=== PATIENT | female | born 1950 | race Caucasian/White ===

== ENCOUNTER 2017-04-19 15:28 | Emergency (ER) | payer MEDICARE ==
[2017-04-19] MEDS ORDERED: DEXAMETHASONE 10 MG/ML VIAL IVP STA (16:26)
[2017-04-19] MEDS ORDERED: HYDROmorphone 1 MG/ML SYRINGE IVP STA (16:26)
--- NOTE | 2017-04-19 16:28 | ED Physician Documentation ---
History of Present Illness - Stated complaint Stated Complaint: LEFT LEG PX - Chief complaint Chief Complaint: Ext Problem - History obtained from History obtained from: Patient, Family - History of Present Illness Timing: Other (67-year-old woman with fibromyalgia and chronic arthritis maintained on MS Contin 3 times daily presents with about 2 weeks of slowly worsening atraumatic lateral left leg pain that feels like she is being hit with a sledgehammer. She does not find any particular position more or less comfortable. There is no associated incontinence and she denies weakness, numbness, or tingling. She has chronic back pain which is not increased from its baseline. She also has significant worsening chronic pedal edema which was not helped with her last dose of Lasix. There is no associated chest pain, trouble breathing, or history of heart or renal issues.) Review of Systems Constitutional: denies: Fever, Chills Cardiac: denies: Chest pain / pressure, Palpitations Respiratory: denies: Dyspnea, Cough GI: denies: Abdominal Pain, Nausea, Vomiting PD PAST MEDICAL HISTORY - Past Medical History Cardiovascular: Hypertension, High cholesterol Respiratory: None Neuro: CVA, TIA Endocrine/Autoimmune: HyPOthyroidism GI: None MANAGER OF PROJECT MANAGEMENT: None : None HEENT: None Psych: Depression, Anxiety, Panic attacks Musculoskeletal: Osteoarthritis Derm: None - Past Surgical History Past Surgical History: Yes General: Appendectomy Ortho: Arthroscopic surgery /MANAGER OF PROJECT MANAGEMENT: Dilation and currettage, Tubal ligation - Present Medications Home Medications: Ambulatory Orders Medication Instructions Recorded Confirmed HYDROcod/ACETAM 5/325 [Vicodin 1 - 2 ea PO Q6H PRN 02/05/13 07/05/15 5/325] Levothyroxine [Synthroid] 125 mcg PO QDAC 02/05/13 07/05/15 Lisinopril 10 mg PO DAILY 10/24/13 07/05/15 Simvastatin [Zocor] 40 mg PO HS 10/24/13 07/05/15 traZODone [Desyrel] 150 mg PO ONCE 10/24/13 07/05/15 Aspirin 325 mg PO DAILY 11/15/13 07/05/15 Morphine ER [Ms Contin] 60 mg PO Q8H 11/16/13 07/05/15 Diphenoxylate/Atropine [Lomotil] 1 each PO QID PRN #8 tablet 01/02/14 07/05/15 Ondansetron [Zofran] 4 mg PO Q6H PRN #10 tablet 01/02/14 07/05/15 Oxycodone HCl/Acetaminophen 1 - 2 tab PO Q4H PRN #10 tablet 07/20/15 [Percocet 5-325 mg Tablet] oxyCODONE [Roxicodone] 10 mg PO Q6H PRN #20 tablet 04/19/17 predniSONE [Deltasone] 20 mg PO [id number] #21 tab 04/19/17 - Allergies Allergies/Adverse Reactions: Allergies Allergy/AdvReac Type Severity Reaction Status Date / Time naproxen [From Naprosyn] Allergy Mild Unknown Verified 07/05/15 14:25 - Social History Does the pt smoke?: No Smoking Status: Never smoker Does the pt drink ETOH?: No Does the pt have substance abuse?: No - Immunizations Immunizations are current?: Yes - POLST Patient has POLST: Yes POLST Status: DNR PD ED PE NORMAL - Vitals Vital signs reviewed: Yes - General General: Alert and oriented X 3, No acute distress - Cardiac Cardiac: RRR, No murmur - Respiratory Respiratory: No respiratory distress, Clear bilaterally - Abdomen Abdomen: Non tender - Extremities Extremities: Other (She has massive pedal edema that is pitting of both legs and both legs are tender, left greater than right, all the tenderness is below the knee. She does have mildly diminished sensation in the left L4 distribution , I am unable to check reflexes because of body habitus and discomfort.) - Neuro Neuro: Alert and oriented X 3, Normal speech - Psych Psych: Normal mood, Normal affect Results - Vitals Vitals: Vital Signs - 24 hr 04/19/17 04/19/17 15:45 17:56 Temperature 36.6 C Heart Rate 66 68 Respiratory 22 16 Rate Blood Pressure 134/82 H 135/78 H O2 Saturation 95 97 Oxygen O2 Source Room air - Labs Labs: Laboratory Tests 04/19/17 04/19/17 04/19/17 17:05 17:05 17:05 WBC 12.6 H RBC 4.27 Hgb 13.7 Hct 41.7 MCV 97.5 MCH 32.1 H MCHC 32.9 RDW 14.5 Plt Count 178 MPV 8.9 Neut # 7.4 H Lymph # 4.0 H [place] # 0.8 Eos # 0.4 Baso # 0.0 Absolute Nucleated RBC 0.01 Nucleated RBCs 0.1 Sodium 139 Potassium 3.8 Chloride 100 L Carbon Dioxide 30 Anion Gap 9.0 BUN 23 H Creatinine 0.9 Estimated GFR (MDRD) 63 L Glucose 136 H Calcium 9.2 B-Natriuretic Peptide 48 - Rads (name of study) BLE dopplers Radiology: EMP read contemporaneously (neg) PD MEDICAL DECISION MAKING - ED course ED course: 67-year-old woman with what seems like sciatica, there was no injury. DVT is considered but ultrasound negative for same. She does have significant edema and takes intermittent Lasix at home and an extra dose tonight was recommended. Departure - Departure Disposition: Home, Self Care Clinical Impression: Pedal edema Pain of lower extremity Qualifiers: Laterality: left Qualified Code(s): M79.605 - Pain in left leg Condition: Good Record reviewed to determine appropriate education?: Yes Prescriptions: predniSONE [Deltasone] 20 mg PO [id number] #21 tab oxyCODONE [Roxicodone] 10 mg PO Q6H PRN #20 tablet PRN Reason: Pain Comments: Take an extra dose of Lasix tonight. Hopefully the steroids will help with what seems like sciatica. Call Dr. Cramer's office in the morning for further guidance. Return for new symptoms.
[2017-04-19] MEDS ORDERED: DEXAMETHASONE 10 MG/ML VIAL ONE (16:59)
[2017-04-19] MEDS ORDERED: HYDROmorphone 1 MG/ML SYRINGE ONE (16:59)
[2017-04-19 17:21] LABS: BASOPHILS % (AUTO) 0.4 %; EOSINOPHILS # (AUTO) 0.4 10^3/uL (0.0-0.7); EOSINOPHILS % (AUTO) 2.9 %; HCT - HEMATOCRIT 41.7 % (37.0-47.0); HGB - HEMOGLOBIN 13.7 g/dL (12.0-16.0); LYMPHOCYTES % (AUTO) 31.5 %; MEAN CORPUSCULAR HEMOGLOBIN 32.1 pg (27.0-31.0); MEAN CORPUSCULAR HGB CONC 32.9 g/dL (32.0-36.0); MEAN CORPUSCULAR VOLUME 97.5 fL (81.0-99.0); MEAN PLATELET VOLUME 8.9 fL (7.9-10.8); MONOCYTES # (AUTO) 0.8 10^3/uL (0.0-1.0); MONOCYTES % (AUTO) 6.6 %; NEUTROPHILS # (AUTO) 7.4 10^3/uL (1.5-6.6); NEUTROPHILS % (AUTO) 58.6 %; NUCLEATED RED BLOOD CELLS AUTO 0.1 /100WBC; RED BLOOD COUNT 4.27 10^6/uL (4.20-5.40); RED CELL DISTRIBUTION WIDTH 14.5 % (12.0-15.0); UNCORRECTED WHITE BLOOD COUNT 12.6 x10^3/uL; WHITE BLOOD COUNT 12.6 x10^3/uL (4.8-10.8)
[2017-04-19 17:30] LABS: CALCIUM 9.2 mg/dL (8.5-10.3); CREATININE 0.9 mg/dL (0.4-1.0); POTASSIUM 3.8 mmol/L (3.5-5.0)
[2017-04-19] MEDS ORDERED: ACETAMINOPHEN 1,000 MG/100 ML 100 ML IV STA (18:10)
[2017-04-19] MEDS ORDERED: ACETAMINOPHEN 1,000 MG/100 ML 100 ML IV ONE (18:17)
--- NOTE | 2017-04-19 18:53 | Ultrasound Preliminary Report ---
Exam: US Duplex Ext Veins Bilateral IMPRESSION: No evidence for deep venous thrombosis bilaterally. [facility] SITE ID: [id number]
--- NOTE | 2017-04-19 18:55 | Ultrasound Report ---
EXAM: BILATERAL LOWER EXTREMITY VENOUS ULTRASOUND EXAM DATE: 04/19/2017 06:40 PM. CLINICAL HISTORY: Leg pain and swelling. COMPARISON: None. TECHNIQUE: Real-time sonographic vascular imaging was performed by the leave specialist through the lower extremities utilizing both color-flow and Doppler spectral analysis. Multiple ict sales representative static i mages were saved for review. FINDINGS: Right: Common Femoral Vein (CFV): Normal. CFV-GSV Junction: Normal. Profunda Femoral Vein (PFV): Normal. Femoral Vein (FV) Prox: Normal. Femoral Vein (FV) Mid: Normal. Femoral Vein (FV) Dist: Normal. Popliteal Vein: Normal. Posterior Tibial Veins: Normal. Peroneal Veins: Normal. Left: Common Femoral Vein (CFV): Normal. CFV-GSV Junction: Normal. Profunda Femoral Vein (PFV): Normal. Femoral Vein (FV) Prox: Normal. Femoral Vein (FV) Mid: Normal. Femoral Vein (FV) Dist: Normal. Popliteal Vein: Normal. Posterior Tibial Veins: Normal. Peroneal Veins: Normal. Other: None. IMPRESSION: No evidence for deep venous thrombosis bilaterally. [facility] Referring Provider Line: [phone] SITE ID: [id number]
[2017-04-19 19:27] VITALS: BP 153/87
== END 2017-04-19 19:25 | disposition home or self-care (01) ==
LOC: ED 15:28
DX: R60.0 Localized edema (principal); M79.605 Pain in left leg; I10 Essential (primary) hypertension; E78.00 Pure hypercholesterolemia, unspecified; Z86.73 Personal history of transient ischemic attack (TIA), and cerebral infarction without residual deficits; E03.9 Hypothyroidism, unspecified; M19.90 Unspecified osteoarthritis, unspecified site; M79.7 Fibromyalgia; Z79.82 Long term (current) use of aspirin
CPT/HCPCS: 36415; 80048; 83880; 85025; 93970; 96374; 96375; 99283; 99284; J0131; J1170

== ENCOUNTER 2017-05-18 05:56 | Outpatient (CLI) | payer MEDICARE | END 2017-05-18 05:57 | disposition critical access hospital (66) | LOC: EMS 05:56 | PROVIDERS: ATTEND Surgery | DX: R46.4 Slowness and poor responsiveness (principal); R53.83 Other fatigue; R53.1 Weakness | CPT/HCPCS: A0425; A0429 ==

== ENCOUNTER 2017-05-18 06:17 | Emergency (ER) | payer MEDICARE ==
[2017-05-18] MEDS ORDERED: DEXAMETHASONE 10 MG/ML VIAL IVP STA (07:32)
[2017-05-18] MEDS ORDERED: SODIUM CHLORIDE 0.9% 1,000 ML IV ONE (07:32)
--- NOTE | 2017-05-18 07:40 | ED Physician Documentation ---
PD HPI ALTERED MENTAL STATUS - Stated complaint Stated Complaint: POSS CVA - Chief complaint Chief Complaint: Neuro - History obtained from History obtained from: Patient, Family - History of Present Illness Timing - onset: Enter time (399), Today Timing - duration: Hours Timing - details: Abrupt onset, Still present Quality / character: Less responsive, Confused, Memory Loss Associated symptoms: Fever, Urinary sx, General weakness Contributing factors: No: Anticoagulated Basline status: Alert and oriented X 3, Ambulatory, Independent Similar symptoms before: Diagnosis (CVA) Recently seen: Emergency Dept (Seen here last month with leg swelling and this improved with prednisone.) - Additional information Additional information: 67-year-old female with a prior history of CVA, leaving her with some speech difficulties, has developed some weakness and speech latency this morning. She was last seen normal 2:30 PM yesterday when she went to bed. She woke at 04:00 and is having some difficulty with generalized weakness and speech latency. She is having trouble with short-term memory and with returning answers. She has generalized and not lateralized weakness and she has had fever and chills. She has had some urinary incontinence as it is been difficult for her to get out of bed in time to get to the bathroom. She has normal swelling of her lower extremities and she relates that the amount of redness is about the same as usual and the amount of swelling is slightly more than normal. She complains of difficulty with her equilibrium and balance and shakiness. Review of Systems Constitutional: reports: Fever, Chills, Fatigue, Sweats Eyes: denies: Decreased vision Ears: denies: Ear pain Nose: denies: Rhinorrhea / runny nose, Congestion Throat: denies: Dental pain / toothache, Sore throat Cardiac: denies: Chest pain / pressure, Palpitations Respiratory: denies: Dyspnea, Cough GI: denies: Abdominal Pain, Nausea, Vomiting, Constipation, Diarrhea : reports: Incontinent. denies: Dysuria Skin: denies: Rash Musculoskeletal: reports: Extremity pain, Extremity swelling. denies: Neck pain , Back pain Neurologic: reports: Generalized weakness, Altered mental status. denies: Focal weakness, Numbness, Headache, Head injury, LOC PD PAST MEDICAL HISTORY - Past Medical History Cardiovascular: Hypertension, High cholesterol Respiratory: None Neuro: CVA, TIA Endocrine/Autoimmune: HyPOthyroidism GI: None BUSINESS RELATIONS MANAGER: None : None HEENT: None Psych: Depression, Anxiety, Panic attacks Musculoskeletal: Osteoarthritis Derm: None - Past Surgical History Past Surgical History: Yes General: Appendectomy Ortho: Arthroscopic surgery /BUSINESS RELATIONS MANAGER: Dilation and currettage, Tubal ligation - Present Medications Home Medications: Ambulatory Orders Medication Instructions Recorded Confirmed HYDROcod/ACETAM 5/325 [Vicodin 1 - 2 ea PO Q6H PRN 02/05/13 05/18/17 5/325] Levothyroxine [Synthroid] 125 mcg PO QDAC 02/05/13 05/18/17 traZODone [Desyrel] 200 mg PO DAILY PM 10/24/13 05/18/17 Aspirin 325 mg PO DAILY 11/15/13 05/18/17 Morphine ER [Ms Contin] 60 mg PO Q8H 11/16/13 05/18/17 Ondansetron [Zofran] 4 mg PO Q6H PRN #10 tablet 01/02/14 05/18/17 Azithromycin [Zithromax] 250 mg PO DAILY #6 tablet 05/18/17 - Allergies Allergies/Adverse Reactions: Allergies Allergy/AdvReac Type Severity Reaction Status Date / Time naproxen [From Naprosyn] Allergy Mild Unknown Verified 05/18/17 06:26 - Social History Does the pt smoke?: No Smoking Status: Never smoker Does the pt drink ETOH?: No Does the pt have substance abuse?: No - Immunizations Immunizations are current?: Yes - POLST Patient has POLST: Yes POLST Status: DNR PD ED PE NORMAL - Vitals Vital signs reviewed: Yes (Febrile and hypertensive) - General General: No acute distress, Well developed/nourished - HEENT HEENT: Atraumatic, PERRL, EOMI, Other (There are 3 beats of nystagmus laterally bilaterally and both TMs are erythematous along the umbo and into the attic.) - Neck Neck: Supple, no meningeal sign, No bony TTP - Cardiac Cardiac: RRR, No murmur - Respiratory Respiratory: No respiratory distress, Clear bilaterally - Abdomen Abdomen: Soft, Non tender, Other (Obese) - Back Back: No CVA TTP, No spinal TTP - Derm Derm: Normal color, Warm and dry, No rash - Extremities Extremities: No deformity, Other (Marked pitting edema bilaterally with some erythema to the anterior calves bilaterally worse on the right than the left.) - Neuro Neuro: No motor deficit, No sensory deficit - Psych Psych: Normal mood, Normal affect Results - Vitals Vitals: Vital Signs - 24 hr 05/18/17 05/18/17 05/18/17 06:19 07:05 08:21 Temperature 37.8 C H 36.8 C Heart Rate 83 74 73 Respiratory 18 13 16 Rate Blood Pressure 158/78 H 149/67 H 119/73 O2 Saturation 96 94 97 05/18/17 05/18/17 05/18/17 09:23 10:44 11:27 Temperature 36.7 C 36.4 C L Heart Rate 76 67 65 Respiratory 16 16 18 Rate Blood Pressure 130/76 126/101 H 155/82 H O2 Saturation 95 95 88 L 05/18/17 05/18/17 13:30 16:29 Temperature Heart Rate 63 64 Respiratory 15 20 Rate Blood Pressure 125/60 135/68 H O2 Saturation 96 95 Oxygen O2 Source Nasal cannula Oxygen Flow Rate 2 - EKG (time done) 0744 Rate: Rate (enter#) (70) QRS: Low voltage Compare to prior EKG: Changed from prior EKG (SPT 11-15-13 rate has slowed) Computer interpretation: Agree with computer - Labs Labs: Laboratory Tests 05/18/17 05/18/17 05/18/17 06:55 06:55 06:55 WBC 15.9 H RBC 4.23 Hgb 13.5 Hct 40.9 MCV 96.9 MCH 31.9 H MCHC 33.0 RDW 14.5 Plt Count 218 MPV 8.2 Neut # 13.5 H Lymph # 1.6 [place] # 0.6 Eos # 0.0 Baso # 0.2 H Absolute Nucleated RBC 0.00 Nucleated RBCs 0.0 Sodium 141 Potassium 4.3 Chloride 100 L Carbon Dioxide 32 Anion Gap 9.0 BUN 14 Creatinine 1.0 Estimated GFR (MDRD) 56 L Glucose 144 H Calcium 9.0 Total Bilirubin 0.2 AST 26 ALT 14 Alkaline Phosphatase 50 Troponin I 0.05 Total Protein 7.1 Albumin 3.5 Globulin 3.6 Albumin/Globulin Ratio 1.0 Lipase 36 Urine Color Urine Clarity Urine pH Ur Specific [place] Urine Protein Urine Glucose (UA) Urine Ketones Urine Occult Blood Urine Nitrite Urine Bilirubin Urine Urobilinogen Ur Leukocyte Esterase Ur Microscopic Review Urine Culture Comments 05/18/17 05/18/17 08:36 16:16 WBC RBC Hgb Hct MCV MCH MCHC RDW Plt Count MPV Neut # Lymph # [place] # Eos # Baso # Absolute Nucleated RBC Nucleated RBCs Sodium Potassium Chloride Carbon Dioxide Anion Gap BUN Creatinine Estimated GFR (MDRD) Glucose Calcium Total Bilirubin AST ALT Alkaline Phosphatase Troponin I < 0.04 Total Protein Albumin Globulin Albumin/Globulin Ratio Lipase Urine Color DARK YELLOW Urine Clarity CLEAR Urine pH 5.5 Ur Specific [place] >=1.030 H Urine Protein NEGATIVE Urine Glucose (UA) NEGATIVE Urine Ketones NEGATIVE Urine Occult Blood NEGATIVE Urine Nitrite NEGATIVE Urine Bilirubin NEGATIVE Urine Urobilinogen 0.2 (NORMAL) Ur Leukocyte Esterase NEGATIVE Ur Microscopic Review NOT INDICATED Urine Culture Comments NOT INDICATED - Rads (name of study) CT head without Radiology: Prelim report reviewed (Impression: 1. No acute intracranial abnormality.2. Encephalomalacia in the left frontal lobe and bilateral cerebellum are demonstrated similar to the prior examination.), EMP read indepedently, See rad report 2 view chest Radiology: Prelim report reviewed (Impression: No focal consolidation.), EMP read indepedently, See rad report CT angio chest Radiology: Prelim report reviewed (Impression: 1. No evidence for pulmonary emboli bilaterally. 2. No focal airspace consolidation. 3. No mediastinal or hilar lymphadenopathy. 4. 4.2 cm right thyroid nodule. Dedicated thyroid ultrasound could be obtained for further evaluation. 5. Possible 1.3 cm left adrenal nodule. Adrenal protocol CT could be obtained for further evaluation if clinically indicated.), EMP read indepedently, See rad report Procedures - IVC sono (time) 0740 Bedside IVC sono: IVC measures (cm) (0.89), Dehydration PD MEDICAL DECISION MAKING - ED course Complexity details: reviewed old records, reviewed results, re-evaluated patient , considered differential, d/w patient, d/w family ED course: 67-year-old female with a history of prior CVA has woken this morning with speech latency word finding and urinary incontinence with a fever. She is found to be dehydrated on interrogation of the inferior vena cava she does also appear to have some nystagmus and complaints of disequilibrium and on examination has inflammation bilaterally in the middle ear. Here in the emergency department she is given intravenous saline and dexamethasone and a catheterized urine specimen is obtained. The patient did have elevation of her white blood cell count and low-grade fever and hypoxia with room air sat in the upper 80s. For this reason I was concerned about the possibility of alternative diagnosis specifically pulmonary embolism and a CT angiogram of the chest was obtained demonstrating no evidence of pulmonary embolism and no obvious infection or pathology in the chest itself. Her hypoxia resolved. The patient does have dramatic improvement in her general overall affect and ability to perform. She is able to get up and ambulate in the department with use of her walker she passes her road test, a repeat troponin is without abnormality, and she appears more hydrated. She does require medication for her pains here in the emergency department and she requests more pain medication and she is instructed to follow-up with her prescriber for adjustments to her medications. The patient has been treated for otitis media and she indicates that she has been having some issues with vertigo and with extraneous sounds especially through the right ear. She has an incidental right thyroid nodule and she will follow up with Dr. Cramer for further work up. Departure - Departure Disposition: 01 Home, Self Care Clinical Impression: Dehydration, Pedal edema Otitis media Qualifiers: Otitis media type: suppurative Chronicity: acute Laterality: bilateral Recurrence: not specified as recurrent Spontaneous tympanic membrane rupture: without spontaneous rupture Qualified Code(s): H66.003 - Acute suppurative otitis media without spontaneous rupture of ear drum, bilateral Instructions: ED Dehydration, ED Otitis Media Acute Adult Follow-Up: Madeline Cramer MD [Primary Care Provider] - Prescriptions: Azithromycin [Zithromax] 250 mg PO DAILY #6 tablet
[2017-05-18 07:52] LABS: BASOPHILS # (AUTO) 0.2 10^3/uL (0.0-0.1); BASOPHILS % (AUTO) 1.3 %; EOSINOPHILS % (AUTO) 0.3 %; HCT - HEMATOCRIT 40.9 % (37.0-47.0); HGB - HEMOGLOBIN 13.5 g/dL (12.0-16.0); LYMPHOCYTES # (AUTO) 1.6 10^3/uL (1.5-3.5); LYMPHOCYTES % (AUTO) 9.8 %; MEAN CORPUSCULAR HEMOGLOBIN 31.9 pg (27.0-31.0); MEAN CORPUSCULAR VOLUME 96.9 fL (81.0-99.0); MEAN PLATELET VOLUME 8.2 fL (7.9-10.8); MONOCYTES # (AUTO) 0.6 10^3/uL (0.0-1.0); MONOCYTES % (AUTO) 3.7 %; NEUTROPHILS # (AUTO) 13.5 10^3/uL (1.5-6.6); NEUTROPHILS % (AUTO) 84.9 %; RED BLOOD COUNT 4.23 10^6/uL (4.20-5.40); RED CELL DISTRIBUTION WIDTH 14.5 % (12.0-15.0); UNCORRECTED WHITE BLOOD COUNT 15.9 x10^3/uL; WHITE BLOOD COUNT 15.9 x10^3/uL (4.8-10.8)
[2017-05-18 08:03] LABS: BILIRUBIN,TOTAL 0.2 mg/dL (0.2-1.0); POTASSIUM 4.3 mmol/L (3.5-5.0); TOTAL PROTEIN 7.1 g/dL (6.7-8.2)
[2017-05-18] MEDS ORDERED: DEXAMETHASONE 10 MG/ML VIAL ONE (08:14)
--- NOTE | 2017-05-18 08:22 | XRAY Preliminary Report ---
Exam: XR Chest 2 View PA/LAT IMPRESSION: No focal consolidation. [facility] SITE ID: [id number]
--- NOTE | 2017-05-18 08:24 | XRAY Report ---
EXAM: CHEST RADIOGRAPHY EXAM DATE: 05/18/2017 08:06 AM. CLINICAL HISTORY: Fever confusion. COMPARISON: None. TECHNIQUE: 2 views. FINDINGS: Lungs/Pleura: No focal opacities evident. No pleural effusion. No pneumothorax. Normal volumes. Mediastinum: The heart is enlarged. The pulmonary vasculature is within normal limits. Other: Multilevel mild degenerative disk disease throughout the thoracic spine. IMPRESSION: No focal consolidation. [facility] Referring Provider Line: [phone] SITE ID: [id number]
--- NOTE | 2017-05-18 08:26 | CT Preliminary Report ---
Exam: CT Head W/O IMPRESSION: 1. No acute intracranial abnormality. 2. Encephalomalacia in the left frontal lobe and bilateral cerebellum are redemonstrated similar to t he prior examination. [facility] SITE ID: [id number]
--- NOTE | 2017-05-18 08:29 | CT Report ---
EXAM: CT HEAD EXAM DATE: 05/18/2017 08:10 AM. CLINICAL HISTORY: Confusion . COMPARISON: Head CT dated 07/20/2015. TECHNIQUE: Multiaxial CT images were obtained from the foramen magnum to the vertex. IV contrast: Non e. Reformats: Coronal. In accordance with CT protocol optimization, one or more of the following dose reduction techniques w ere utilized for this exam: automated exposure control, adjustment of mA and/or KV based on patient s ize, or use of iterative reconstructive technique. FINDINGS: Parenchyma: Encephalomalacia in the left frontal lobe and bilateral cerebellum are similar to the fani or examination. No intraparenchymal hemorrhage. No evidence of mass, midline shift, or CT findings of infarction. Otherwise. Extraaxial Spaces: Normal for age. No subdural or epidural collections identified. Ventricles: Normal in size and position. Sinuses: Imaged paranasal sinuses, orbits, and mastoids show no significant abnormality. Bones: No evidence of fracture or calvarial defect. Other: None. IMPRESSION: 1. No acute intracranial abnormality. 2. Encephalomalacia in the left frontal lobe and bilateral cerebellum are redemonstrated similar to t he prior examination. [facility] Referring Provider Line: [phone] SITE ID: [id number]
[2017-05-18 08:56] LABS: BILIRUBIN,URINE NEGATIVE (NEGATIVE); PH,URINE 5.5 PH (5.0-7.5)
[2017-05-18 08:59] LABS: UA CHARGE (STRIP ONLY) YES; UR CULTURE IF IND NOT INDICATED
[2017-05-18] MEDS ORDERED: MORPHINE ER 15 MG TABLET PO STA (10:35)
[2017-05-18] MEDS ORDERED: HYDROcod/ACETAM 10 MG/325 MG TABLET PO ONE (10:38)
[2017-05-18] MEDS ORDERED: HYDROcod/ACETAM 10 MG/325 MG TABLET ONE ×2 (10:48→16:33)
[2017-05-18] MEDS ORDERED: IOPAMIDOL-300 100 ML VIAL IVP ONE ×2 (12:54)
--- NOTE | 2017-05-18 13:41 | CT Preliminary Report ---
Exam: CT Chest Angio (PE) IMPRESSION: 1. No evidence for pulmonary emboli bilaterally. 2. No focal airspace consolidation. 3. No mediastinal or hilar lymphadenopathy. 4. 4.2 cm right thyroid nodule. Dedicated thyroid ultrasound could be obtained for further evaluation . 5. Possible 1.3 cm left adrenal nodule. Adrenal protocol CT could be obtained for further evaluation if clinically indicated. [facility] SITE ID: [id number]
--- NOTE | 2017-05-18 13:43 | CT Report ---
EXAM: CT ANGIOGRAM CHEST EXAM DATE: 05/18/2017 01:04 PM. CLINICAL HISTORY: Hypoxia, clear x-ray. COMPARISON: Radiograph from earlier today. TECHNIQUE: Routine helical imaging was performed through the chest in the pulmonary arterial phase. I V Contrast: 80 cc Isovue 300. Reconstructions: Coronal 3-D MIP reconstructions.Sagittal and coronal. In accordance with CT protocol optimization, one or more of the following dose reduction techniques w ere utilized for this exam: automated exposure control, adjustment of mA and/or KV based on patient s ize, or use of iterative reconstructive technique. FINDINGS: Pulmonary Arteries: Diagnostic quality: Adequate through the segmental arteries. No evidence for acute or chronic pulmona ry emboli. RV/LV is within normal limits. There is no interventricular septal bowing. There is no reflux of cont rast material in the IVC. Lungs/Pleura: No consolidation, nodules, or edema. Mild scarring in the inferior right middle lobe an d lung bases. No effusions or pneumothorax. Mediastinum: Enlargement of the right thyroid with a focal 4.2 cm nodule, and resultant mild leftward deviation of the trachea. No evidence for tracheal compression. Thoracic Aorta: Unremarkable. Upper Abdomen: Possible 1.3 cm left adrenal nodule, incompletely visualized. Otherwise unremarkable. Other: None. IMPRESSION: 1. No evidence for pulmonary emboli bilaterally. 2. No focal airspace consolidation. 3. No mediastinal or hilar lymphadenopathy. 4. 4.2 cm right thyroid nodule. Dedicated thyroid ultrasound could be obtained for further evaluation . 5. Possible 1.3 cm left adrenal nodule. Adrenal protocol CT could be obtained for further evaluation if clinically indicated. [facility] Referring Provider Line: [phone] SITE ID: [id number]
[2017-05-18] MEDS ORDERED: HYDROcod/ACETAM 10 MG/325 MG TABLET PO STA (16:24)
[2017-05-18 17:47] VITALS: BP 130/70
== END 2017-05-18 17:40 | disposition home or self-care (01) ==
LOC: EDUNIT# → ED 06:17
DX: E86.0 Dehydration (principal); H66.003 Acute suppurative otitis media without spontaneous rupture of ear drum, bilateral; R09.02 Hypoxemia; I10 Essential (primary) hypertension; E78.00 Pure hypercholesterolemia, unspecified; E03.9 Hypothyroidism, unspecified; Z79.82 Long term (current) use of aspirin; Z86.73 Personal history of transient ischemic attack (TIA), and cerebral infarction without residual deficits
CPT/HCPCS: 36415; 51701; 70450; 71020; 71275; 80053; 81003; 83690; 84484; 85025; 93005; 96361; 96374; 99284; 99285; A9270; Q9967; 81001; 87086

== ENCOUNTER 2017-06-16 10:15 | Outpatient (CLI) | payer MEDICARE | END 2017-06-16 10:16 | disposition EMS.NT | LOC: EMS 10:15 | PROVIDERS: ATTEND Surgery | DX: Z03.89 Encounter for observation for other suspected diseases and conditions ruled out (principal); W18.39XA Other fall on same level, initial encounter; Y92.032 Bedroom in apartment as the place of occurrence of the external cause ==

== ENCOUNTER 2017-12-28 16:45 | Outpatient (CLI) | payer MEDICARE ==
[2017-12-28 17:29] LABS: ALBUMIN 3.8 g/dL (3.2-5.5); ALBUMIN/GLOBULIN RATIO 1.1 (1.0-2.2); ALKALINE PHOSPHATASE 50 IU/L (42-121); ALT ALANINE AMINOTRANSFERASE 10 IU/L (10-60); AST ASPARTATE AMINOTRANSFERASE 18 IU/L (10-42); BILIRUBIN,TOTAL 0.7 mg/dL (0.2-1.0); BUN - BLOOD UREA NITROGEN 15 mg/dL (6-20); CALCIUM 8.9 mg/dL (8.5-10.3); CARBON DIOXIDE - CO2 30 mmol/L (21-32); CHLORIDE 101 mmol/L (101-111); CHOL/HDL RATIO 4.3 (<4.4); CHOLESTEROL 200 mg/dL; CREATININE 0.8 mg/dL (0.4-1.0); GFR - MDRD 72 (>89); GLUCOSE 95 mg/dL (70-100); HDL CHOLESTEROL 47 mg/dL; LDL CHOLESTEROL,CALCULATED 122 mg/dL; LDL/HDL RATIO 2.6 (<4.4); SODIUM 140 mmol/L (135-145); TOTAL PROTEIN 7.2 g/dL (6.7-8.2); VLDL CHOLESTEROL 31 mg/dL
[2017-12-28 17:50] LABS: BASOPHILS # (AUTO) 0.1 10^3/uL (0.0-0.1); BASOPHILS % (AUTO) 0.5 %; EOSINOPHILS # (AUTO) 0.2 10^3/uL (0.0-0.7); HGB - HEMOGLOBIN 13.7 g/dL (12.0-16.0); LYMPHOCYTES # (AUTO) 3.2 10^3/uL (1.5-3.5); LYMPHOCYTES % (AUTO) 30.1 %; MEAN CORPUSCULAR HEMOGLOBIN 31.8 pg (27.0-31.0); MEAN CORPUSCULAR HGB CONC 32.7 g/dL (32.0-36.0); MEAN CORPUSCULAR VOLUME 97.1 fL (81.0-99.0); MEAN PLATELET VOLUME 8.7 fL (7.9-10.8); MONOCYTES # (AUTO) 0.6 10^3/uL (0.0-1.0); MONOCYTES % (AUTO) 6.1 %; NEUTROPHILS # (AUTO) 6.4 10^3/uL (1.5-6.6); NEUTROPHILS % (AUTO) 61.3 %; PLT - PLATELET COUNT 166 10^3/uL (130-450); RED BLOOD COUNT 4.31 10^6/uL (4.20-5.40); RED CELL DISTRIBUTION WIDTH 14.1 % (12.0-15.0); WHITE BLOOD COUNT 10.5 x10^3/uL (4.8-10.8)
[2017-12-28 18:30] LABS: HB2 TOTAL 15.3 g/dL; HEMOGLOBIN A1C 0.6 g/dL; HEMOGLOBIN A1C % 5.7 % (4.6-6.2)
== END 2017-12-28 16:46 | disposition home or self-care (01) ==
LOC: LAB 16:45
PROVIDERS: ATTEND Internal Medicine
DX: I10 Essential (primary) hypertension (principal); R73.01 Impaired fasting glucose; M19.90 Unspecified osteoarthritis, unspecified site; F32.9 Major depressive disorder, single episode, unspecified; Z13.6 Encounter for screening for cardiovascular disorders; I63.9 Cerebral infarction, unspecified; I87.2 Venous insufficiency (chronic) (peripheral); E03.9 Hypothyroidism, unspecified; R60.9 Edema, unspecified; Z79.899 Other long term (current) drug therapy
CPT/HCPCS: 36415; 80053; 80061; 83036; 83721; 84443; 85025

== ENCOUNTER 2018-07-06 15:46 | Emergency (ER) | payer MEDICARE ==
[2018-07-06 16:21] LABS: BASOPHILS % (AUTO) 0.3 %; EOSINOPHILS % (AUTO) 0.3 %; LYMPHOCYTES # (AUTO) 3.8 10^3/uL (1.5-3.5); LYMPHOCYTES % (AUTO) 27.2 %; MEAN CORPUSCULAR HEMOGLOBIN 32.1 pg (27.0-31.0); MEAN CORPUSCULAR HGB CONC 33.7 g/dL (32.0-36.0); MEAN PLATELET VOLUME 8.3 fL (7.9-10.8); NEUTROPHILS % (AUTO) 65.2 %; PLT - PLATELET COUNT 200 10^3/uL (130-450); RED BLOOD COUNT 4.37 10^6/uL (4.20-5.40); RED CELL DISTRIBUTION WIDTH 13.9 % (12.0-15.0); WHITE BLOOD COUNT 13.8 x10^3/uL (4.8-10.8)
[2018-07-06 16:34] LABS: ALBUMIN 4.1 g/dL (3.2-5.5); ALBUMIN/GLOBULIN RATIO 1.2 (1.0-2.2); CALCIUM 9.3 mg/dL (8.5-10.3); CREATININE 0.8 mg/dL (0.4-1.0); TOTAL PROTEIN 7.4 g/dL (6.7-8.2)
--- NOTE | 2018-07-06 17:51 | XRAY Report ---
Reason: chest tightness Procedure Date: 07/06/2018 Accession Number: [id number] / [id number] Procedure: XR - Chest 2 View X-Ray CPT Code: 35468 FULL RESULT: EXAM: CHEST RADIOGRAPHY EXAM DATE: 07/06/2018 05:23 PM. CLINICAL HISTORY: Chest tightness. COMPARISON: CHEST 2 VIEW PA/LAT 05/18/2017 7:34 AM. TECHNIQUE: 2 views. FINDINGS: Lungs/Pleura: No focal opacities evident. No pleural effusion. No pneumothorax. Normal volumes. Mediastinum: Heart and mediastinal contours are unremarkable. Other: There is bilateral shoulder degenerative disease. IMPRESSION: No acute intrathoracic plain film abnormality. [facility]
--- NOTE | 2018-07-06 18:47 | ED Physician Documentation ---
PD HPI CHEST PAIN - Stated complaint Stated Complaint: HEART FLUTTER/HIGH BP SENT BY DOC - Chief complaint Chief Complaint: Cardiac - History obtained from History obtained from: Patient - History of Present Illness Timing - onset: How many weeks ago (has had headaches and nausea for several weeks. Has had some dyspnea and chest fluttering for few days. Is feeling anxious and is sad thinking about family members that had a year ago.) Timing - onset during: Light activity Timing - details: Intermittant, Waxing and waning Quality: Tightness (and feeling of fluttering in chest) Location: Substernal Radiation: Back. No: Jaw, Neck Associated symptoms: Feeling faint / dizzy, General Weakness, Palpitations. No: Shortness of air, Nausea, Vomiting, Cough Similar symptoms before: No diagnosis Recently seen: Clinic (seen PMD without particular Rx.) Review of Systems Constitutional: reports: Myalgias. denies: Fever, Chills Nose: denies: Rhinorrhea / runny nose, Congestion Throat: denies: Sore throat Cardiac: reports: Chest pain / pressure, Palpitations, Pedal edema (chronic ly mphedema). denies: Calf pain Respiratory: denies: Dyspnea, Cough GI: reports: Nausea, Constipation. 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 : None HEENT: None Psych: Depression, Anxiety, Panic attacks Musculoskeletal: Osteoarthritis Derm: None - Past Surgical History Past Surgical History: Yes General: Appendectomy Ortho: Arthroscopic surgery /HOGSHEAD PRESS OPERATOR: Dilation and currettage, Tubal ligation - Present Medications Home Medications: Ambulatory Orders Medication Instructions Recorded Confirmed HYDROcod/ACETAM 5/325 [Vicodin 1 - 2 ea PO Q6H PRN 02/05/13 07/06/18 5/325] Levothyroxine [Synthroid] 125 mcg PO QDAC 02/05/13 07/06/18 traZODone [Desyrel] 200 mg PO DAILY PM 10/24/13 07/06/18 Aspirin 325 mg PO DAILY 11/15/13 07/06/18 Morphine ER [Ms Contin] 60 mg PO Q8H 11/16/13 07/06/18 Ondansetron [Zofran] 4 mg PO Q6H PRN #10 tablet 01/02/14 07/06/18 Famotidine [Pepcid] 20 mg PO ONCE #30 tablet 07/06/18 Lisinopril 10 mg PO DAILY #20 tablet 07/06/18 Lorazepam [Ativan] 1 mg PO Q8H PRN #12 tablet 07/06/18 - Allergies Allergies/Adverse Reactions: Allergies Allergy/AdvReac Type Severity Reaction Status Date / Time naproxen [From Naprosyn] Allergy Mild Unknown Verified 07/06/18 15:59 - Social History Does the pt smoke?: No Smoking Status: Never smoker Does the pt drink ETOH?: No Does the pt have substance abuse?: No - Immunizations Immunizations are current?: Yes - POLST Patient has POLST: Yes POLST Status: DNR PD ED PE NORMAL - Vitals Vital signs reviewed: Yes - General General: Alert and oriented X 3, Well developed/nourished, Other (tearful and appears sad) - HEENT HEENT: Pharynx benign - Neck Neck: Supple, no meningeal sign, No adenopathy - Cardiac Cardiac: RRR, No murmur - Respiratory Respiratory: Clear bilaterally - Abdomen Abdomen: Normal bowel sounds, Soft, Non tender, Non distended - Female Female : Deferred - Rectal Rectal: Deferred - Back Back: No CVA TTP - Derm Derm: Normal color, Warm and dry - Extremities Extremities: No deformity, No tenderness to palpate, No calf tenderness / cord, Other (large legs bilaterally c/w lymphedema. ) - Neuro Neuro: Alert and oriented X 3, No motor deficit, Normal speech Results - Vitals Vitals: Vital Signs - 24 hr 07/06/18 07/06/18 07/06/18 15:55 18:03 19:42 Temperature 37.3 C 36.7 C Heart Rate 59 L 53 L 51 L Respiratory 17 18 12 Rate Blood Pressure 168/77 H 151/88 H 179/75 H O2 Saturation 96 99 98 07/06/18 07/06/18 20:27 21:19 Temperature Heart Rate 44 L 45 L Respiratory 11 L 15 Rate Blood Pressure 193/71 H 145/76 H O2 Saturation 94 94 Oxygen O2 Source Room air - EKG (time done) 15:57 Rate: Rate (enter#) (60) Rhythm: NSR [place]: Normal Intervals: Normal [place] Ischemia: Normal ST segments. No: ST elevation c/w ischemia, ST depression - Labs Labs: Laboratory Tests 07/06/18 07/06/18 07/06/18 16:12 16:12 16:12 WBC 13.8 H RBC 4.37 Hgb 14.0 Hct 41.5 MCV 95.0 MCH 32.1 H MCHC 33.7 RDW 13.9 Plt Count 200 MPV 8.3 Neut # (Auto) 9.0 H Lymph # (Auto) 3.8 H [place] # (Auto) 1.0 Eos # (Auto) 0.0 Baso # (Auto) 0.0 Absolute Nucleated RBC 0.00 Nucleated RBC % 0.0 Sodium 140 Potassium 3.5 Chloride 102 Carbon Dioxide 28 Anion Gap 10.0 BUN 14 Creatinine 0.8 Estimated GFR (MDRD) 72 L Glucose 108 H Calcium 9.3 Total Bilirubin 1.0 AST 22 ALT 11 Alkaline Phosphatase 56 Troponin I < 0.04 Total Protein 7.4 Albumin 4.1 Globulin 3.3 Albumin/Globulin Ratio 1.2 Lipase 25 Urine Color Urine Clarity Urine pH Ur Specific [place] Urine Protein Urine Glucose (UA) Urine Ketones Urine Occult Blood Urine Nitrite Urine Bilirubin Urine Urobilinogen Ur Leukocyte Esterase Ur Microscopic Review Urine Culture Comments 07/06/18 19:10 WBC RBC Hgb Hct MCV MCH MCHC RDW Plt Count MPV Neut # (Auto) Lymph # (Auto) [place] # (Auto) Eos # (Auto) Baso # (Auto) Absolute Nucleated RBC Nucleated RBC % Sodium Potassium Chloride Carbon Dioxide Anion Gap BUN Creatinine Estimated GFR (MDRD) Glucose Calcium Total Bilirubin AST ALT Alkaline Phosphatase Troponin I Total Protein Albumin Globulin Albumin/Globulin Ratio Lipase Urine Color DARK YELLOW Urine Clarity CLEAR Urine pH 7.0 Ur Specific [place] 1.010 Urine Protein NEGATIVE Urine Glucose (UA) NEGATIVE Urine Ketones NEGATIVE Urine Occult Blood TRACE-LYSE Urine Nitrite NEGATIVE Urine Bilirubin NEGATIVE Urine Urobilinogen 0.2 (NORMAL) Ur Leukocyte Esterase NEGATIVE Ur Microscopic Review NOT INDICATED Urine Culture Comments NOT INDICATED - Rads (name of study) chest xray Radiology: Prelim report reviewed (no intrathoracic abnormalities; shoulder arthritis bilaterally) PD MEDICAL DECISION MAKING - ED course Complexity details: considered differential (her granddaughter thinks it is stress as she had similar symptoms last year when family members , and the patient has been thinking about them recently. No obvious signs of CAD/ACS. ), d/w patient Departure - Departure Disposition: 01 Home, Self Care Clinical Impression: Chest discomfort, Grief reaction, Elevated blood pressure reading, Nausea Condition: Stable Record reviewed to determine appropriate education?: Yes Instructions: ED Chest Pain NonCardiac Follow-Up: Madeline Cramer MD [Primary Care Provider] - Prescriptions: Famotidine [Pepcid] 20 mg PO ONCE #30 tablet Lisinopril 10 mg PO DAILY #20 tablet Lorazepam [Ativan] 1 mg PO Q8H PRN #12 tablet PRN Reason: Anxiety Comments: We can start you on lisinopril daily for the next couple of weeks. This may not necessarily be a long-term medication if your blood pressure is elevated in response to situational grief and anxiety. Your EKG the chest x-ray and blood tests are normal without any signs of heart disease. Your nausea you have had might be related to a stomach irritation and I would suggest trying famotidine daily for a month to see if it helps. Continue usual medications. Use Ativan 2-3 times a day if needed for anxiety. Follow-up with your primary care this coming week. Discharge Date/Time: 07/06/18 21:33
[2018-07-06] MEDS ORDERED: MORPHINE ER 15 MG TABLET PO STA (19:22)
[2018-07-06] MEDS ORDERED: oxyCODONE 5 MG TABLET PO STA (19:23)
[2018-07-06] MEDS ORDERED: LORazepam 0.5 MG TABLET PO STA (19:23)
[2018-07-06] MEDS ORDERED: LISINOPRIL 5 MG TABLET PO STA (19:23)
[2018-07-06] MEDS: FAMOTIDINE 20 MG TABLET PO STA ×2 (20:06→20:53)
[2018-07-06 20:30] LABS: BILIRUBIN,URINE NEGATIVE (NEGATIVE); GLUCOSE, URINE (UA) NEGATIVE (NEGATIVE); KETONES,URINE (UA) NEGATIVE (NEGATIVE); LEUKOCYTE ESTERASE, URINE NEGATIVE (NEGATIVE); NITRITE,URINE NEGATIVE (NEGATIVE); OCCULT BLOOD,URINE TRACE-LYSE (NEGATIVE); PROTEIN,URINE NEGATIVE (NEGATIVE); UROBILINOGEN,URINE 0.2 (NORMAL) E.U./dL (NORMAL)
[2018-07-06 20:34] LABS: CLARITY,URINE CLEAR (CLEAR)
[2018-07-06] MEDS ORDERED: ACETAMINOPHEN 325 MG TABLET PO STA (21:19)
[2018-07-06 21:20] VITALS: BP 145/76
== END 2018-07-06 21:33 | disposition home or self-care (01) ==
LOC: ED 15:46
DX: R07.89 Other chest pain (principal); F43.20 Adjustment disorder, unspecified; I10 Essential (primary) hypertension; R11.0 Nausea
CPT/HCPCS: 36415; 71046; 80053; 81003; 83690; 84484; 85025; 93005; 99284; A9270; 81001; 87086

== ENCOUNTER 2018-12-21 18:18 | Emergency (ER) | payer MEDICARE ==
[2018-12-21 19:47] LABS: LEUKOCYTE ESTERASE, URINE LARGE (NEGATIVE); NITRITE,URINE POSITIVE (NEGATIVE); OCCULT BLOOD,URINE SMALL (NEGATIVE); PROTEIN,URINE >=300 mg/dL (NEGATIVE)
[2018-12-21 20:03] LABS: CLARITY,URINE HAZY (CLEAR)
[2018-12-21 20:04] LABS: BILIRUBIN,URINE NEGATIVE (NEGATIVE); ICTOTEST,URINE NEGATIVE
[2018-12-21 20:06] LABS: BACTERIA,URINE Many /HPF (None Seen); RBC,URINE 0-5 /HPF (0-5); SQUAMOUS EPITHELIAL CELL,UR FEW Squamous (<= Few); WBC CLUMPS,URINE PRESENT
[2018-12-21] MEDS ORDERED: LIDOCAINE 1% 2 ML VIAL MC ONE (20:32)
[2018-12-21] MEDS ORDERED: cefTRIAXone 1 GM VIAL IM STA (20:32)
--- NOTE | 2018-12-21 20:34 | ED Physician Documentation ---
PD HPI FEMALE - Stated complaint Stated Complaint: FEM /NAUSEA - Chief complaint Chief Complaint: General - History obtained from History obtained from: Patient, Family - History of Present Illness Timing - onset: How many days ago (4) Timing - duration: Days (4) Timing - details: Gradual onset, Still present Associated symptoms: Back pain, Dysuria, Urinary frequency Similar symptoms before: Diagnosis (UTI) Recently seen: Not recently seen - Additional information Additional information: 68-year-old female with a prior history of CVA has developed urinary urgency frequency and dysuria over the past 4 days. She has had some vomiting which she will periodically get over the past year and a half. She thinks she may have had a fever periodically over the last 4 days. She has some low back pain associated with this as well. Review of Systems Constitutional: reports: Fever, Chills, Myalgias, Fatigue Eyes: denies: Decreased vision Ears: denies: Ear pain Nose: denies: Rhinorrhea / runny nose, Congestion Throat: denies: Sore throat Cardiac: denies: Chest pain / pressure, Palpitations Respiratory: denies: Dyspnea, Cough GI: reports: Nausea, Vomiting. denies: Abdominal Pain : reports: Dysuria, Frequency Skin: denies: Rash Musculoskeletal: reports: Back pain. 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 : None HEENT: None Psych: Depression, Anxiety, Panic attacks Musculoskeletal: Osteoarthritis Derm: None - Past Surgical History Past Surgical History: Yes General: Appendectomy Ortho: Arthroscopic surgery /SIGNALS COLLECTOR/ANALYST: Dilation and currettage, Tubal ligation - Present Medications Home Medications: Ambulatory Orders Medication Instructions Recorded Confirmed HYDROcod/ACETAM 5/325 [Vicodin 1 - 2 ea PO Q6H PRN 02/05/13 07/06/18 5/325] Levothyroxine [Synthroid] 125 mcg PO QDAC 02/05/13 07/06/18 traZODone [Desyrel] 200 mg PO DAILY PM 10/24/13 07/06/18 Aspirin 325 mg PO DAILY 11/15/13 07/06/18 Morphine ER [Ms Contin] 60 mg PO Q8H 11/16/13 07/06/18 Ondansetron [Zofran] 4 mg PO Q6H PRN #10 tablet 01/02/14 07/06/18 Famotidine [Pepcid] 20 mg PO ONCE #30 tablet 07/06/18 Lisinopril 10 mg PO DAILY #20 tablet 07/06/18 Lorazepam [Ativan] 1 mg PO Q8H PRN #12 tablet 07/06/18 Sulfamethoxazole/Trimethoprim 1 each PO BID #14 tablet 12/21/18 [Sulfamethoxazole-Tmp Ds Tablet] - Allergies Allergies/Adverse Reactions: Allergies Allergy/AdvReac Type Severity Reaction Status Date / Time naproxen [From Naprosyn] Allergy Mild Unknown Verified 12/21/18 18:38 - Social History Does the pt smoke?: No Smoking Status: Never smoker Does the pt drink ETOH?: No Does the pt have substance abuse?: No - Immunizations Immunizations are current?: Yes - POLST Patient has POLST: Yes POLST Status: DNR PD ED PE NORMAL - Vitals Vital signs reviewed: Yes (normal ) - General General: Alert and oriented X 3, No acute distress, Well developed/nourished, Other (slight speech latency is evident and rescued by daughter. ) - HEENT HEENT: Atraumatic, PERRL, EOMI - Neck Neck: Supple, no meningeal sign - Cardiac Cardiac: RRR, No murmur - Respiratory Respiratory: No respiratory distress, Clear bilaterally - Abdomen Abdomen: Soft, Non tender - Back Back: No CVA TTP, No spinal TTP, Other (lower lumbar muscle tenderness) - Derm Derm: Normal color, Warm and dry, No rash - Extremities Extremities: No deformity, No edema - Neuro Neuro: Alert and oriented X 3, sourcing intern 2-12 intact, No motor deficit, No sensory deficit, Normal speech Eye Opening: Spontaneous Motor: Obeys Commands Verbal: Oriented GCS Score: 15 - Psych Psych: Normal mood, Normal affect Results - Vitals Vitals: Vital Signs - 24 hr 12/21/18 12/21/18 12/21/18 18:32 18:37 19:49 Temperature 36.6 C 36.6 C Heart Rate 65 65 48 L Respiratory 18 19 16 Rate Blood Pressure 118/65 118/65 133/59 H O2 Saturation 95 95 95 Oxygen O2 Source Room air - Labs Labs: Laboratory Tests 12/21/18 19:43 Urine Color ORANGE Urine Clarity HAZY Urine pH 5.0 Ur Specific [place] 1.010 Urine Protein >=300 H Urine Glucose (UA) Urine Ketones Urine Occult Blood SMALL H Urine Nitrite POSITIVE H Urine Bilirubin NEGATIVE Urine Urobilinogen Ur Leukocyte Esterase LARGE H Urine RBC 0-5 Urine WBC >25 H Urine WBC Clumps PRESENT Ur Squamous Epith Cells FEW Squamous Urine Bacteria Many H Ur Microscopic Review INDICATED Urine Culture Comments INDICATED PD MEDICAL DECISION MAKING - ED course Complexity details: considered differential, d/w patient, d/w family ED course: 68-year-old female with comorbidities and a urinary tract infection is administered Rocephin IM and will place her on some . Her urine did make the great for culture. Departure - Departure Disposition: 01 Home, Self Care Clinical Impression: Urinary tract infection Qualifiers: Urinary tract infection type: acute cystitis Hematuria presence: without hematuria Qualified Code(s): N30.00 - Acute cystitis without hematuria Condition: Stable Instructions: ED UTI Cystitis Female Follow-Up: Madeline Cramer MD [Primary Care Provider] - Prescriptions: Sulfamethoxazole/Trimethoprim [Sulfamethoxazole-Tmp Ds Tablet] 1 each PO BID #14 tablet
[2018-12-21 20:43] VITALS: BP 108/71
== END 2018-12-21 20:44 | disposition home or self-care (01) ==
LOC: ED 18:18
DX: N30.00 Acute cystitis without hematuria (principal); I10 Essential (primary) hypertension; Z86.73 Personal history of transient ischemic attack (TIA), and cerebral infarction without residual deficits; Z79.82 Long term (current) use of aspirin; Z66 Do not resuscitate
CPT/HCPCS: 81001; 81003; 87086; 87181; 96372; 99283

== ENCOUNTER 2019-03-12 12:30 | Outpatient (CLI) | payer MEDICARE | END 2019-03-12 12:31 | disposition critical access hospital (66) | LOC: EMS 12:30 | PROVIDERS: ATTEND Surgery | DX: R11.2 Nausea with vomiting, unspecified (principal); R10.30 Lower abdominal pain, unspecified | CPT/HCPCS: A0425; A0427 ==

== ENCOUNTER 2019-03-12 12:52 | Emergency (ER) | payer MEDICARE ==
[2019-03-12 13:33] LABS: BASOPHILS # (AUTO) 0.1 10^3/uL (0.0-0.1); BASOPHILS % (AUTO) 0.4 %; EOSINOPHILS % (AUTO) 0.1 %; HGB - HEMOGLOBIN 16.3 g/dL (12.0-16.0); LYMPHOCYTES # (AUTO) 1.3 10^3/uL (1.5-3.5); LYMPHOCYTES % (AUTO) 7.2 %; MEAN CORPUSCULAR HEMOGLOBIN 32.1 pg (27.0-31.0); MEAN CORPUSCULAR HGB CONC 33.3 g/dL (32.0-36.0); MEAN CORPUSCULAR VOLUME 96.4 fL (81.0-99.0); MEAN PLATELET VOLUME 9.8 fL (7.9-10.8); MONOCYTES # (AUTO) 0.7 10^3/uL (0.0-1.0); MONOCYTES % (AUTO) 3.8 %; NEUTROPHILS # (AUTO) 16.2 10^3/uL (1.5-6.6); NEUTROPHILS % (AUTO) 88.2 %; PLT - PLATELET COUNT 198 10^3/uL (130-450); RED BLOOD COUNT 5.07 10^6/uL (4.20-5.40); RED CELL DISTRIBUTION WIDTH 13.2 % (12.0-15.0); WHITE BLOOD COUNT 18.4 x10^3/uL (4.8-10.8)
[2019-03-12] MEDS ORDERED: FAMOTIDINE 20 MG/2 ML VIAL IVP STA (13:46)
[2019-03-12] MEDS ORDERED: HALOPERIDOL 5 MG/ML VIAL IVP ONE (13:46)
[2019-03-12] MEDS ORDERED: CAPSAICIN 0.025% CREAM 60 GM TUBE TOP STA (13:47)
[2019-03-12 13:49] LABS: ALBUMIN 4.4 g/dL (3.2-5.5); ALBUMIN/GLOBULIN RATIO 1.3 (1.0-2.2); BILIRUBIN,TOTAL 1.1 mg/dL (0.2-1.0); CALCIUM 9.8 mg/dL (8.5-10.3); TOTAL PROTEIN 7.9 g/dL (6.7-8.2)
--- NOTE | 2019-03-12 13:49 | ED Physician Documentation ---
PD HPI NVD - Stated complaint Stated Complaint: N/V - Chief complaint Chief Complaint: Abd Pain - History obtained from History obtained from: Patient, Family - History of Present Illness Timing - onset: How many months ago (several months) Timing - duration: Months Timing - details: Intermittant, Waxing and waning Severity Comments: moderate Associated symptoms: Abdominal pain. No: Fever, Chest pain, Hematemesis, Melena, Hematochezia, Dizzy, Near syncope / syncope, Dysuria, Hematuria, Vaginal bleeding Contributing factors: No: Sick contact, Bad food, Travel, Recent antibiotics, Anticoagulated Improved by: Other (nothing) Worsened by: Eating Similar symptoms before: Other (Patient takes chronic narcotics for fibromyalgia and uses marijuana regularly) Recently seen: Not recently seen Review of Systems Ten Systems: 10 systems reviewed and negative Constitutional: denies: Fever, Chills Cardiac: reports: Reviewed and negative Respiratory: reports: Reviewed and negative GI: reports: Abdominal Pain, Nausea, Vomiting. 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 : None HEENT: None Psych: Depression, Anxiety, Panic attacks Musculoskeletal: Osteoarthritis Derm: None - Past Surgical History Past Surgical History: Yes General: Appendectomy Ortho: Arthroscopic surgery /APPLIANCE REPAIRER: Dilation and currettage, Tubal ligation - Present Medications Home Medications: Ambulatory Orders Medication Instructions Recorded Confirmed HYDROcod/ACETAM 5/325 [Vicodin 1 - 2 ea PO Q6H PRN 02/05/13 07/06/18 5/325] Levothyroxine [Synthroid] 125 mcg PO QDAC 02/05/13 07/06/18 traZODone [Desyrel] 200 mg PO DAILY PM 10/24/13 07/06/18 RX: Aspirin 325 mg PO DAILY 11/15/13 07/06/18 Morphine ER [Ms Contin] 60 mg PO Q8H 11/16/13 07/06/18 Ondansetron [Zofran] 4 mg PO Q6H PRN #10 tablet 01/02/14 07/06/18 Lorazepam [Ativan] 1 mg PO Q8H PRN #12 tablet 07/06/18 RX: Famotidine [Pepcid] 20 mg PO ONCE #30 tablet 07/06/18 RX: Lisinopril 10 mg PO DAILY #20 tablet 07/06/18 Promethazine [Phenergan] 25 - 50 mg PO Q6H PRN #10 tab 03/12/19 - Allergies Allergies/Adverse Reactions: Allergies Allergy/AdvReac Type Severity Reaction Status Date / Time naproxen [From Naprosyn] Allergy Mild Unknown Verified 03/12/19 12:59 - Social History Does the pt smoke?: No Smoking Status: Never smoker Does the pt drink ETOH?: No Does the pt have substance abuse?: No - Immunizations Immunizations are current?: Yes - POLST Patient has POLST: Yes POLST Status: DNR PD ED PE NORMAL - Vitals Vital signs reviewed: Yes - General General: Alert and oriented X 3, Well developed/nourished, Other (mild distress, nausea) - HEENT HEENT: Atraumatic, Moist mucous membranes, Pharynx benign - Neck Neck: Supple, no meningeal sign, No JVD - Cardiac Cardiac: RRR, No murmur, No gallop, No rub - Respiratory Respiratory: No respiratory distress, Clear bilaterally - Abdomen Abdomen: Soft, Non distended, Other (diffuse mild tenderness, no guarding or rebound ) - Female Female : Deferred - Rectal Rectal: Deferred - Back Back: No CVA TTP - Derm Derm: Normal color, Warm and dry, No rash - Extremities Extremities: No deformity, No edema - Neuro Neuro: Alert and oriented X 3 Eye Opening: Spontaneous Motor: Obeys Commands Verbal: Oriented GCS Score: 15 - Psych Psych: Normal mood, Normal affect (animated) Results - Vitals Vitals: Vital Signs - 24 hr 03/12/19 16:51 Temperature 36.8 C Heart Rate 58 L Respiratory 20 Rate Blood Pressure 163/99 H O2 Saturation 97 Oxygen O2 Source Room air - Labs Labs: Laboratory Tests 03/12/19 03/12/19 03/12/19 13:28 13:28 14:47 WBC 18.4 H RBC 5.07 Hgb 16.3 H Hct 48.9 H MCV 96.4 MCH 32.1 H MCHC 33.3 RDW 13.2 Plt Count 198 MPV 9.8 Neut # (Auto) 16.2 H Lymph # (Auto) 1.3 L [place] # (Auto) 0.7 Eos # (Auto) 0.0 Baso # (Auto) 0.1 Absolute Nucleated RBC 0.00 Nucleated RBC % 0.0 Sodium 142 Potassium 3.6 Chloride 101 Carbon Dioxide 23 Anion Gap 18.0 H BUN 13 Creatinine 1.0 Estimated GFR (MDRD) 55 L Glucose 159 H Calcium 9.8 Total Bilirubin 1.1 H AST 26 ALT 13 Alkaline Phosphatase 63 Total Protein 7.9 Albumin 4.4 Globulin 3.5 Albumin/Globulin Ratio 1.3 Lipase 41 Urine Color YELLOW Urine Clarity HAZY Urine pH 5.0 Ur Specific [place] >=1.030 H Urine Protein 100 H Urine Glucose (UA) NEGATIVE Urine Ketones 15 H Urine Occult Blood NEGATIVE Urine Nitrite NEGATIVE Urine Bilirubin NEGATIVE Urine Urobilinogen 0.2 (NORMAL) Ur Leukocyte Esterase NEGATIVE Urine RBC 0-5 Urine WBC 0-3 Ur Squamous Epith Cells MANY Squamous H Urine Crystals 3-5 Calcium Oxalate Urine Bacteria Many H Urine Mucus Few Strands Ur Microscopic Review INDICATED Urine Culture Comments NOT INDICATED UA shows RBCs and some ketones. neg nitrites or LE thus suspect contaminated sample. Moderate leukocytosis with elevated H&H likely due to bladder vs kidney cancer - Rads (name of study) CT abd/pelvis with contrast Radiology: Final report received (CT shows likely bladder mass, suspicious for malignancy. no other acute abnormality) PD MEDICAL DECISION MAKING - ED course Complexity details: reviewed results, re-evaluated patient, considered differential, d/w patient, d/w family ED course: ddx- gastritis, pancreatitis, cannabinoid hyperemesis, cyclic vomiting, gastr oparesis, hepatitis, cholecystitis, nonspecific abdominal pain 68 y/o F with abdominal pain, nausea and vomiting ongoing for several montsh presents today for worsening symptoms. Taking antiemetics without relief. No fever. Pt does use marijuana regularly. She is nauseous on exam. Her abdomen is benign but given leukocytosis and persistent nausea obtained Ct which shows a bladder mass suggestive of malignancy but no other acute disease. Pt given further antiemetics with improvement and is tolerating PO Discussed these results with pt and advised urgent f/u with PCP for further diagnostic evaluation of this bladder mass and for management of her symptoms. Given return precautions. Pt is stable for outpt f/u Departure - Departure Disposition: 01 Home, Self Care Clinical Impression: Mass of bladder Condition: Fair Record reviewed to determine appropriate education?: Yes Follow-Up: Madeline Cramer MD [Primary Care Provider] - Within 3 Days Prescriptions: Promethazine [Phenergan] 25 - 50 mg PO Q6H PRN #10 tab PRN Reason: Nausea / Vomiting Comments: Your CT scan today was suggestive of bladder cancer. This may be causing your pain but is less likely to be causing your nausea symptoms. Regardless you need to contact your primary care doctor tomorrow to discuss these results and make a plan for follow up and a biopsy of this mass. You can take phenergan or zofran as needed for nausea. Take your pain medicine as needed. Return to the ED if fever or severe pain or inability to tolerate oral fluids. Discharge Date/Time: 03/12/19 17:01
[2019-03-12 14:56] LABS: BILIRUBIN,URINE NEGATIVE (NEGATIVE); GLUCOSE, URINE (UA) NEGATIVE (NEGATIVE); KETONES,URINE (UA) 15 mg/dL (NEGATIVE); LEUKOCYTE ESTERASE, URINE NEGATIVE (NEGATIVE); NITRITE,URINE NEGATIVE (NEGATIVE); OCCULT BLOOD,URINE NEGATIVE (NEGATIVE); PROTEIN,URINE 100 mg/dL (NEGATIVE); UROBILINOGEN,URINE 0.2 (NORMAL) E.U./dL (NORMAL)
[2019-03-12 15:07] LABS: CLARITY,URINE HAZY (CLEAR)
[2019-03-12] MEDS ORDERED: PROMETHAZINE INJ 25 MG in SODIUM CHLORIDE 0.9% 50 ML IV STA (15:12)
[2019-03-12] MEDS ORDERED: IOVERSOL 320 100 ML VIAL IVP ONE ×2 (15:26→15:48)
[2019-03-12 15:30] LABS: BACTERIA,URINE Many /HPF (None Seen); CRYSTALS,URINE 3-5 Calcium Oxalate /LPF; MUCUS,URINE Few Strands; RBC,URINE 0-5 /HPF (0-5); SQUAMOUS EPITHELIAL CELL,UR MANY Squamous (<= Few)
--- NOTE | 2019-03-12 15:58 | CT Report ---
Reason: nausea, vomiting abdominal pain diffusely Procedure Date: 03/12/2019 Accession Number: [id number] / [id number] Procedure: CT - Abdomen/Pelvis W CPT Code: FULL RESULT: EXAM: CT ABDOMEN AND PELVIS EXAM DATE: 03/12/2019 03:35 PM. CLINICAL HISTORY: Nausea, vomiting abdominal pain diffusely. COMPARISONS: CHEST ANGIO 05/18/2017 12:56 PM. TECHNIQUE: Routine helical CT imaging was performed through the abdomen and pelvis. IV contrast: Optiray 320 100 mL. Enteric contrast: No. Reconstructions: Coronal and sagittal. In accordance with CT protocol optimization, one or more of the following dose reduction techniques were utilized for this exam: automated exposure control, adjustment of mA and/or KV based on patient size, or use of iterative reconstructive technique. FINDINGS: Lung Bases: Unremarkable. Liver: Normal. No masses. Gallbladder/Bile Ducts: Unremarkable. Spleen: Normal. Pancreas: Normal. Adrenal Glands: There is a non-characterized 1.6 x 1.3 cm left adrenal nodule, partially imaged on 2017 CT. Right adrenal gland is unremarkable. Kidneys: In the region of the right renal collecting system, the expected right renal pelvis is a 3.0 x 3.9 cm soft tissue density mass, see image 36 series 5 and image 40 series 3. There is no surrounding hydronephrosis. Nonobstructing calculi are seen in the lower pole of the right kidney. With the exception of bilateral renal hypodensities which are too small to characterize, left kidney is unremarkable. Peritoneal Cavity/Bowel: There is no bowel obstruction. There is no free fluid or free air. The appendix is not definitely visualized. No inflammation specifically centered on the cecum. Pelvic Organs: Normal. The bladder and visualized pelvic organs are within normal limits. Vasculature: No aneurysms or other significant abnormality. Bones: No aggressive osseous lesions. Other: None. IMPRESSION: Right renal pelvis mass, suspicious for malignancy. [facility] The call report notification system was initiated by Dr. Terry Aguilar at 03:57 PM on 03/12/2019. ADDENDUM: 03/12/19 16:05 The above call report findings were discussed with [place] by Dr. Terry Aguilar at 04:05 PM on 03/12/2019.
[2019-03-12] MEDS ORDERED: LORazepam 1 MG TABLET PO STA (16:29)
[2019-03-12 16:51] VITALS: BP 163/99
== END 2019-03-12 17:01 | disposition home or self-care (01) ==
LOC: ED 12:52
DX: N32.89 Other specified disorders of bladder (principal); R11.2 Nausea with vomiting, unspecified; I10 Essential (primary) hypertension; Z79.82 Long term (current) use of aspirin
CPT/HCPCS: 36415; 74177; 80053; 81001; 83690; 85025; 96365; 96375; 99284; 99285; A9270; J7040; J8499; Q9967; 81003; 87086

== ENCOUNTER 2019-03-15 12:46 | Outpatient (CLI) | payer MEDICARE ==
--- NOTE | 2019-03-16 22:10 | XRAY Report ---
Reason: CLAVICLE PAIN Procedure Date: 03/15/2019 Accession Number: [id number] / [id number] Procedure: XR - Clavicle RT CPT Code: FULL RESULT: EXAM: RIGHT CLAVICLE RADIOGRAPHY EXAM DATE: 03/15/2019 01:20 PM. CLINICAL HISTORY: CLAVICLE PAIN. COMPARISON: CHEST 2 VIEW 07/06/2018 5:13 PM. TECHNIQUE: 2 views. FINDINGS: Bones: No acute fractures. No suspicious osseous lesions. Joints: Acromioclavicular joint demonstrates moderate osteoarthritis. Sternoclavicular joint is not as well delineated. No subluxations. Soft Tissues: Partially imaged right apex is unremarkable. IMPRESSION: No acute radiographic abnormalities seen. If there is continued concern for mass, contrast-enhanced MRI could be performed for further evaluation. [facility]
== END 2019-03-15 12:47 | disposition home or self-care (01) ==
LOC: DI 12:46
PROVIDERS: ATTEND Internal Medicine
DX: M25.511 Pain in right shoulder (principal)

== ENCOUNTER 2019-06-29 20:07 | Outpatient (CLI) | payer MEDICARE | END 2019-06-29 20:08 | disposition critical access hospital (66) | LOC: EMS 20:07 | PROVIDERS: ATTEND Surgery | DX: R11.0 Nausea (principal); R19.7 Diarrhea, unspecified | CPT/HCPCS: A0425; A0429 ==

== ENCOUNTER 2019-06-29 20:28 | Emergency (ER) | payer MEDICARE ==
--- NOTE | 2019-06-29 20:52 | ED Physician Documentation ---
History of Present Illness - Stated complaint Stated Complaint: WITHDRAWL FROM PAIN MEDS - Chief complaint Chief Complaint: General - History obtained from History obtained from: Patient - History of Present Illness Timing: Yesterday Improved by: nothing Worsened by: no exacerbating factors - Additonal information Additional information: patient has been taking morphine sulfate ER 30mg BID chronically, along with 10mg/325mg hydrocodone BID PRN. She says that she went to her PMD yesterday and was told she could not obtain refills unless she provides urine sample. Patient says she had urinated immediately prior to going to the office and thus was not able to provide the sample. She says that she was denied refills on these prescriptions because she could not provide the sample. Last dose of morphine was yesterday and she took last dose of the hydrocodone earlier today. She c/o withdrawal symptoms, manifest as generalized headache, cold sweats, generalized muscle aching and stiffness, diarrhea, restlessness Review of Systems Constitutional: reports: Chills, Myalgias, Sweats. denies: Fever Cardiac: reports: Reviewed and negative Respiratory: reports: Reviewed and negative GI: reports: Nausea, Diarrhea. 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 : None HEENT: None Psych: Depression, Anxiety, Panic attacks Musculoskeletal: Osteoarthritis Derm: None - Past Surgical History Past Surgical History: Yes General: Appendectomy Ortho: Arthroscopic surgery /LIFT BUILDER WHOLE: Dilation and currettage, Tubal ligation - Present Medications Home Medications: Ambulatory Orders Medication Instructions Recorded Confirmed HYDROcod/ACETAM 5/325 [Vicodin 1 - 2 ea PO Q6H PRN 02/05/13 07/06/18 5/325] Levothyroxine [Synthroid] 125 mcg PO QDAC 02/05/13 07/06/18 traZODone [Desyrel] 200 mg PO DAILY PM 10/24/13 07/06/18 Aspirin 325 mg PO DAILY 11/15/13 07/06/18 Morphine ER [Ms Contin] 60 mg PO Q8H 11/16/13 07/06/18 Ondansetron [Zofran] 4 mg PO Q6H PRN #10 tablet 01/02/14 07/06/18 Famotidine [Pepcid] 20 mg PO ONCE #30 tablet 07/06/18 Lisinopril 10 mg PO DAILY #20 tablet 07/06/18 Lorazepam [Ativan] 1 mg PO Q8H PRN #12 tablet 07/06/18 Promethazine [Phenergan] 25 - 50 mg PO Q6H PRN #10 tab 03/12/19 Hydrocodone/Acetaminophen 1 - 2 each PO BID #8 tablet 06/29/19 [Hydrocodon-Acetaminophen 5-325] Morphine ER 30 mg PO Q12H #4 tablet 06/29/19 - Allergies Allergies/Adverse Reactions: Allergies Allergy/AdvReac Type Severity Reaction Status Date / Time naproxen [From Naprosyn] Allergy Mild Unknown Verified 06/29/19 20:37 - Social History Does the pt smoke?: No Smoking Status: Never smoker Does the pt drink ETOH?: No Does the pt have substance abuse?: No - Immunizations Immunizations are current?: Yes - POLST Patient has POLST: Yes POLST Status: DNR PD ED PE NORMAL - Vitals Vital signs reviewed: Yes - General General: Alert and oriented X 3, Well developed/nourished, Other (appears mildly anxious) - HEENT HEENT: PERRL, EOMI, Moist mucous membranes - Neck Neck: Supple, no meningeal sign - Cardiac Cardiac: RRR, No murmur - Respiratory Respiratory: No respiratory distress, Clear bilaterally - Abdomen Abdomen: Soft, Non tender - Derm Derm: Normal color, Warm and dry Results - Vitals Vitals: Vital Signs - 24 hr 06/29/19 06/29/19 20:33 21:32 Temperature 37.3 C 36.8 C Heart Rate 67 80 Respiratory 16 16 Rate Blood Pressure 185/103 H 164/82 H O2 Saturation 98 99 Oxygen O2 Source Room air PD MEDICAL DECISION MAKING - ED course Complexity details: reviewed old records, reviewed results, re-evaluated patient, considered differential, d/w patient ED course: ALEX reflects regular prescriptions for the medications and doses she reports, and these appear to be prescribed by same physician group. Looking at rebeca latisha/timing of previous prescriptions, she would be due for refill at about this time. Given a dose of morphine sulfate ER 30mg in ED as well as take-home 5/325mg hydrocodone/acetaminophen, and provided prescriptions for these medications (2 day supply). She understands that she needs to contact PMD on Monday. I do not see an ED visit pattern s/o drug-seeking behavior. Departure - Departure Disposition: Home, Self Care Clinical Impression: Narcotic withdrawal Condition: Good Instructions: ED Withdrawal Narcotic Follow-Up: Madeline Cramer MD [Primary Care Provider] - (Call Monday to arrange for immediate appointment) Prescriptions: Hydrocodone/Acetaminophen [Hydrocodon-Acetaminophen 5-325] 1 - 2 each PO BID #8 tablet Morphine ER 30 mg PO Q12H #4 tablet Discharge Date/Time: 06/29/19 21:32
[2019-06-29] MEDS ORDERED: MORPHINE ER 15 MG TABLET PO STA (21:09)
[2019-06-29] MEDS ORDERED: HYDROcod/ACET 5/325 Prepack 4 PO STA (21:10)
[2019-06-29 21:33] VITALS: BP 164/82
== END 2019-06-29 21:32 | disposition home or self-care (01) ==
LOC: EDUNIT# → ED 20:28
DX: F11.23 Opioid dependence with withdrawal (principal); I10 Essential (primary) hypertension; Z79.82 Long term (current) use of aspirin; Z66 Do not resuscitate
CPT/HCPCS: 99283; 99284; A9270

== ENCOUNTER 2019-07-15 13:04 | Outpatient (CLI) | payer MEDICARE | END 2019-07-15 13:05 | disposition critical access hospital (66) | LOC: EMS 13:04 | PROVIDERS: ATTEND Surgery | DX: R41.0 Disorientation, unspecified (principal); R53.83 Other fatigue; R51 Headache; R11.2 Nausea with vomiting, unspecified | CPT/HCPCS: A0425; A0427 ==

== ENCOUNTER 2019-07-15 13:24 | Emergency (ER) | payer MEDICARE ==
--- NOTE | 2019-07-15 13:43 | ED Physician Documentation ---
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 Her daughter called the ambulance today because over the past 2 days she is been very fatigued and sleeping more than usual. She seems to have increasing confusion that was worse today and so the daughter called the ambulance. For the past 2 days the patient has been in bed. The daughter has had to assist her to a bedside commode. She has not really wanted to eat anything. She is been dropping things and seemed more confused. She is complaining of her chronic headache but no other complaints of pain. Last night she had some nausea was vomiting some bile. She was given Zofran in route. Blood pressure was 160s in route and Accu-Chek was in the 160s. Patient denies any other acute symptoms of coughing, dysuria. She has chronic pain and takes 30 mg extended release morphine 3 times a day in addition to hydrocodone 10 mg as needed. She also takes clonazepam, Prozac, trazodone. Daughter also admits that they smoke marijuana together. The daughter says that about a month and a half ago her mom had an episode that she thought might of been a stroke but she did not bring her in at that time in fact she had symptoms of confusion and being very sleepy that seemed to get better after she thought she had the stroke and so the daughter thought it might of "reset things". She is acting now very similar to what she acted like prior to a month and a half ago. The daughter is adamant that she could not have any access or taken additional medications at home because she monitors the amount that is left in the pill bottles. Review of Systems Constitutional: denies: Fever Ears: denies: Ear pain Nose: denies: Congestion Throat: denies: Sore throat PD PAST MEDICAL HISTORY - Present Medications Home Medications: Ambulatory Orders Medication Instructions Recorded Confirmed HYDROcod/ACETAM 5/325 [Vicodin 1 - 2 ea PO Q6H PRN 02/05/13 07/06/18 5/325] Levothyroxine [Synthroid] 125 mcg PO QDAC 02/05/13 07/06/18 traZODone [Desyrel] 200 mg PO DAILY PM 10/24/13 07/06/18 Aspirin 325 mg PO DAILY 11/15/13 07/06/18 Morphine ER [Ms Contin] 60 mg PO Q8H 11/16/13 07/06/18 Ondansetron [Zofran] 4 mg PO Q6H PRN #10 tablet 01/02/14 07/06/18 Famotidine [Pepcid] 20 mg PO ONCE #30 tablet 07/06/18 Lisinopril 10 mg PO DAILY #20 tablet 07/06/18 Lorazepam [Ativan] 1 mg PO Q8H PRN #12 tablet 07/06/18 Promethazine [Phenergan] 25 - 50 mg PO Q6H PRN #10 tab 03/12/19 Hydrocodone/Acetaminophen 1 - 2 each PO BID #8 tablet 06/29/19 [Hydrocodon-Acetaminophen 5-325] Morphine ER 30 mg PO Q12H #4 tablet 06/29/19 - Allergies Allergies/Adverse Reactions: Allergies Allergy/AdvReac Type Severity Reaction Status Date / Time naproxen [From Naprosyn] Allergy Mild Unknown Verified 07/15/19 13:27 Results - Vitals Vitals: Vital Signs - 24 hr 07/15/19 07/15/19 07/15/19 13:28 15:50 17:00 Temperature 36.7 C Heart Rate 65 60 60 Respiratory 18 12 16 Rate Blood Pressure 191/99 H 191/106 H 188/95 H O2 Saturation 98 98 99 Oxygen O2 Source Room air - EKG (time done) 1343 Rate: Rate (enter#) (65) Rhythm: NSR Intervals: No: Wide QRS Ischemia: Non specific changes 1756 Rate: Rate (enter#) (63) Rhythm: NSR Intervals: No: Wide QRS Ischemia: Normal ST segments Compare to prior EKG: Unchanged from prior EKG - Labs Labs: Laboratory Tests 07/15/19 07/15/19 07/15/19 14:21 14:21 14:21 WBC 18.3 H RBC 4.80 Hgb 15.5 Hct 47.2 H MCV 98.3 MCH 32.3 H MCHC 32.8 RDW 13.0 Plt Count 178 MPV 10.1 Neut # (Auto) 14.3 H Lymph # (Auto) 2.3 [place] # (Auto) 1.4 H Eos # (Auto) 0.0 Baso # (Auto) 0.1 Absolute Nucleated RBC 0.00 Nucleated RBC % 0.0 PT 12.9 H INR 1.1 Sodium 141 Potassium 3.4 L Chloride 99 L Carbon Dioxide 28 Anion Gap 14.0 H BUN 14 Creatinine 0.9 Estimated GFR (MDRD) 62 L Glucose 138 H Lactic Acid Calcium 9.6 Total Bilirubin 0.9 AST 31 ALT 12 Alkaline Phosphatase 55 Troponin I High Sens Total Protein 7.9 Albumin 4.2 Globulin 3.7 Albumin/Globulin Ratio 1.1 Lipase 28 Urine Color Urine Clarity Urine pH Ur Specific Jackson Urine Protein Urine Glucose (UA) Urine Ketones Urine Occult Blood Urine Nitrite Urine Bilirubin Urine Urobilinogen Ur Leukocyte Esterase Ur Microscopic Review Urine Culture Comments Urine Opiates Screen Ur Oxycodone Screen Urine Methadone Screen Ur Propoxyphene Screen Ur Barbiturates Screen Ur Tricyclics Screen Ur Phencyclidine Scrn Ur Amphetamine Screen U Methamphetamines Scrn U Benzodiazepines Scrn Urine Cocaine Screen U Cannabinoids Screen Ethyl Alcohol < 5.0 07/15/19 07/15/19 07/15/19 14:21 14:21 16:00 WBC RBC Hgb Hct MCV MCH MCHC RDW Plt Count MPV Neut # (Auto) Lymph # (Auto) Neosho # (Auto) Eos # (Auto) Baso # (Auto) Absolute Nucleated RBC Nucleated RBC % PT INR Sodium Potassium Chloride Carbon Dioxide Anion Gap BUN Creatinine Estimated GFR (MDRD) Glucose Lactic Acid 2.3 H Calcium Total Bilirubin AST ALT Alkaline Phosphatase Troponin I High Sens 22.3 H* Total Protein Albumin Globulin Albumin/Globulin Ratio Lipase Urine Color YELLOW Urine Clarity CLEAR Urine pH 5.5 Ur Specific Jackson 1.025 Urine Protein NEGATIVE Urine Glucose (UA) NEGATIVE Urine Ketones TRACE Urine Occult Blood TRACE-INTA Urine Nitrite NEGATIVE Urine Bilirubin NEGATIVE Urine Urobilinogen 0.2 (NORMAL) Ur Leukocyte Esterase NEGATIVE Ur Microscopic Review NOT INDICATED Urine Culture Comments NOT INDICATED Urine Opiates Screen POSITIVE H Ur Oxycodone Screen NEGATIVE Urine Methadone Screen NEGATIVE Ur Propoxyphene Screen NEGATIVE Ur Barbiturates Screen NEGATIVE Ur Tricyclics Screen NEGATIVE Ur Phencyclidine Scrn NEGATIVE Ur Amphetamine Screen NEGATIVE U Methamphetamines Scrn NEGATIVE U Benzodiazepines Scrn NEGATIVE Urine Cocaine Screen NEGATIVE U Cannabinoids Screen POSITIVE H Ethyl Alcohol 07/15/19 07/15/19 17:55 18:20 WBC RBC Hgb Hct MCV MCH MCHC RDW Plt Count MPV Neut # (Auto) Lymph # (Auto) [place] # (Auto) Eos # (Auto) Baso # (Auto) Absolute Nucleated RBC Nucleated RBC % PT INR Sodium Potassium Chloride Carbon Dioxide Anion Gap BUN Creatinine Estimated GFR (MDRD) Glucose Lactic Acid 1.6 Calcium Total Bilirubin AST ALT Alkaline Phosphatase Troponin I High Sens 21.8 H* Total Protein Albumin Globulin Albumin/Globulin Ratio Lipase Urine Color Urine Clarity Urine pH Ur Specific Jackson Urine Protein Urine Glucose (UA) Urine Ketones Urine Occult Blood Urine Nitrite Urine Bilirubin Urine Urobilinogen Ur Leukocyte Esterase Ur Microscopic Review Urine Culture Comments Urine Opiates Screen Ur Oxycodone Screen Urine Methadone Screen Ur Propoxyphene Screen Ur Barbiturates Screen Ur Tricyclics Screen Ur Phencyclidine Scrn Ur Amphetamine Screen U Methamphetamines Scrn U Benzodiazepines Scrn Urine Cocaine Screen U Cannabinoids Screen Ethyl Alcohol - Rads (name of study) CXR Radiology: EMP read contemporaneously (Neg acute), See rad report CT head Radiology: See rad report (old infarct) CT abd/pelvis Radiology: See rad report PD MEDICAL DECISION MAKING - ED course Complexity details: reviewed results, d/w patient ED course: Patient's white blood cell count was elevated at 18,000. Liver enzymes were normal. Her lactic was up to 2.3 and her troponin was up a little bit at 22. Head CT did not show any acute stroke. Her chest x-ray was clear. The family stopped me and said that she was feeling nauseous so she was given Zofran but they stopped me again and said she was still feeling nauseous so she was given Phenergan 12.5 mg IV. When I went back into reevaluate her and discuss the labs and the need to stay for repeat troponin she was more awake however she was complaining of some abdominal pain. She was tender in the upper abdomen and with the elevated white count and lactic I elected to go ahead and do a CT abdomen pelvis. She has been given a liter of fluids. 184: The repeat troponin wasUnchanged. Patient still complains of feeling nauseous and having abdominal pain but the daughter pipes and that this is been an ongoing issue as well. She has typically Phenergan at home and Zofran. They have been recommended to have endoscopy and colonoscopy but she has not gone yet because they have not been able to arrange rides. The patient does not drive and the patient's daughter is just getting her furniture delivery driver's license. In the meantime I do not see any indication that she needs to be acutely admitted to the hospital. I do have a repeat lactate pending but with completely negative work-up at this point I do not expect any significant change in that or change in my management. The daughter feels comfortable taking her home. We have talked about following through with the endoscopy and colonoscopy. Also obtaining a neurology consult. I also mentioned that I cannot help but wonder if she is overmedicated with the extended release morphine, hydrocodone and Klonopin that could be causing her diminished mental status. Departure - Departure Disposition: 01 Home, Self Care Clinical Impression: Nausea Altered mental status Qualifiers: Altered mental status type: unspecified Qualified Code(s): R41.82 - Altered mental status, unspecified Abdominal pain Qualifiers: Abdominal location: generalized Qualified Code(s): R10.84 - Generalized abdominal pain Condition: Good Instructions: ED Abdominal Pain Unkn Cause Follow-Up: Madeline Cramer MD [Primary Care Provider] - Comments: Take your Zofran and/or Phenergan at home for continued nausea. Follow through with the colonoscopy and endoscopy scheduling as it has been recommended to you. Consider consultation with a neurologist regarding the tremors and mental status changes that have been observed at home. Return to the emergency department if symptoms worsen or other problems arise.
[2019-07-15] MEDS ORDERED: SODIUM CHLORIDE 0.9% 1,000 ML IV ONE ×3 (13:44→17:15)
[2019-07-15 14:28] LABS: BASOPHILS # (AUTO) 0.1 10^3/uL (0.0-0.1); BASOPHILS % (AUTO) 0.4 %; EOSINOPHILS % (AUTO) 0.1 %; HGB - HEMOGLOBIN 15.5 g/dL (12.0-16.0); LYMPHOCYTES # (AUTO) 2.3 10^3/uL (1.5-3.5); LYMPHOCYTES % (AUTO) 12.7 %; MEAN CORPUSCULAR HEMOGLOBIN 32.3 pg (27.0-31.0); MEAN CORPUSCULAR HGB CONC 32.8 g/dL (32.0-36.0); MEAN CORPUSCULAR VOLUME 98.3 fL (81.0-99.0); MEAN PLATELET VOLUME 10.1 fL (7.9-10.8); MONOCYTES # (AUTO) 1.4 10^3/uL (0.0-1.0); MONOCYTES % (AUTO) 7.8 %; NEUTROPHILS # (AUTO) 14.3 10^3/uL (1.5-6.6); NEUTROPHILS % (AUTO) 78.2 %; PLT - PLATELET COUNT 178 10^3/uL (130-450); WHITE BLOOD COUNT 18.3 x10^3/uL (4.8-10.8)
[2019-07-15 14:43] LABS: ALBUMIN 4.2 g/dL (3.2-5.5); ALBUMIN/GLOBULIN RATIO 1.1 (1.0-2.2); ALKALINE PHOSPHATASE 55 IU/L (42-121); ALT ALANINE AMINOTRANSFERASE 12 IU/L (10-60); AST ASPARTATE AMINOTRANSFERASE 31 IU/L (10-42); BILIRUBIN,TOTAL 0.9 mg/dL (0.2-1.0); BUN - BLOOD UREA NITROGEN 14 mg/dL (6-20); CALCIUM 9.6 mg/dL (8.5-10.3); CARBON DIOXIDE - CO2 28 mmol/L (21-32); CHLORIDE 99 mmol/L (101-111); CREATININE 0.9 mg/dL (0.4-1.0); GFR - MDRD 62 (>89); GLUCOSE 138 mg/dL (70-100); LIPASE 28 U/L (22-51); SODIUM 141 mmol/L (135-145); TOTAL PROTEIN 7.9 g/dL (6.7-8.2)
--- NOTE | 2019-07-15 14:44 | CT Report ---
Reason: confusion Procedure Date: 07/15/2019 Accession Number: [id number] / [id number] Procedure: CT - HEAD WO CPT Code: Final Report FULL RESULT: EXAM: CT HEAD EXAM DATE: 07/15/2019 02:04 PM. CLINICAL HISTORY: Confusion. COMPARISON: HEAD W/O 05/18/2017 8:05 AM. TECHNIQUE: Multiaxial CT images were obtained from the foramen magnum to the vertex. Reformats: Sagittal and coronal. IV contrast: None. In accordance with CT protocol optimization, one or more of the following dose reduction techniques were utilized for this exam: automated exposure control, adjustment of mA and/or KV based on patient size, or use of iterative reconstructive technique. FINDINGS: Parenchyma: No intraparenchymal hemorrhage. No evidence of mass, midline shift, or CT findings of acute infarction. Lubin-white differentiation is distinct. Focal areas of chronic encephalomalacia involving the left frontal and left greater than right occipital lobes are similar to previous. Chronic microangiopathic vascular change in the periventricular white matter also noted. Extraaxial Spaces: Normal for age. No acute subdural or epidural collections identified. Ventricles: Normal in size and position. Sinuses and Orbits: Imaged paranasal sinuses, orbits, and mastoids show no significant abnormality. Bones: No evidence of fracture or calvarial defect. Other: No acute findings compared with 05/18/2017 IMPRESSION: Stable chronic changes compared with 05/18/2017. No findings of an acute intracranial process. RADIA
[2019-07-15 14:45] LABS: INR 1.1 (0.8-1.2); PT - PROTHROMBIN TIME 12.9 secs (9.9-12.6)
--- NOTE | 2019-07-15 14:46 | XRAY Report ---
Reason: chest pain Procedure Date: 07/15/2019 Accession Number: [id number] / [id number] Procedure: XR - Chest 1 View X-Ray CPT Code: 77613 Final Report FULL RESULT: EXAM: CHEST RADIOGRAPHY EXAM DATE: 07/15/2019 02:08 PM. CLINICAL HISTORY: Chest pain. COMPARISON: Chest radiograph from 07/06/2018, 05/18/2017. TECHNIQUE: 1 view. FINDINGS: Lungs/Pleura: No focal airspace opacities. No pleural effusion or pneumothorax. Mediastinum: Cardiomediastinal silhouette is within normal limits. Pulmonary vasculature is unremarkable. Other: Severe DJD demonstrated in bilateral glenohumeral joints. IMPRESSION: No acute cardiopulmonary abnormality. RADIA
[2019-07-15 16:04] LABS: MUDS CUTOFF CONCENTRATIONS CUTOFF CONC BELOW:
[2019-07-15 16:07] LABS: BILIRUBIN,URINE NEGATIVE (NEGATIVE); GLUCOSE, URINE (UA) NEGATIVE (NEGATIVE); KETONES,URINE (UA) TRACE mg/dL (NEGATIVE); LEUKOCYTE ESTERASE, URINE NEGATIVE (NEGATIVE); NITRITE,URINE NEGATIVE (NEGATIVE); OCCULT BLOOD,URINE TRACE-INTA (NEGATIVE); PH,URINE 5.5 PH (5.0-7.5); PROTEIN,URINE NEGATIVE (NEGATIVE); UROBILINOGEN,URINE 0.2 (NORMAL) E.U./dL (NORMAL)
[2019-07-15 16:09] LABS: CLARITY,URINE CLEAR (CLEAR)
[2019-07-15 16:17] LABS: AMPHETAMINE SCREEN,URINE NEGATIVE (NEGATIVE); BENZODIAZEPINES SCREEN, URINE NEGATIVE (NEGATIVE); COCAINE SCREEN URINE NEGATIVE (NEGATIVE); METHADONE SCREEN, URINE NEGATIVE (NEGATIVE); METHAMPHETAMINES SCREEN, URINE NEGATIVE (NEGATIVE); OPIATE SCREEN, URINE POSITIVE (NEGATIVE); OXYCODONE SCREEN, URINE NEGATIVE (NEGATIVE); PROPOXYPHENE SCREEN, URINE NEGATIVE (NEGATIVE); TRICYCLIC ANTIDEPRESSANT,URINE NEGATIVE (NEGATIVE)
[2019-07-15] MEDS ORDERED: ONDANSETRON 4 MG/2 ML VIAL IVP STA (16:26)
[2019-07-15] MEDS ORDERED: PROMETHAZINE INJ 12.5 MG in SODIUM CHLORIDE 0.9% 50 ML IV STA (17:05)
[2019-07-15] MEDS ORDERED: IOVERSOL 320 100 ML VIAL IVP ONE ×2 (17:27→17:43)
--- NOTE | 2019-07-15 18:18 | CT Report ---
Reason: abdominal pain; vomiting Procedure Date: 07/15/2019 Accession Number: [id number] / [id number] Procedure: CT - Abdomen/Pelvis W CPT Code: Final Report FULL RESULT: EXAM: CT ABDOMEN AND PELVIS EXAM DATE: 07/15/2019 05:42 PM. CLINICAL HISTORY: Abdominal pain; vomiting. COMPARISONS: ABDOMEN/PELVIS W/ 03/12/2019 3:31 PM CHEST ANGIO 05/18/2017 12:56 PM. TECHNIQUE: Routine helical CT imaging was performed through the abdomen and pelvis. IV contrast: OPTI 320 100ML. Enteric contrast: No. Reconstructions: Coronal and sagittal. In accordance with CT protocol optimization, one or more of the following dose reduction techniques were utilized for this exam: automated exposure control, adjustment of mA and/or KV based on patient size, or use of iterative reconstructive technique. FINDINGS: Lung Bases: Unremarkable. Liver: There may be fatty infiltration. Gallbladder/Bile Ducts: Unremarkable. Spleen: Normal. Pancreas: Mild atrophy and fatty replacement. Adrenal Glands: 1.7 cm left adrenal nodule is unchanged, likely an adenoma. Kidneys: Density lesion in the right renal hilum measuring about 3.7 cm is unchanged. There is a cluster of nonobstructing right renal stones inferiorly measuring up to 5 mm, as before. No obstructing stone or hydronephrosis. 14 mm hypoattenuating right renal cortical lesion is unchanged and likely a cyst. 14 mm superior pole left renal lesion is unchanged and likely a cyst. Peritoneal Cavity/Bowel: No bowel dilation or evidence of obstruction. No free fluid, free air or adenopathy. No acute inflammatory process. The appendix is not identified. No evidence of acute appendicitis. Pelvic Organs: The bladder, uterus and adnexa are unremarkable. Vasculature: Mild atherosclerosis. No aortic aneurysm. Bones: Advanced disk degeneration and facet arthrosis in the lumbar spine. Other: None. IMPRESSION: 1. No acute abnormality identified. 2. Unchanged nonobstructing right renal stones. Unchanged high density lesion in the right renal hilum, which may represent a proteinaceous or hemorrhagic parapelvic cyst. Follow-up ultrasound could further assess. 3. Unchanged small left adrenal nodule, favor adenoma. RADIA
[2019-07-15 19:07] VITALS: BP 203/104
== END 2019-07-15 19:33 | disposition home or self-care (01) ==
LOC: EDUNIT# → ED 13:24
DX: R41.82 Altered mental status, unspecified (principal); R11.0 Nausea; R10.84 Generalized abdominal pain; D72.829 Elevated white blood cell count, unspecified; R25.1 Tremor, unspecified; Z86.73 Personal history of transient ischemic attack (TIA), and cerebral infarction without residual deficits; Z79.82 Long term (current) use of aspirin
CPT/HCPCS: 36415; 70450; 71045; 74177; 80053; 81003; 83605; 83690; 84484; 85025; 85610; 87040; 93005; 96361; 96365; 96375; 99284; J7040; Q9967; 80306; 80320; 81001; 87086

== ENCOUNTER 2019-12-20 00:44 | Outpatient (CLI) | payer MEDICARE | END 2019-12-20 00:45 | disposition critical access hospital (66) | LOC: EMS 00:44 | PROVIDERS: ATTEND Surgery | DX: R51 Headache (principal); R11.2 Nausea with vomiting, unspecified; R47.9 Unspecified speech disturbances; R53.1 Weakness | CPT/HCPCS: A0425; A0427 ==

== ENCOUNTER 2019-12-20 01:03 | Emergency (ER) | payer MEDICARE ==
[2019-12-20] MEDS ORDERED: SODIUM CHLORIDE 0.9% 1,000 ML IV ONE (01:22)
[2019-12-20 01:41] LABS: BASOPHILS # (AUTO) 0.1 10^3/uL (0.0-0.1); BASOPHILS % (AUTO) 0.8 %; EOSINOPHILS # (AUTO) 0.3 10^3/uL (0.0-0.7); EOSINOPHILS % (AUTO) 3.2 %; HGB - HEMOGLOBIN 13.7 g/dL (12.0-16.0); LYMPHOCYTES # (AUTO) 2.8 10^3/uL (1.5-3.5); LYMPHOCYTES % (AUTO) 35.4 %; MEAN CORPUSCULAR HEMOGLOBIN 31.8 pg (27.0-31.0); MEAN CORPUSCULAR HGB CONC 32.2 g/dL (32.0-36.0); MEAN CORPUSCULAR VOLUME 98.8 fL (81.0-99.0); MEAN PLATELET VOLUME 9.8 fL (7.9-10.8); MONOCYTES # (AUTO) 0.6 10^3/uL (0.0-1.0); MONOCYTES % (AUTO) 7.9 %; NEUTROPHILS # (AUTO) 4.1 10^3/uL (1.5-6.6); NEUTROPHILS % (AUTO) 52.4 %; PLT - PLATELET COUNT 137 10^3/uL (130-450); RED BLOOD COUNT 4.31 10^6/uL (4.20-5.40); RED CELL DISTRIBUTION WIDTH 13.1 % (12.0-15.0); WHITE BLOOD COUNT 7.8 x10^3/uL (4.8-10.8)
[2019-12-20 01:49] LABS: ALBUMIN 3.5 g/dL (3.2-5.5); ALBUMIN/GLOBULIN RATIO 1.2 (1.0-2.2); ALKALINE PHOSPHATASE 49 IU/L (42-121); ALT ALANINE AMINOTRANSFERASE < 10 IU/L (10-60); AST ASPARTATE AMINOTRANSFERASE 20 IU/L (10-42); BILIRUBIN,TOTAL 0.8 mg/dL (0.2-1.0); BUN - BLOOD UREA NITROGEN 11 mg/dL (6-20); CALCIUM 8.7 mg/dL (8.5-10.3); CARBON DIOXIDE - CO2 23 mmol/L (21-32); CHLORIDE 98 mmol/L (101-111); CREATININE 0.9 mg/dL (0.4-1.0); GLUCOSE 124 mg/dL (70-100); LIPASE 25 U/L (22-51); SODIUM 133 mmol/L (135-145); TOTAL PROTEIN 6.5 g/dL (6.7-8.2)
--- NOTE | 2019-12-20 02:07 | CT Report ---
Reason: LUE weakness, altered mental status Procedure Date: 12/20/2019 Accession Number: [id number] / [id number] Procedure: CT - HEAD WO CPT Code: Final Report FULL RESULT: EXAM: CT HEAD EXAM DATE: 12/20/2019 01:52 AM. CLINICAL HISTORY: LUE weakness, altered mental status. COMPARISON: HEAD W/O 07/15/2019 1:56 PM. TECHNIQUE: Multiaxial CT images were obtained from the foramen magnum to the vertex. Reformats: Sagittal and coronal. IV contrast: None. In accordance with CT protocol optimization, one or more of the following dose reduction techniques were utilized for this exam: automated exposure control, adjustment of mA and/or KV based on patient size, or use of iterative reconstructive technique. FINDINGS: Parenchyma: No intraparenchymal hemorrhage. No evidence of mass, midline shift, or CT findings of acute infarction. Lubin-white differentiation is distinct. Diffuse chronic microangiopathic white matter changes are evident. Stable left frontal and left greater than right occipital cortical infarction. Extraaxial Spaces: Normal for age. No subdural or epidural collections identified. Ventricles: The ventricles and cortical sulci are enlarged, consistent with age-related tissue loss. Sinuses and orbits: Imaged paranasal sinuses, orbits, and mastoids show no significant abnormality. Bones: No evidence of fracture or calvarial defect. Other: None. IMPRESSION: Generalized age-related cortical atrophic changes and chronic ischemic changes without evidence of acute intracranial abnormality. RADIA
[2019-12-20 02:30] LABS: BILIRUBIN,URINE NEGATIVE (NEGATIVE); GLUCOSE, URINE (UA) NEGATIVE (NEGATIVE); KETONES,URINE (UA) NEGATIVE (NEGATIVE); LEUKOCYTE ESTERASE, URINE NEGATIVE (NEGATIVE); NITRITE,URINE NEGATIVE (NEGATIVE); OCCULT BLOOD,URINE NEGATIVE (NEGATIVE); PH,URINE 7.5 PH (5.0-7.5); PROTEIN,URINE NEGATIVE (NEGATIVE); UROBILINOGEN,URINE 0.2 (NORMAL) E.U./dL (NORMAL)
[2019-12-20 02:32] LABS: CLARITY,URINE CLEAR (CLEAR)
[2019-12-20] MEDS ORDERED: KETOROLAC 30 MG/ML VIAL IVP STA (03:06)
--- NOTE | 2019-12-20 03:06 | ED Physician Documentation ---
History of Present Illness - Stated complaint Stated Complaint: STROKE - Chief complaint Chief Complaint: Neuro - History obtained from History obtained from: Patient, EMS - Additonal information Additional information: PT was sent to the ED via EMS by family for apparently "acting differently" and seeming more confused than usual. Pt has a history of dementia, possibly from prior infarcts, per medics. History is given by EMS mainly, as pt is a poor historian and family does not answer calls. The pt has a h/o prior CVA, per medics, with possibly some persistent focal deficit, and lives with one of her children. According to medics, another family member who does not normally live with pt came to visit, and was concerned that the pt may have new or worse symptoms. Medics state they felt the pt may be weaker on the L than the right, but they are not sure if this is new or not. Pt is not sure if she has new weakness or not. She complains of headache on the R. She denies current chest pain, SOB, or abdominal pain. Pt denies nausea currently, but according to medics, family reported some vomiting earlier this week. She is not aware of having had any fevers, and does not currently feel ill. No cough. No visual changes or difficulty speaking or swallowing. Review of Systems Ten Systems: 10 systems reviewed and negative Constitutional: reports: Reviewed and negative Eyes: reports: Reviewed and negative Ears: reports: Reviewed and negative Nose: reports: Reviewed and negative Throat: reports: Reviewed and negative Cardiac: reports: Reviewed and negative Respiratory: reports: Reviewed and negative GI: reports: Reviewed and negative : reports: Reviewed and negative Skin: reports: Reviewed and negative Musculoskeletal: reports: Reviewed and negative Neurologic: reports: Reviewed and negative Psychiatric: reports: Reviewed and negative Endocrine: reports: Reviewed and negative Immunocompromised: reports: Reviewed and negative PD PAST MEDICAL HISTORY - Past Medical History Past Medical History: Yes Cardiovascular: Hypertension, High cholesterol Respiratory: None Neuro: CVA, Headaches Endocrine/Autoimmune: HyPOthyroidism GI: None 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 : None HEENT: None Psych: Depression, Anxiety, Panic attacks Musculoskeletal: Osteoarthritis Derm: None - Past Surgical History Past Surgical History: Yes General: Appendectomy Ortho: Arthroscopic surgery /WIRE WINDING MACHINE OPERATOR: Dilation and currettage, Tubal ligation - Present Medications Home Medications: Ambulatory Orders Medication Instructions Recorded Confirmed HYDROcod/ACETAM 5/325 [Vicodin 1 - 2 ea PO Q6H PRN 02/05/13 12/20/19 5/325] Levothyroxine [Synthroid] 125 mcg PO QDAC 02/05/13 12/20/19 traZODone [Desyrel] 200 mg PO DAILY PM 10/24/13 12/20/19 Aspirin 325 mg PO DAILY 11/15/13 12/20/19 Morphine ER [Ms Contin] 60 mg PO Q8H 11/16/13 12/20/19 Ondansetron [Zofran] 4 mg PO Q6H PRN #10 tablet 01/02/14 12/20/19 Famotidine [Pepcid] 20 mg PO ONCE #30 tablet 07/06/18 12/20/19 Lorazepam [Ativan] 1 mg PO Q8H PRN #12 tablet 07/06/18 12/20/19 lisinopriL [Lisinopril] 10 mg PO DAILY #20 tablet 07/06/18 12/20/19 Promethazine [Phenergan] 25 - 50 mg PO Q6H PRN #10 tab 03/12/19 12/20/19 Hydrocodone/Acetaminophen 1 - 2 each PO BID #8 tablet 06/29/19 12/20/19 [Hydrocodon-Acetaminophen 5-325] Morphine ER 30 mg PO Q12H #4 tablet 06/29/19 12/20/19 - Allergies Allergies/Adverse Reactions: Allergies Allergy/AdvReac Type Severity Reaction Status Date / Time naproxen [From Naprosyn] Allergy Mild Unknown Verified 12/20/19 01:54 - Social History Does the pt smoke?: No Smoking Status: Never smoker Does the pt drink ETOH?: No Does the pt have substance abuse?: No - Immunizations Immunizations are current?: Yes - POLST Patient has POLST: Yes POLST Status: DNR PD ED PE NORMAL - Vitals Vital signs reviewed: Yes - General General: No acute distress, Well developed/nourished - HEENT HEENT: Atraumatic, PERRL, EOMI, Moist mucous membranes - Neck Neck: Supple, no meningeal sign - Cardiac Cardiac: RRR, No murmur, Strong equal pulses - Respiratory Respiratory: No respiratory distress, Clear bilaterally - Abdomen Abdomen: Soft, Non tender, Non distended - Derm Derm: Normal color, Warm and dry, No rash - Extremities Extremities: No deformity - Neuro Neuro: stack matcher 2-12 intact, No sensory deficit, Normal speech, Other (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 Otherwise, strength is 5+ and equal throughout all 4 extremities. The pt is alert, and has clear speech. Word-finding does not seem to be impaired, but she forgets the questions that she has been asked easily. ) - Psych Psych: Normal mood, Normal affect Results - Vitals Vitals: Oxygen O2 Source Room air - EKG (time done) 0242 Rate: Rate (enter#) (47) Rhythm: Sinus bradycardia [place]: Normal Intervals: Normal CO QRS: Low voltage Ischemia: Normal ST segments Compare to prior EKG: Old EKG unavailable - Labs Labs: Laboratory Tests 12/20/19 12/20/19 12/20/19 01:25 01:25 02:20 WBC 7.8 RBC 4.31 Hgb 13.7 Hct 42.6 MCV 98.8 MCH 31.8 H MCHC 32.2 RDW 13.1 Plt Count 137 MPV 9.8 Neut # (Auto) 4.1 Lymph # (Auto) 2.8 [place] # (Auto) 0.6 Eos # (Auto) 0.3 Baso # (Auto) 0.1 Absolute Nucleated RBC 0.00 Nucleated RBC % 0.0 Sodium 133 L Potassium 3.0 L Chloride 98 L Carbon Dioxide 23 Anion Gap 12.0 BUN 11 Creatinine 0.9 Estimated GFR (MDRD) 62 L Glucose 124 H Calcium 8.7 Total Bilirubin 0.8 AST 20 ALT < 10 L Alkaline Phosphatase 49 Total Protein 6.5 L Albumin 3.5 Globulin 3.0 Albumin/Globulin Ratio 1.2 Lipase 25 Urine Color YELLOW Urine Clarity CLEAR Urine pH 7.5 Ur Specific [place] 1.015 Urine Protein NEGATIVE Urine Glucose (UA) NEGATIVE Urine Ketones NEGATIVE Urine Occult Blood NEGATIVE Urine Nitrite NEGATIVE Urine Bilirubin NEGATIVE Urine Urobilinogen 0.2 (NORMAL) Ur Leukocyte Esterase NEGATIVE Ur Microscopic Review NOT INDICATED Urine Culture Comments NOT INDICATED - Rads (name of study) CT head Radiology: Final report received, EMP read indepedently (Age related atrophy and chronic ischemic changes; no acute pathology.), See rad report PD MEDICAL DECISION MAKING - ED course Complexity details: reviewed old records, reviewed results, re-evaluated patient, considered differential, d/w patient ED course: The pt was worked up extensively in the ED with labs, UA, EKG, and head CT. Her labs showed mild decreases in sodium and potassium. Her urinalysis was negative. Her head CT showed changes consistent with prior ischemia and age- related atrophy, but no acute findings. The pt did not demonstrate any nausea or vomiting in the ED. We were finally able to get a hold of the family, and explained to them that the work-up has not revealed anything acute. The pt is already on ASA at home. Family felt comfortable taking the pt home. We have discussed home management of sx, as well as the usual indications for return. Departure - Departure Disposition: 01 Home, Self Care Clinical Impression: Confusion Condition: Stable Instructions: ED Confusion Comments: You have been worked up extensively with labs, EKG, and CT scan of the head. Well there is evidence of multiple old strokes, there is no evidence of a new stroke in the last several days. Your laboratory studies are also unremarkable. Your urinalysis does not show infection. You have a mildly slow heart rate on your EKG, but no sign of heart attack. Most likely, some of the symptoms you have noticed, including the ongoing confusion and the intermittent weakness, are due to damage to the neurons in your brain from your previous strokes. This can sometimes cause a fluctuating pattern of weakness and confusion, depending what part of the brain has been damaged. Please follow-up with your primary care physician to discuss further management of the symptoms. At this time, there is no acute emergent condition. Discharge Date/Time: 12/20/19 04:12
[2019-12-20 04:12] VITALS: BP 162/82
== END 2019-12-20 04:12 | disposition home or self-care (01) ==
LOC: EDUNIT# → ED 01:03
DX: R41.0 Disorientation, unspecified (principal); F03.90 Unspecified dementia, unspecified severity, without behavioral disturbance, psychotic disturbance, mood disturbance, and anxiety; I10 Essential (primary) hypertension
CPT/HCPCS: 36415; 70450; 80053; 81001; 81003; 83690; 85025; 87086; 93005; 96361; 96374; 99283

== ENCOUNTER 2020-09-16 01:51 | Outpatient (CLI) | payer MEDICARE ==
--- OUTSIDE RECORDS SUMMARY | 2020-09-16 09:39 | EXTERNAL MEDICAL SUMMARY RPT | Continuity of Care Document ---
:1950 Demographics Phone Unavailable Preferred Language Unknown Marital Status Unknown Jainism Affiliation Unknown Race Unknown Ethnic Group Unknown Author Organization [place] Address [address] [id number] Phone Care Team Providers Name Role Phone Dannhauer Unavailable Unavailable Grant Unavailable Unavailable Grullon Unavailable Unavailable Provider Unavailable Unavailable Fly Unavailable Unavailable Problems date description facility 2013-06-11 10:23 LOC OSTEOARTH NOS-SHLDER [facility] 2013-10-17 10:06 CEREBROVASC DISEASE NOS [facility] 2013-10-17 10:23 HYPOTHYROIDISM NOS [facility] [place] 2013-10-17 10:23 VITAMIN D DEFICIENCY NOS [facility] 2013-10-17 10:23 HYPERTENSION NOS [facility] [place] 2013-10-17 10:23 OTH MED,LT,[facility] 2013-10-24 08:18 OTHER CHRONIC PAIN [facility] [place] 2013-10-24 08:18 LUMBAGO [facility] [place] 2013-10-24 08:18 SCIATICA [facility] [place] 2013-11-07 09:07 BACKACHE NOS [facility] [place] 2013-11-07 09:49 NO PROC FOR REASONS NEC [facility] 2013-11-07 11:30 LUMBOSACRAL SPONDYLOSIS [facility] 2013-11-07 11:30 LUMB/LUMBOSAC DISC DEGEN [facility] 2013-11-07 11:30 IDIOPATHIC SCOLIOSIS [facility] 2013-11-12 09:38 HYPOTHYROIDISM NOS [facility] [place] 2013-11-12 09:38 HYPERLIPIDEMIA NEC/NOS [facility] [place] 2013-11-12 09:38 OTHER ACUTE PAIN [facility] [place] 2013-11-12 09:38 OTHER CHRONIC PAIN [facility] [place] 2013-11-12 09:38 HYPERTENSION NOS [facility] [place] 2013-11-12 09:38 OSTEOARTHROS NOS-UNSPEC [facility] 2013-11-12 09:38 LUMB/LUMBOSAC DISC DEGEN [facility] 2013-11-12 09:38 MYALGIA AND MYOSITIS NOS [facility] 2013-11-12 09:38 INSOMNIA, UNSPECIFIED [facility] 2013-11-12 09:38 URGE INCONTINENCE [facility] 2013-11-12 09:38 OTH MED,LT,CURRENT USE [facility] 2013-11-16 01:00 POSTSURGICAL HYPOTHYROID [facility] 2013-11-16 01:00 VITAMIN D DEFICIENCY NOS [facility] 2013-11-16 01:00 HYPERLIPIDEMIA NEC/NOS [facility] 2013-11-16 01:00 MORBID OBESITY [facility] 2013-11-16 01:00 DRUG DEPEND NOS-CONTIN [facility] 2013-11-16 01:00 OTHER CHRONIC PAIN [facility] 2013-11-16 01:00 HYPERTENSION NOS [facility] 2013-11-16 01:00 TRANS CEREB ISCHEMIA NOS [facility] 2013-11-16 01:00 OTH LATE EFFECT-CEREBROVASCULAR [facility] DISEASE 2013-11-16 01:00 LUMBOSACRAL NEURITIS NOS [facility] 2013-11-16 01:00 MUSCLE WEAKNESS (GENERALIZED) [facility] 2013-11-16 01:00 MYALGIA AND MYOSITIS NOS [facility] 2013-11-16 01:00 LONG-TERM (CURRENT) USE OF ASPIRIN [facility] 2013-11-16 01:00 OTH MED,LT,CURRENT USE [facility] 2013-12-05 14:25 BACKACHE NOS [facility] 2013-12-31 04:30 URIN TRACT INFECTION NOS [facility] 2013-12-31 04:30 ARTHROPATHY NOS-L/LEG [facility] 2013-12-31 04:30 JOINT PAIN-L/LEG [facility] 2014-01-02 02:12 HYPOTHYROIDISM NOS [facility] 2014-01-02 02:12 PURE HYPERCHOLESTEROLEM [facility] 2014-01-02 02:12 OTHER CHRONIC PAIN [facility] 2014-01-02 02:12 HYPERTENSION NOS [facility] 2014-01-02 02:12 BACKACHE NOS [facility] 2014-01-02 02:12 MUSCLE WEAKNESS (GENERALIZED) [facility] 2014-01-02 02:12 ABDOMINAL PAIN, UNSPECIFIED SITE [facility] 2014-01-02 02:12 HX-DRUG ALLERGY NEC [facility] 2014-02-18 15:56 URIN TRACT INFECTION NOS [facility] 2014-02-18 15:56 DYSURIA [facility] 2014-04-10 15:56 HYPOTHYROIDISM NOS [facility] 2014-04-10 15:56 HYPOTENSION NOS [facility] 2014-04-10 15:56 JOINT PAIN-L/LEG [facility] 2014-04-10 15:56 SPINAL STENOSIS NOS [facility] 2014-04-29 15:51 HYPOTHYROIDISM NOS [facility] 2014-04-29 15:51 DIAB MERCEDEZ WO COMPL, TYPE II OR [facility] UNSPEC TYPE, NOT UNCNTRLD 2014-04-29 15:51 OTH MED,LT,CURRENT USE [facility] 2014-04-30 14:36 GENERAL MEDICAL EXAM NOS [facility] 2014-05-12 14:47 GENERAL MEDICAL EXAM NOS [facility] 2014-05-27 07:45 OTHER CHRONIC PAIN [facility] 2014-05-27 07:45 OTH MED,LT,CURRENT USE [facility] 2014-05-27 14:43 OTHER CHRONIC PAIN [facility] 2014-06-20 09:43 UN[facility] BEHAV RACHEL SKIN [facility] 2014-06-20 09:43 SPINAL STENOSIS, LUMBAR REG, W/OUT [facility] NEUROGENIC CLAUDICATION 2014-06-20 10:26 ALTERED MENTAL STATUS [facility] d[facility] [place] 2014-06-20 10:26 [facility]LT[facility] 2014-07-24 16:26 GENERAL MEDICAL EXAM NOS [facility] 2014-08-26 12:42 OTHER CHRONIC PAIN [facility] [place] 2014-08-26 12:42 OTH MED,LT,[facility] 2014-10-24 08:00 OTH MED,LT,[facility] 2014-11-28 13:43 ANXIETY STATE NOS [facility] [place] 2014-11-28 13:43 LUMBAGO [facility] [place] 2014-11-28 13:43 NAUSEA WITH V[facility]ITING [facility] 2015-07-05 14:10 HYPOTHYROIDISM, UNSPECIFIED [facility] 2015-07-05 14:10 PURE HYPERCHOLESTEROLEMIA [facility] 2015-07-05 14:10 [facility]DRATION [facility] 2015-07-05 14:10 ESSENTIAL (PRIMARY) HYPERTENSION [facility] 2015-07-05 14:10 HEADACHE [facility] 2015-07-20 14:36 DISORIENTATION, UNSPECIFIED [facility] 2015-07-20 14:36 FEVER, UNSPECIFIED [facility] 2015-07-20 14:36 HEADACHE [facility] 2015-07-20 14:36 OTHER CUSTODIAL (CURRENT) DRUG [facility] THERAPY 2017-04-19 15:28 HYPOTHYROIDISM, UNSPECIFIED [facility] 2017-04-19 15:28 PURE [facility]MIA[facility] 2017-04-19 15:28 ESSENTIAL (PRIMARY) HYPERTENSION [facility] 2017-04-19 15:28 UNSPECIFIED OSTEOARTHRITIS, [facility] UNSPECIFIED SITE 2017-04-19 15:28 PAIN IN LEFT LEG [facility] 2017-04-19 15:28 FIBROMYALGIA [facility] 2017-04-19 15:28 LOCALIZED EDEMA [facility] 2017-04-19 15:28 PARACHUTE MARKER (CURRENT) USE OF ASPIRIN [facility] 2017-04-19 15:28 PRSNL HX OF TIA (TIA), 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 2017-04-24 14:45 PAIN IN RIGHT LEG [facility] 2017-04-24 14:45 PAIN IN LEFT LEG [facility] 2017-05-18 06:17 HYPOTHYROIDISM, [facility]NSPECIFIED [facility] 2017-05-18 06:17 PURE HYPERCHOLESTEROLEMIA, [facility] UNSPECIFIED 2017-05-18 06:17 DEHYDRATION [facility] 2017-05-18 06:17 ACUTE SUPPR OTITIS MEDIA W/O SPON [facility] RUPT EAR DRUM, BILATERAL 2017-05-18 06:17 ESSENTIAL (PRIMARY) HYPERTENSION [facility] 2017-05-18 06:17 CEREBRAL INFARCTION, UNSPECIFIED [facility] 2017-05-18 06:17 HYPOXEMIA [facility] 2017-05-18 06:17 CUSTODIAL (CURRENT) USE OF ASPIRIN [facility] 2017-05-18 06:17 PRSNL HX OF TIA (TIA), 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 2017-12-28 16:45 HYPOTHYROIDISM, UNSPECIFIED [facility] 2017-12-28 16:45 MAJOR DEPRESSIVE DISORDER, SINGLE [facility] EPISODE, UNSPECIFIED 2017-12-28 16:45 ESSENTIAL (PRIMARY) HYPERTENSION [facility] 2017-12-28 16:45 CEREBRAL INFARCTION, UNSPECIFIED [facility] 2017-12-28 16:45 VENOUS INSUFFICIENCY (CHRONIC) [facility] (PERIPHERAL) 2017-12-28 16:45 UNSPECIFIED OSTEOARTHRITIS, [facility] UNSPECIFIED SITE 2017-12-28 16:45 EDEMA, UNSPECIFIED [facility] 2017-12-28 16:45 IMPAIRED FASTING GLUCOSE [facility] 2017-12-28 16:45 ENCOUNTER FOR SCREENING FOR [facility] CARDIOVASCULAR DISORDERS 2017-12-28 16:45 OTHER PARACHUTE MARKER (CURRENT) DRUG [facility] THERAPY 2018-01-22 15:15 NONTOXIC SINGLE THYROID NODULE [facility] 2018-07-06 15:46 ADJUSTMENT DISORDER, UNSPECIFIED [facility] 2018-07-06 15:46 ESSENTIAL (PRIMARY) HYPERTENSION [facility] 2018-07-06 15:46 OTHER SPECIFIED CARDIAC ARRHYTHMIAS [facility] 2018-07-06 15:46 OTHER CHEST PAIN [facility] 2018-07-06 15:46 NAUSEA [facility] 2018-12-21 18:18 ESSENTIAL (PRIMARY) HYPERTENSION [facility] 2018-12-21 18:18 ACUTE CYSTITIS WITHOUT HEMATURIA [facility] 2018-12-21 18:18 DYSURIA [facility] 2018-12-21 18:18 DO NOT RESUSCITATE [facility] 2018-12-21 18:18 PARACHUTE MARKER (CURRENT) USE OF ASPIRIN [facility] 2018-12-21 18:18 PRSNL HX OF TIA (TIA), 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 2019-03-12 12:52 ESSENTIAL (PRIMARY) HYPERTENSION [facility] 2019-03-12 12:52 OTHER SPECIFIED DISORDERS OF BLADDER W [facility] 2019-03-12 12:52 UNSPECIFIED ABDOMINAL PAIN [facility] 2019-03-12 12:52 NAUSEA WITH VOMITING, UNSPECIFIED [facility] 2019-03-12 12:52 CUSTODIAL (CURRENT) USE OF ASPIRIN [facility] 2019-03-15 12:46 PAIN IN RIGHT SHOULDER [facility] 2019-06-29 20:28 OPIOID DEPENDENCE WITH WITHDRAWAL [facility] 2019-06-29 20:28 ESSENTIAL (PRIMARY) HYPERTENSION [facility] 2019-06-29 20:28 HEADACHE [facility] 2019-06-29 20:28 DO NOT RESUSCITATE [facility] 2019-06-29 20:28 PARACHUTE MARKER (CURRENT) USE OF ASPIRIN [facility] 2019-07-15 13:24 ELEVATED WHITE BLOOD CELL COUNT, [facility] UNSPECIFIED 2019-07-15 13:24 GENERALIZED ABDOMINAL PAIN [facility] 2019-07-15 13:24 NAUSEA [facility] 2019-07-15 13:24 TREMOR, UNSPECIFIED [facility] 2019-07-15 13:24 DISORIENTATION, UNSPECIFIED [facility] 2019-07-15 13:24 ALTERED MENTAL STATUS, UNSPECIFIED i [facility] 2019-07-15 13:24 CUSTODIAL (CURRENT) USE OF ASPIRIN [facility] 2019-07-15 13:24 PRSNL HX OF TIA (TIA), 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 2019-12-20 01:03 UNSPECIFIED DEMENTIA WITHOUT [facility] BEHAVIORAL DISTURBANCE 2019-12-20 01:03 ESSENTIAL (PRIMARY) HYPERTENSION [facility] 2019-12-20 01:03 DISORIENTATION, [facility] 2019-12-20 01:03 ALTERED MENTAL STATUS, UNSPECIFIED [facility] Allergies date description facility [facility]ODONE [facility] AMOXICILLIN-POT CLAVULANATE [facility] NO KNOWN ENVIRONMENTAL ALLERGIES [facility] PENICILLINS [facility] Center NO KNOWN ALLERGIES [facility] peanut [facility] ibuprofen [facility] naproxen [facility] Center DUST MITE EXTRACT [facility] Center HYDROCODONE [facility] [place] HYDROXYCHLOROQUINE SULFATE [facility] POLLEN EXTRACT [facility] SULFASALAZINE [facility] NO KNOWN ENVIRONMENTAL ALLERGIES [facility] PENICILLINS [facility] SULFA ANTIBIOTICS [facility] Center NO KNOWN ALLERGIES [facility] Medic al Center ALMOND OIL [facility] FOOD [facility] PEANUTS [facility] naproxen [facility] NO KNOWN ENVIRONMENTAL ALLERGIES [facility] naproxen [facility] Medic [facility] DUST MITE EXTRACT [facility] Medic [facility] HYDROCODONE [facility] Medic [facility] POLLEN EXTRACT [facility] Medic [facility] NO KNOWN ENVIRONMENTAL ALLERGIES [facility] NO KNOWN ALLERGIES [facility] Medic [facility] FOOD [facility] Medic [facility] naproxen [facility] Medic [facility] HYDROXYCHLOROQUINE SULFATE [facility] SULFASALAZINE [facility] Medic [facility] NO KNOWN ENVIRONMENTAL ALLERGIES [facility] SULFA ANTIBIOTICS [facility] Medic [facility] Results Social History date description facility [id number]
== END 2020-09-16 01:52 | disposition critical access hospital (66) ==
LOC: EMS 01:51
PROVIDERS: ATTEND Surgery
DX: M54.5 Low back pain (principal); R30.0 Dysuria; R32 Unspecified urinary incontinence
CPT/HCPCS: A0425; A0429

== ENCOUNTER 2020-09-16 02:19 | Emergency (ER) | payer MEDICARE ==
[2020-09-16 02:44] LABS: BILIRUBIN,URINE NEGATIVE (NEGATIVE); GLUCOSE, URINE (UA) NEGATIVE (NEGATIVE); KETONES,URINE (UA) NEGATIVE (NEGATIVE); LEUKOCYTE ESTERASE, URINE NEGATIVE (NEGATIVE); NITRITE,URINE NEGATIVE (NEGATIVE); OCCULT BLOOD,URINE SMALL (NEGATIVE); PH,URINE 7.5 PH (5.0-7.5); PROTEIN,URINE NEGATIVE (NEGATIVE); UROBILINOGEN,URINE 0.2 (NORMAL) E.U./dL (NORMAL)
[2020-09-16 02:57] LABS: CLARITY,URINE CLEAR (CLEAR)
--- NOTE | 2020-09-16 02:58 | ED Physician Documentation ---
PD HPI ABD PAIN - Stated complaint Stated Complaint: LOWER AB PX - Chief complaint Chief Complaint: Abd Pain - History obtained from History obtained from: Patient, EMS - History of Present Illness Timing - onset: How many days ago (2-3) Timing - duration: Days Timing - details: Gradual onset (onset of left flank to low back pain, which worsened today, associated with discomfort upon urinating.), Still present (worse the past day) Quality: Aching, Pain Location: LLQ, Other (mostly left flank/back) Radiation: No: Chest, Left flank Improved by: Laying still Worsened by: Moving, Palpation. No: Breathing Associated symptoms: Constipation, Dysuria, Loss of appetite. No: Fever, Nausea, Vomiting, Diarrhea, Hematuria, Near syncope / syncope Similar symptoms before: Diagnosis (UTIs) Recently seen: Not recently seen. No: Clinic (denies running out of pain meds nor sleep meds.) Review of Systems Constitutional: denies: Fever, Chills, Myalgias Nose: denies: Rhinorrhea / runny nose, Congestion Throat: denies: Sore throat Cardiac: denies: Chest pain / pressure Respiratory: denies: Cough GI: reports: Abdominal Pain (some left lower abd), Abdominal Swelling, Constipation (lessened and firm). denies: Nausea, Vomiting, Diarrhea, Bloody / black stool : reports: Dysuria Skin: denies: Rash, Lesions Musculoskeletal: denies: Extremity swelling Neurologic: reports: Generalized weakness. 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 : None HEENT: None Psych: Depression, Anxiety, Panic attacks Musculoskeletal: Osteoarthritis Derm: None - Past Surgical History Past Surgical History: Yes General: Appendectomy Ortho: Arthroscopic surgery /PHARMACY DATA ANALYST: Dilation and currettage, Tubal ligation - Present Medications Home Medications: Ambulatory Orders Medication Instructions Recorded Confirmed HYDROcod/ACETAM 5/325 [Vicodin 1 - 2 ea PO Q6H PRN 02/05/13 12/20/19 5/325] Levothyroxine [Synthroid] 125 mcg PO QDAC 02/05/13 12/20/19 traZODone [Desyrel] 200 mg PO DAILY PM 10/24/13 12/20/19 Aspirin 325 mg PO DAILY 11/15/13 12/20/19 Morphine ER [Ms Contin] 60 mg PO Q8H 11/16/13 12/20/19 Ondansetron [Zofran] 4 mg PO Q6H PRN #10 tablet 01/02/14 12/20/19 Famotidine [Pepcid] 20 mg PO ONCE #30 tablet 07/06/18 12/20/19 Lorazepam [Ativan] 1 mg PO Q8H PRN #12 tablet 07/06/18 12/20/19 lisinopriL [Lisinopril] 10 mg PO DAILY #20 tablet 07/06/18 12/20/19 Promethazine [Phenergan] 25 - 50 mg PO Q6H PRN #10 tab 03/12/19 12/20/19 Hydrocodone/Acetaminophen 1 - 2 each PO BID #8 tablet 06/29/19 12/20/19 [Hydrocodon-Acetaminophen 5-325] Morphine ER 30 mg PO Q12H #4 tablet 06/29/19 12/20/19 Nitrofurantoin Monohyd/M-Cryst 100 mg PO BID #10 capsule 09/16/20 [Macrobid 100 mg Capsule] Phenazopyridine HCl [Pyridium] 100 mg PO TID PRN #15 tablet 09/16/20 dexAMETHasone [Decadron] 4 mg PO DAILY #5 tablet 09/16/20 diazePAM [Valium] 5 mg PO BID PRN #15 tablet 09/16/20 - Allergies Allergies/Adverse Reactions: Allergies Allergy/AdvReac Type Severity Reaction Status Date / Time naproxen [From Naprosyn] Allergy Mild Unknown Verified 09/16/20 02:38 - Social History Does the pt smoke?: No Smoking Status: Never smoker Does the pt drink ETOH?: No Does the pt have substance abuse?: No - Immunizations Immunizations are current?: Yes - POLST Patient has POLST: Yes POLST Status: DNR PD ED PE NORMAL - Vitals Vital signs reviewed: Yes - General General: Alert and oriented X 3, Well developed/nourished, Other (appears in pain from back. anxious as well. ) - HEENT HEENT: Atraumatic, Pharynx benign - Neck Neck: Supple, no meningeal sign, No adenopathy - Cardiac Cardiac: RRR, No murmur - Respiratory Respiratory: Clear bilaterally - Abdomen Abdomen: Normal bowel sounds, Soft, Non distended, Other (some tenderness with local guarding LLQ, with percussion nor rebound tenderness. ) - Female Female : Deferred - Rectal Rectal: Deferred - Back Back: No CVA TTP, No spinal TTP, Other (tender in muscles adjacent to spine. No redness, rash nor sores. ) - Derm Derm: Normal color, Warm and dry, No rash (normal skin appearance on back. ) - Extremities Extremities: No tenderness to palpate, Normal ROM s pain, No edema, No calf tenderness / cord - Neuro Neuro: Alert and oriented X 3 Eye Opening: Spontaneous Motor: Obeys Commands Verbal: Oriented GCS Score: 15 - Psych Psych: No: Normal affect (anxious and in pain) Results - Vitals Vitals: Vital Signs - 24 hr 09/16/20 09/16/20 02:35 04:38 Temperature 36.9 C 36.5 C Heart Rate 58 L 51 L Respiratory 18 16 Rate Blood Pressure 170/105 H 157/73 H O2 Saturation 100 100 Oxygen O2 Source Room air - Labs Labs: Laboratory Tests 09/16/20 09/16/20 09/16/20 02:32 03:45 03:45 WBC 9.3 RBC 4.40 Hgb 14.3 Hct 43.2 MCV 98.2 MCH 32.5 H MCHC 33.1 RDW 13.8 Plt Count 203 MPV 10.0 Neut # (Auto) 6.3 Lymph # (Auto) 2.3 [place] # (Auto) 0.6 Eos # (Auto) 0.0 Baso # (Auto) 0.0 Absolute Nucleated RBC 0.00 Nucleated RBC % 0.0 Sodium 142 Potassium 3.3 L Chloride 109 Carbon Dioxide 21 Anion Gap 12.0 BUN 15 Creatinine 0.8 Estimated GFR (MDRD) 71 L Glucose 106 H Calcium 9.7 Total Bilirubin 1.8 H AST 25 ALT 13 Alkaline Phosphatase 61 Total Protein 7.5 Albumin 4.2 Globulin 3.3 Albumin/Globulin Ratio 1.3 Lipase 24 Urine Color YELLOW Urine Clarity CLEAR Urine pH 7.5 Ur Specific [place] 1.010 Urine Protein NEGATIVE Urine Glucose (UA) NEGATIVE Urine Ketones NEGATIVE Urine Occult Blood SMALL H Urine Nitrite NEGATIVE Urine Bilirubin NEGATIVE Urine Urobilinogen 0.2 (NORMAL) Ur Leukocyte Esterase NEGATIVE Urine RBC 0-5 Urine WBC 0-3 Ur Squamous Epith Cells FEW Squamous Urine Bacteria Rare Ur Microscopic Review INDICATED Urine Culture Comments NOT INDICATED - Rads (name of study) abd CT Radiology: Prelim report reviewed (no acute process), See rad report PD MEDICAL DECISION MAKING - ED course Complexity details: reviewed results (no UTI by UA. Her symptoms are suggestive of UTI versua interstitial cystitis. Flank and abd pain presume muscular. ), re- evaluated patient (improved with pain meds and fluids. ), considered differential (consider muscular back pain, versus diverticulitis, kidney stone, UTI, vascular such as aneurysm. etc. ), d/w patient Departure - Departure Clinical Impression: Dysuria, Acute left flank pain, Left sided abdominal pain Condition: Stable Record reviewed to determine appropriate education?: Yes Instructions: ED Flank Pain Uncertain Cause, ED Dysuria Uncertain Cause Prescriptions: dexAMETHasone [Decadron] 4 mg PO DAILY #5 tablet Nitrofurantoin Monohyd/M-Cryst [Macrobid 100 mg Capsule] 100 mg PO BID #10 capsule Phenazopyridine HCl [Pyridium] 100 mg PO TID PRN #15 tablet PRN Reason: Abdominal Pain diazePAM [Valium] 5 mg PO BID PRN #15 tablet PRN Reason: Spasms Comments: Stay well-hydrated. Your urine sample does not show signs of an obvious infection but your symptoms are suggestive of it. We could try Macrobid antibiotic for 5 days in case of early infection. Otherwise there could be an inflammatory cause for the difficulty urinating and discomfort. This is called interstitial cystitis and would get treated with an anti-inflammatory as well as phenoazopyridine for the discomfort. For your back, the CT scan did not show any obvious cause for the pain such as kidney stones or infection, intestinal problems, diverticulitis, etc. Continue usual pain medicines. Add diazepam as needed for spasms and stiffness. Recheck if not improved well over the next few days. Return if other symptoms d evelop such as fever, rash, increased pain or other concerns.
[2020-09-16 03:02] LABS: BACTERIA,URINE Rare /HPF (None Seen); RBC,URINE 0-5 /HPF (0-5); SQUAMOUS EPITHELIAL CELL,UR FEW Squamous (<= Few)
[2020-09-16] MEDS ORDERED: SODIUM CHLORIDE 0.9% 1,000 ML IV STA (03:14)
[2020-09-16] MEDS ORDERED: ONDANSETRON 4 MG/2 ML VIAL IVP STA (03:14)
[2020-09-16] MEDS ORDERED: KETOROLAC 15 MG/ML VIAL IVP STA (03:14)
[2020-09-16] MEDS ORDERED: HYDROmorphone 1 MG/ML CARPUJECT IVP STA ×3 (03:14→05:17)
[2020-09-16] MEDS ORDERED: LORazepam 2 MG/ML VIAL IVP STA ×2 (03:36→05:24)
[2020-09-16 03:50] LABS: BASOPHILS % (AUTO) 0.4 %; EOSINOPHILS % (AUTO) 0.1 %; HGB - HEMOGLOBIN 14.3 g/dL (12.0-16.0); LYMPHOCYTES # (AUTO) 2.3 10^3/uL (1.5-3.5); LYMPHOCYTES % (AUTO) 25.2 %; MEAN CORPUSCULAR HEMOGLOBIN 32.5 pg (27.0-31.0); MEAN CORPUSCULAR HGB CONC 33.1 g/dL (32.0-36.0); MEAN CORPUSCULAR VOLUME 98.2 fL (81.0-99.0); MONOCYTES # (AUTO) 0.6 10^3/uL (0.0-1.0); MONOCYTES % (AUTO) 6.1 %; NEUTROPHILS # (AUTO) 6.3 10^3/uL (1.5-6.6); NEUTROPHILS % (AUTO) 67.8 %; PLT - PLATELET COUNT 203 10^3/uL (130-450); RED CELL DISTRIBUTION WIDTH 13.8 % (12.0-15.0); WHITE BLOOD COUNT 9.3 x10^3/uL (4.8-10.8)
[2020-09-16 04:03] LABS: ALBUMIN 4.2 g/dL (3.2-5.5); ALBUMIN/GLOBULIN RATIO 1.3 (1.0-2.2); BILIRUBIN,TOTAL 1.8 mg/dL (0.2-1.0); CALCIUM 9.7 mg/dL (8.5-10.3); CREATININE 0.8 mg/dL (0.4-1.0); TOTAL PROTEIN 7.5 g/dL (6.7-8.2)
[2020-09-16] MEDS ORDERED: HYDROmorphone 1 MG/ML CARPUJECT ONE (04:34)
--- OUTSIDE RECORDS SUMMARY | 2020-09-16 04:56 | EXTERNAL MEDICAL SUMMARY RPT | Continuity of Care Document ---
:1950 Demographics Phone Unavailable Preferred Language Unknown Marital Status Unknown Lutheran Affiliation Unknown Race Unknown Ethnic Group Unknown Author Organization [place] Address [address] [id number] Phone Care Team Providers Name Role Phone Grullon Unavailable Unavailable Dannhauer Unavailable Unavailable Grant Unavailable Unavailable Fly Unavailable Unavailable Provider Unavailable Unavailable Problems date description facility 2013-06-11 10:23 LOC OSTEOARTH NOS-SHLDER [facility] 2013-10-17 10:06 CEREBROVASC DISEASE NOS [facility] 2013-10-17 10:23 HYPOTHYROIDISM NOS [facility] Medic [facility] 2013-10-17 10:23 VITAMIN D DEFICIENCY NOS [facility] 2013-10-17 10:23 HYPERTENSION NOS [facility] 2013-10-17 10:23 OTH MED,LT,CURRENT [facility] 2013-10-24 08:18 OTHER CHRONIC PAIN [facility] 2013-10-24 08:18 LUMBAGO [facility] 2013-10-24 08:18 SCIATICA [facility] 2013-11-07 09:07 BACKACHE NOS [facility] 2013-11-07 09:49 NO PROC FOR REASONS NEC [facility] 2013-11-07 11:30 LUMBOSACRAL SPONDYLOSIS [facility] 2013-11-07 11:30 LUMB/LUMBOSAC DISC DEGEN [facility] 2013-11-07 11:30 IDIOPATHIC SCOLIOSIS [facility] ical Center 2013-11-12 09:38 HYPOTHYROIDISM NOS [facility] 2013-11-12 09:38 HYPERLIPIDEMIA NEC/NOS [facility] edical [facility] 2013-11-12 09:38 OTHER ACUTE PAIN [facility] 2013-11-12 09:38 OTHER CHRONIC PAIN [facility] 2013-11-12 09:38 HYPERTENSION NOS [facility] 2013-11-12 09:38 OSTEOARTHROS NOS-UNSPEC [facility] 2013-11-12 09:38 LUMB/LUMBOSAC DISC DEGEN [facility] 2013-11-12 09:38 MYALGIA AND MYOSITIS NOS [facility] 2013-11-12 09:38 INSOMNIA, UNSPECIFIED [facility] 2013-11-12 09:38 URGE INCONTINENCE [facility] Medic [facility] 2013-11-12 09:38 OTH MED,LT,CURRENT USE [facility] 2013-11-16 01:00 POSTSURGICAL HYPOTHYROID [facility] 2013-11-16 01:00 VITAMIN D DEFICIENCY NOS [facility] 2013-11-16 01:00 HYPERLIPIDEMIA NEC/NOS [facility] 2013-11-16 01:00 MORBID OBESITY [facility] Medic [facility] 2013-11-16 01:00 DRUG DEPEND NOS-CONTIN [facility] 2013-11-16 01:00 OTHER CHRONIC PAIN [facility] 2013-11-16 01:00 HYPERTENSION NOS [facility] 2013-11-16 01:00 TRANS CEREB ISCHEMIA NOS [facility] 2013-11-16 01:00 OTH LATE EFFECT-CEREBROVASCULAR [facility] DISEASE 2013-11-16 01:00 LUMBOSACRAL NEURITIS NOS [facility] 2013-11-16 01:00 MUSCLE WEAKNESS (GENERALIZED) [facility] 2013-11-16 01:00 MYALGIA AND MYOSITIS NOS [facility] 2013-11-16 01:00 LONG-TERM (CURRENT) USE OF [facility] 2013-11-16 01:00 OTH MED,LT,CURRENT USE [facility] 2013-12-05 14:25 BACKACHE NOS [facility] Medic [facility] 2013-12-31 04:30 URIN TRACT INFECTION NOS [facility] 2013-12-31 04:30 ARTHROPATHY NOS-L/LEG [facility] 2013-12-31 04:30 JOINT PAIN-L/LEG [facility] Medic [facility] 2014-01-02 02:12 HYPOTHYROIDISM NOS [facility] 2014-01-02 02:12 PURE HYPERCHOLESTEROLEM [facility] 2014-01-02 02:12 OTHER CHRONIC PAIN [facility] 2014-01-02 02:12 HYPERTENSION NOS [facility] 2014-01-02 02:12 BACKACHE NOS [facility] 2014-01-02 02:12 MUSCLE WEAKNESS (GENERALIZED) [facility] 2014-01-02 02:12 ABDOMINAL PAIN, UNSPECIFIED SITE [facility] 2014-01-02 02:12 HX-DRUG ALLERGY NEC [facility] 2014-02-18 15:56 URIN TRACT INFECTION NOS [facility] 2014-02-18 15:56 DYSURIA [facility] 2014-04-10 15:56 HYPOTHYROIDISM NOS [facility] 2014-04-10 15:56 HYPOTENSION NOS [facility] 2014-04-10 15:56 JOINT PAIN-L/LEG [facility] 2014-04-10 15:56 SPINAL STENOSIS NOS [facility] 2014-04-29 15:51 HYPOTHYROIDISM NOS [facility] 2014-04-29 15:51 DIAB MERCEDEZ WO COMPL, TYPE II OR [facility] UNSPEC TYPE, NOT UNCNTRLD 2014-04-29 15:51 OTH MED,LT,CURRENT USE [facility] 2014-04-30 14:36 GENERAL MEDICAL EXAM NOS [facility] 2014-05-12 14:47 GENERAL MEDICAL EXAM NOS [facility] 2014-05-27 07:45 OTHER CHRONIC PAIN [facility] 2014-05-27 07:45 OTH MED,LT,CURRENT USE [facility] 2014-05-27 14:43 OTHER CHRONIC PAIN [facility] 2014-06-20 09:43 [facility] BEHAV RACHEL SKIN [facility] 2014-06-20 09:43 SPINAL STENOSIS, LUMBAR REG, W/OUT [facility] NEUROGENIC CLAUDICATION 2014-06-20 10:26 ALTERED MENTAL STATUS [facility] dical [facility] 2014-06-20 10:26 OTH MED,LT,[facility] 2014-07-24 16:26 GENERAL MEDICAL EXAM NOS [facility] 2014-08-26 12:42 OTHER CHRONIC PAIN [facility] 2014-08-26 12:42 OTH MED,LT,[facility] 2014-10-24 08:00 OTH MED,LT,[facility] 2014-11-28 13:43 ANXIETY STATE NOS [facility] 2014-11-28 13:43 LUMBAGO [facility] 2014-11-28 13:43 NAUSEA WITH VOMITING [facility] [place] 2015-07-05 14:10 HYPOTHYROIDISM, UNSPECIFIED [facility] 2015-07-05 14:10 PURE HYPERCHOLESTEROLEMIA [facility] 2015-07-05 14:10 [facility]DRATION [facility] [place] [facility] 2015-07-05 14:10 ESSENTIAL (PRIMARY) HYPERTENSION [facility] 2015-07-05 14:10 HEADACHE [facility] 2015-07-20 14:36 DISORIENTATION, UNSPECIFIED [facility] 2015-07-20 14:36 FEVER, UNSPECIFIED [facility] 2015-07-20 14:36 HEADACHE [facility] 2015-07-20 14:36 OTHER ALF (CURRENT) DRUG [facility] THERAPY 2017-04-19 15:28 HYPOTHYROIDISM, UNSPECIFIED [facility] 2017-04-19 15:28 P[address] [facility]LEMIA, [facility]NS[facility] 2017-04-19 15:28 ESSENTIAL (PRIMARY) HYPERTENSION [facility] 2017-04-19 15:28 UNSPECIFIED OSTEOARTHRITIS, [facility] UNSPECIFIED SITE 2017-04-19 15:28 PAIN IN LEFT LEG [facility] Medic [facility] 2017-04-19 15:28 FIBROMYALGIA [facility] 2017-04-19 15:28 LOCALIZED EDEMA [facility] 2017-04-19 15:28 RAIL SIGNAL MECHANIC (CURRENT) USE OF [facility] 2017-04-19 15:28 PRSNL HX OF TIA (TIA), AND CEREB [facility] INFRC W/O RESID DEFICITS 2017-04-24 14:45 PAIN IN RIGHT LEG [facility] 2017-04-24 14:45 PAIN IN LEFT LEG [facility] 2017-05-18 06:17 HYPOTHYROIDISM, [facility]PECIFIED [facility] 2017-05-18 06:17 PURE HYPERCHOLESTEROLEMIA, [facility] UNSPECIFIED 2017-05-18 06:17 DEHYDRATION [facility] 2017-05-18 06:17 ACUTE SUPPR OTITIS MEDIA W/O SPON [facility] RUPT EAR DRUM, BILATERAL 2017-05-18 06:17 ESSENTIAL (PRIMARY) HYPERTENSION [facility] 2017-05-18 06:17 CEREBRAL INFARCTION, UNSPECIFIED [facility] 2017-05-18 06:17 HYPOXEMIA [facility] 2017-05-18 06:17 ALF (CURRENT) USE OF [facility] 2017-05-18 06:17 PRSNL HX OF TIA (TIA), AND CEREB [facility] INFRC W/O RESID DEFICITS 2017-12-28 16:45 HYPOTHYROIDISM, UNSPECIFIED [facility] 2017-12-28 16:45 MAJOR DEPRESSIVE DISORDER, SINGLE [facility] EPISODE, UNSPECIFIED 2017-12-28 16:45 ESSENTIAL (PRIMARY) HYPERTENSION [facility] 2017-12-28 16:45 CEREBRAL INFARCTION, UNSPECIFIED [facility] 2017-12-28 16:45 VENOUS INSUFFICIENCY (CHRONIC) [facility] (PERIPHERAL) 2017-12-28 16:45 UNSPECIFIED OSTEOARTHRITIS, [facility] UNSPECIFIED SITE 2017-12-28 16:45 EDEMA, UNSPECIFIED [facility] 2017-12-28 16:45 IMPAIRED FASTING GLUCOSE [facility] 2017-12-28 16:45 ENCOUNTER FOR SCREENING FOR [facility] CARDIOVASCULAR DISORDERS 2017-12-28 16:45 OTHER RAIL SIGNAL MECHANIC (CURRENT) DRUG [facility] THERAPY 2018-01-22 15:15 NONTOXIC SINGLE THYROID NODULE [facility] 2018-07-06 15:46 ADJUSTMENT DISORDER, UNSPECIFIED [facility] 2018-07-06 15:46 ESSENTIAL (PRIMARY) HYPERTENSION [facility] 2018-07-06 15:46 OTHER SPECIFIED CARDIAC ARRHYTHMIAS [facility] 2018-07-06 15:46 OTHER CHEST PAIN [facility] 2018-07-06 15:46 NAUSEA [facility] 2018-12-21 18:18 ESSENTIAL (PRIMARY) HYPERTENSION [facility] 2018-12-21 18:18 ACUTE CYSTITIS WITHOUT HEMATURIA [facility] 2018-12-21 18:18 DYSURIA [facility] 2018-12-21 18:18 DO NOT RESUSCITATE [facility] 2018-12-21 18:18 RAIL SIGNAL MECHANIC (CURRENT) USE OF [facility] 2018-12-21 18:18 PRSNL HX OF TIA (TIA), AND CEREB [facility] INFRC W/O RESID DEFICITS 2019-03-12 12:52 ESSENTIAL (PRIMARY) HYPERTENSION [facility] 2019-03-12 12:52 OTHER SPECIFIED DISORDERS OF BLADDER W [facility] 2019-03-12 12:52 UNSPECIFIED ABDOMINAL PAIN [facility] 2019-03-12 12:52 NAUSEA WITH VOMITING, UNSPECIFIED [facility] 2019-03-12 12:52 ALF (CURRENT) USE OF [facility] 2019-03-15 12:46 PAIN IN RIGHT SHOULDER [facility] 2019-06-29 20:28 OPIOID DEPENDENCE WITH WITHDRAWAL [facility] 2019-06-29 20:28 ESSENTIAL (PRIMARY) HYPERTENSION [facility] 2019-06-29 20:28 HEADACHE [facility] 2019-06-29 20:28 DO NOT RESUSCITATE [facility] 2019-06-29 20:28 RAIL SIGNAL MECHANIC (CURRENT) USE OF [facility] 2019-07-15 13:24 ELEVATED WHITE BLOOD CELL COUNT, [facility] UNSPECIFIED 2019-07-15 13:24 GENERALIZED ABDOMINAL PAIN [facility] 2019-07-15 13:24 NAUSEA [facility] Medic [facility] 2019-07-15 13:24 TREMOR, UNSPECIFIED [facility] 2019-07-15 13:24 DISORIENTATION, [facility] 2019-07-15 13:24 ALTERED MENTAL STATUS, UNSPECIFIED i [facility] 2019-07-15 13:24 ALF (CURRENT) USE OF [facility] 2019-07-15 13:24 PRSNL HX OF TIA (TIA), AND CEREB [facility] INFRC W/O RESID DEFICITS 2019-12-20 01:03 UNSPECIFIED DEMENTIA WITHOUT [facility] BEHAVIORAL DISTURBANCE 2019-12-20 01:03 ESSENTIAL (PRIMARY) HYPERTENSION [facility] 2019-12-20 01:03 DISORIENTATION, [facility] 2019-12-20 01:03 ALTERED MENTAL STATUS, UNSPECIFIED [facility] Allergies date description facility HYDROCODONE [facility] [place] [facility] AMOXICILLIN-POT CLAVULANATE [facility] NO KNOWN ENVIRONMENTAL ALLERGIES [facility] PENICILLINS [facility] [place] [facility] peanut [facility] Medic al Center ibuprofen [facility] Medic al Center naproxen [facility] Medic al Center DUST MITE EXTRACT [facility] [place] [facility] HYDROCODONE [facility] [place] [facility] HYDROXYCHLOROQUINE SULFATE [facility] MORPHINE [facility] [place] [facility] POLLEN EXTRACT [facility] Medic al Center SULFASALAZINE [facility] [place] [facility] NO KNOWN ENVIRONMENTAL ALLERGIES [facility] PENICILLINS [facility] [place] [facility] SULFA ANTIBIOTICS [facility] [place] [facility] NO KNOWN ALLERGIES [facility] [place] [facility] ALMOND OIL [facility] [place] [facility] FOOD [facility] [place] [facility] PEANUTS [facility] naproxen [facility] NO KNOWN ENVIRONMENTAL ALLERGIES [facility] naproxen [facility] Medic al Center DUST MITE EXTRACT [facility] Medic al [place] HYDROCODONE [facility] Medic al [place] POLLEN EXTRACT [facility] Medic [facility] NO KNOWN ENVIRONMENTAL ALLERGIES [facility] NO KNOWN ALLERGIES [facility] Medic al Center FOOD [facility] Medic al Center naproxen [facility] Medic al [place] HYDROXYCHLOROQUINE SULFATE [facility] SULFASALAZINE [facility] Medic [facility] NO KNOWN ENVIRONMENTAL ALLERGIES [facility] SULFA ANTIBIOTICS [facility] Medic [facility] Results Social History date description facility [id number]
[2020-09-16] MEDS ORDERED: PHENAZOPYRIDINE 100 MG TABLET PO STA (05:17)
[2020-09-16] MEDS ORDERED: NITROFURANTOIN MACRO 100 MG CAPSULE PO STA (05:24)
[2020-09-16 06:17] VITALS: BP 170/90
--- NOTE | 2020-09-16 09:39 | CT Report ---
PROCEDURE: Abdomen/Pelvis WO INDICATIONS: lower back and left abd pain TECHNIQUE: Noncontrast 5 mm thick sections acquired from the diaphragms to the symphysis. 5 mm coronal and sagi ttal reformats were then performed. For radiation dose reduction, the following was used: automated exposure control, adjustment of mA and/or kV according to patient size. COMPARISON: CT abdomen 07/15/19, 03/12/19. FINDINGS: Image quality: Excellent. ABDOMEN: Lung bases: There is mild scarring or atelectasis in the right lung base. Heart size is normal. Solid organs: Noncontrast evaluation of the liver demonstrates no focal hepatic lesions. The gallblad bartolo is distended. No calcified gallstones or wall thickening. There is mild biliary ductal dilatation , with the common bile duct measuring up to approximately 0.9 cm. The calcified common duct stone. No discrete mass identified in the absence of intravenous contrast. No pancreatic duct dilatation. No p eripancreatic fat stranding or fluid collections. The spleen is normal in size. A small left adrenal nodule is redemonstrated, measuring up to 1.3 cm. This demonstrates indeterminate attenuation values but appears similar in size compared to the prior studies. There is a prominent right parapelvic renal cyst. No hydronephrosis in the kidneys. Multiple, at leas t 6, nonobstructing right renal stones are redemonstrated, with the largest measuring up to 0.8 cm. N o left renal stones. There is mild nonspecific perinephric stranding redemonstrated bilaterally. A sm all exophytic left renal cyst is redemonstrated with a punctate focus of wall calcification. Ureters are nondistended. Peritoneum and bowel: Visualized bowel loops demonstrate normal wall thickness and caliber. No perice mone inflammatory changes to suggest acute appendicitis. No free fluid or air. Nodes and vessels: No retroperitoneal or mesenteric adenopathy by size criteria. Aorta and inferior vena cava are normal in caliber. Miscellaneous: No ventral hernias. PELVIS: Genitourinary: The urinary bladder is partially distended. Miscellaneous: No inguinal hernias or adenopathy. Bones: No suspicious bony lesions. No vertebral body compression fractures. IMPRESSION: 1. Right nephrolithiasis without evidence of obstructive uropathy. A prominent right parapelvic renal cyst is redemonstrated. 2. Mild biliary ductal dilatation without a calcified obstructing stone visualized. Recommend correla tion with laboratory values. Findings discussed with Dr. Miguel on 09/16/2020 at 9:00 AM. Reviewed by: Best Rao MD on 09/16/2020 9:38 AM [facility] Approved by: Best Rao MD on 09/16/2020 9:38 AM [facility] Station ID: [id number]
--- NOTE | 2020-09-16 09:43 | ED Physician Documentation ---
ED Addendum - Addendum Addendum: 09/16/20 09:43 Took call from radiologist doing over read on CT, CT did demonstrate right nephrolithiasis without obstructive uropathy and mild biliary ductal dilatation. Looking at Dr. Schwartz's notes, she complained of left flank and low back pain which would be inconsistent with these findings. Her bilirubin is 1.8, but the remainder of her liver enzymes/alkaline phosphatase are normal. She has had mild elevations in her bilirubin in the past.
== END 2020-09-16 07:12 | disposition home or self-care (01) ==
LOC: EDUNIT# → EDBD → ED 02:19
DX: R30.0 Dysuria (principal); R10.32 Left lower quadrant pain
CPT/HCPCS: 36415; 74176; 80053; 81001; 83690; 85025; 96374; 96375; 96376; 99284; A9270; J1170; J2060; 81003; 87086

== ENCOUNTER 2020-09-17 03:35 | Outpatient (CLI) | payer MEDICARE | END 2020-09-17 03:36 | disposition critical access hospital (66) | LOC: EMS 03:35 | PROVIDERS: ATTEND Surgery | DX: M54.5 Low back pain (principal); R10.9 Unspecified abdominal pain | CPT/HCPCS: A0425; A0429 ==

== ENCOUNTER 2020-09-17 03:59 | Emergency (ER) | payer MEDICARE ==
--- NOTE | 2020-09-17 04:35 | ED Physician Documentation ---
PD HPI BACK PAIN - Stated complaint Stated Complaint: BACK PAIN - Chief complaint Chief Complaint: Trauma Ch/Bk - History obtained from History obtained from: Patient, EMS - Additional information Additional information: Patient comes emergency department chief complaint of low back pain. The patient was just seen here yesterday for the same, and has a history of chronic low back pain on a heavy regimen of narcotics. Patient also has a history of fibromyalgia and anxiety. She denies any specific injury or event that seems to have initiated this pain. She states that she has not developed any fever or chills. She is a little bit nauseated. Patient was seen here last night and had a full work-up, including labs, urinalysis, and ultimately, CT scan of the abdomen pelvis. No acute findings to explain her pain were found. The patient was started on antibiotics for potential urinary tract infection and was also placed on dexamethasone orally. She states that nothing seems to be helping her pain at home. She states she hurts all the time no matter which way she moves, though the pain did seem to be initiated by movement initially. No abdominal pain. No change in bowel habits. No pain shooting down legs or paresthesias. No loss of bowel or bladder control. No other complaints at this time. 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 Review of the patient's records reveal she has been here previously for back pain and other chronic pain complaints, and that she was admitted in 2013 for intractable back pain. The patient states that she has seen a pain specialist in the past and used a nerve stimulator, but that it did not do anything for her pain. She no longer sees a chronic pain specialist and states that her pain medications are just handled by her primary doctor. Review of Systems Ten Systems: 10 systems reviewed and negative Constitutional: reports: Reviewed and negative Eyes: reports: Reviewed and negative Ears: reports: Reviewed and negative Nose: reports: Reviewed and negative Throat: reports: Reviewed and negative Cardiac: reports: Reviewed and negative Respiratory: reports: Reviewed and negative GI: reports: Reviewed and negative : reports: Reviewed and negative Skin: reports: Reviewed and negative Musculoskeletal: reports: Back pain Neurologic: reports: Reviewed and negative Psychiatric: reports: Reviewed and negative Endocrine: reports: Reviewed and negative Immunocompromised: reports: Reviewed and negative PD PAST MEDICAL HISTORY - Past Medical History Past Medical History: Yes Cardiovascular: Hypertension, High cholesterol Respiratory: None Neuro: CVA, Headaches Endocrine/Autoimmune: HyPOthyroidism GI: None MGMT CONSULTANT: None : None HEENT: None Psych: Depression, Anxiety, Panic attacks Musculoskeletal: Osteoarthritis Derm: None - Past Surgical History Past Surgical History: Yes General: Appendectomy Ortho: Arthroscopic surgery /MGMT CONSULTANT: Dilation and currettage, Tubal ligation - Present Medications Home Medications: Ambulatory Orders Medication Instructions Recorded Confirmed HYDROcod/ACETAM 5/325 [Vicodin 1 - 2 ea PO Q6H PRN 02/05/13 09/17/20 5/325] Levothyroxine [Synthroid] 125 mcg PO QDAC 02/05/13 09/17/20 traZODone [Desyrel] 200 mg PO DAILY PM 10/24/13 09/17/20 Aspirin 325 mg PO DAILY 11/15/13 09/17/20 Morphine ER [Ms Contin] 60 mg PO Q8H 11/16/13 09/17/20 Ondansetron [Zofran] 4 mg PO Q6H PRN #10 tablet 01/02/14 09/17/20 Famotidine [Pepcid] 20 mg PO ONCE #30 tablet 07/06/18 09/17/20 Lorazepam [Ativan] 1 mg PO Q8H PRN #12 tablet 07/06/18 09/17/20 lisinopriL [Lisinopril] 10 mg PO DAILY #20 tablet 07/06/18 09/17/20 Promethazine [Phenergan] 25 - 50 mg PO Q6H PRN #10 tab 03/12/19 09/17/20 Hydrocodone/Acetaminophen 1 - 2 each PO BID #8 tablet 06/29/19 09/17/20 [Hydrocodon-Acetaminophen 5-325] Morphine ER 30 mg PO Q12H #4 tablet 06/29/19 09/17/20 Nitrofurantoin Monohyd/M-Cryst 100 mg PO BID #10 capsule 09/16/20 09/17/20 [Macrobid 100 mg Capsule] Phenazopyridine HCl [Pyridium] 100 mg PO TID PRN #15 tablet 09/16/20 09/17/20 dexAMETHasone [Decadron] 4 mg PO DAILY #5 tablet 09/16/20 09/17/20 diazePAM [Valium] 5 mg PO BID PRN #15 tablet 09/16/20 09/17/20 Ondansetron Odt [Zofran] 4 mg TL Q6H PRN #10 tablet 09/17/20 - Allergies Allergies/Adverse Reactions: Allergies Allergy/AdvReac Type Severity Reaction Status Date / Time naproxen [From Naprosyn] Allergy Mild Unknown Verified 09/17/20 04:11 - Social History Does the pt smoke?: No Smoking Status: Never smoker Does the pt drink ETOH?: No Does the pt have substance abuse?: No - Immunizations Immunizations are current?: Yes - POLST Patient has POLST: Yes POLST Status: DNR PD ED PE NORMAL - Vitals Vital signs reviewed: Yes - General General: Alert and oriented X 3, Well developed/nourished (obese), Other (The patient is anxious and tearful. Patient appears to be poorly conditioned physically.) - HEENT HEENT: Atraumatic, PERRL, EOMI, Moist mucous membranes - Neck Neck: Supple, no meningeal sign - Cardiac Cardiac: RRR, No murmur, Strong equal pulses - Respiratory Respiratory: No respiratory distress, Clear bilaterally - Back Back: No CVA TTP, No spinal TTP, Other (Patient has some tenderness of the lumbar musculature around the levels of L1-3 bilaterally. No palpable spasm.) - Derm Derm: Normal color, Warm and dry, No rash - Extremities Extremities: No deformity, Other (Mild lower extremity edema bilaterally, symmetrical.) - Neuro Neuro: Alert and oriented X 3, environmental health manager 2-12 intact, Normal speech - Psych Psych: Normal mood, Normal affect Results - Vitals Vitals: Vital Signs - 24 hr 09/17/20 09/17/20 04:13 04:15 Temperature 36.5 C 36.5 C Heart Rate 58 L 58 L Respiratory 18 16 Rate Blood Pressure 148/80 H 138/80 H O2 Saturation 100 100 Oxygen O2 Source Room air PD MEDICAL DECISION MAKING - ED course Complexity details: considered differential, d/w patient ED course: I discussed with the patient that she had a very full work-up when she was seen here yesterday, and there is not really anything else to be added to that. Patient has a longstanding history of poorly controlled chronic pain and has failed nonnarcotic treatment. As such, she is Been on a heavy regimen of opioids, including morphine and Dilaudid orally, plus Vicodin. I discussed with the patient that we can give her doses of pain medication in the emergency department but given that she is already on the regimen she has at home, there is not a lot we can do to augment that. The patient has been given doses of Dilaudid, Toradol, and Zofran in the emergency department. She has clarified that the stated naproxen "allergy" is actually more of an adverse reaction, which causes her stomach to be upset. She does not have any allergy symptoms such as rash or oropharyngeal swelling. I have encouraged the patient to make an appoint with her primary care physician soon as possible to follow-up. She should at that time discuss getting plugged back in with chronic pain specialist. Likely, some degree of physical conditioning would help with this patient's chronic pain, as would weight loss. The patient does not demonstrate any emergent signs/symptoms associated with back pain and is stable for discharge home. Departure - Departure Disposition: 01 Home, Self Care Clinical Impression: Acute exacerbation of chronic low back pain Condition: Stable Instructions: ED Spasm Back No Trauma Prescriptions: Ondansetron Odt [Zofran] 4 mg TL Q6H PRN #10 tablet PRN Reason: Nausea / Vomiting Comments: Extensive work-up yesterday did not show any acute cause of your back pain. Most likely, this is an exacerbation of your chronic arthritis and low back issues. Additionally, having fibromyalgia amplifies the sense of pain, and furthermore, you are on a very heavy-hitting pain regimen at home, as far as narcotics. This limits options to increase your pain management at home, because you are already on so much pain medication and you have a high tolerance for it. At this point in time, there is no definitive evidence of a urinary tract infection . This was not apparent on your urinalysis yesterday. Since you have been started on the antibiotics, you may finish them up. Please call to make an appointment with your primary doctor to discuss getting a chronic pain specialist who can help fine-tune your pain management at home a little better. You may take the medication for nausea, as needed.
[2020-09-17] MEDS ORDERED: ONDANSETRON ODT 4 MG TABLET TL STA (04:48)
[2020-09-17] MEDS ORDERED: KETOROLAC 60 MG/2 ML VIAL IM STA (04:48)
[2020-09-17] MEDS ORDERED: HYDROmorphone 1 MG/ML CARPUJECT IM STA (04:48)
[2020-09-17] MEDS ORDERED: PROMETHAZINE 25 MG/1 ML VIAL IM STA (05:38)
[2020-09-17 07:07] VITALS: BP 135/82
== END 2020-09-17 07:07 | disposition home or self-care (01) ==
LOC: EDUNIT# → ED 03:59
DX: M54.5 Low back pain (principal); G89.29 Other chronic pain; M79.7 Fibromyalgia; Z66 Do not resuscitate
CPT/HCPCS: 96372; 99283; 99285; J1170; Q0162

== ENCOUNTER 2021-04-10 16:27 | Outpatient (CLI) | payer MEDICARE | END 2021-04-10 16:28 | disposition critical access hospital (66) | LOC: EMS 16:27 | DX: S09.90XA Unspecified injury of head, initial encounter (principal); R51.9 Headache, unspecified; M79.631 Pain in right forearm; W18.30XA Fall on same level, unspecified, initial encounter; Y92.002 Bathroom of unspecified non-institutional (private) residence as the place of occurrence of the external cause | CPT/HCPCS: A0425; A0429 ==

== ENCOUNTER 2021-04-10 16:52 | Emergency (ER) | payer MEDICARE ==
--- NOTE | 2021-04-10 17:39 | ED Physician Documentation ---
History of Present Illness - Stated complaint Stated Complaint: GLF - Chief complaint Chief Complaint: Trauma Hd/Nk - Additonal information Additional information: 70-year-old female is brought to the emergency department after a ground-level fall yesterday evening. Most of the history is provided from her daughter. Patient has a history of previous CVA in 2011. She does have some residual left-sided weakness. Due to chronic pain in the back shoulders and knees she is on a heavy narcotic regimen that includes morphine, Vicodin, Valium and trazodone. Patient is typically able to ambulate with the assistance of a cane or walker. Last night she was transferring from bed to commode and slipped and fell hitting the bed. She has a large bruise on her right elbow and above her right eye. She denies losing consciousness but is not able to meaningfully participate in the history. She is not anticoagulated. Patient is reporting pain in the right elbow as well as the left knee. Patient's daughter reports severe tricompartmental arthritis in both knees as well as severe arthritis in the shoulders. She states "it is a miracle my mom can even walk." Review of Systems Unable to obtain: Confused, Other (hx obtained from daughter) Constitutional: denies: Fever, Chills Eyes: denies: Loss of vision, Decreased vision Ears: reports: Reviewed and negative Nose: reports: Reviewed and negative Cardiac: denies: Chest pain / pressure, Palpitations Respiratory: reports: Reviewed and negative GI: denies: Abdominal Pain, Nausea, Vomiting : denies: Dysuria, Frequency Skin: reports: Abrasion (s) (Right elbow left knee) Musculoskeletal: reports: Extremity pain Neurologic: reports: Generalized weakness, Focal weakness (Baseline left-sided weakness), Confused PD PAST MEDICAL HISTORY - Past Medical History Cardiovascular: Hypertension, High cholesterol Respiratory: None Neuro: CVA, Headaches Endocrine/Autoimmune: HyPOthyroidism GI: None MESSAGE CLERK: None : None HEENT: None Psych: Depression, Anxiety, Panic attacks Musculoskeletal: Osteoarthritis Derm: None - Past Surgical History Past Surgical History: Yes General: Appendectomy Ortho: Arthroscopic surgery /MESSAGE CLERK: Dilation and currettage, Tubal ligation - Present Medications Home Medications: Ambulatory Orders Medication Instructions Recorded Confirmed HYDROcod/ACETAM 5/325 [Vicodin 1 - 2 ea PO TID 02/05/13 04/10/21 5/325] Levothyroxine [Synthroid] 125 mcg PO QDAC 02/05/13 04/10/21 traZODone [Desyrel] 200 mg PO DAILY PM 10/24/13 04/10/21 Aspirin 325 mg PO DAILY 11/15/13 04/10/21 Ondansetron [Zofran] 4 mg PO Q6H PRN #10 tablet 01/02/14 04/10/21 Famotidine [Pepcid] 20 mg PO ONCE #30 tablet 07/06/18 04/10/21 Morphine ER [Morphine Sulfate ER] 30 mg PO TID 04/10/21 04/10/21 cephALEXin [Keflex] 500 mg PO BID #14 04/10/21 diazePAM [Valium] 2 mg PO BID PRN 04/10/21 04/10/21 - Allergies Allergies/Adverse Reactions: Allergies Allergy/AdvReac Type Severity Reaction Status Date / Time naproxen [From Naprosyn] Allergy Mild Unknown Verified 04/10/21 16:57 - Social History Does the pt smoke?: No Smoking Status: Never smoker Does the pt drink ETOH?: No Does the pt have substance abuse?: No - Immunizations Immunizations are current?: Yes - POLST Patient has POLST: Yes POLST Status: DNR PD ED PE EXPANDED - General General: Alert - HEENT HEENT: EOMI, Other (Large bruise and mild abrasion above the right eyebrow.). No: Atraumatic - Neck Neck: Supple w/out meningeal sx. No: Adenopathy, Soft tissue TTP, Bony TTP, Limited ROM - Cardiac Cardiac: Regular Rate, Radial strong equal, Pedal strong equal, Cap refill < 2 sec. No: Murmur Present - Respiratory Respiratory: Clear to ausultation janny. No: Distress, Labored - Abdomen Abdomen: Normal Bowel sounds. No: Tender to palpation - Derm Derm: Abrasion (s), Bruising (Right elbow left knee) - Extremities Extremities: Right forearm (Large bruise on the dorsum of the right elbow/forearm. No swelling. No skin tear. Patient is able to normally supinate and pronate the forearm. Normal flexion extension of the elbow.), Left knee (Abrasion and bruise on the medial left knee. Normal flexion and extension.) - Neuro Neuro: Confused, CNII-XII intact - GCS Eye Opening: Spontaneous Motor: Obeys Commands Verbal: Oriented Total: 15 Results - Vitals Vitals: Vital Signs - 24 hr 04/10/21 04/10/21 16:57 20:52 Temperature 36.4 C L Heart Rate 65 75 Respiratory 18 14 Rate Blood Pressure 111/72 103/61 O2 Saturation 94 100 Oxygen O2 Source Room air - Labs Labs: Laboratory Tests 04/10/21 04/10/21 04/10/21 18:10 18:10 20:48 WBC 18.2 H RBC 4.55 Hgb 14.9 Hct 45.1 MCV 99.1 H MCH 32.7 H MCHC 33.0 RDW 13.4 Plt Count 153 MPV 10.3 Neut # (Auto) 14.2 H Lymph # (Auto) 2.5 [place] # (Auto) 1.4 H Eos # (Auto) 0.0 Baso # (Auto) 0.1 Absolute Nucleated RBC 0.00 Nucleated RBC % 0.0 Sodium 141 Potassium 3.4 L Chloride 98 L Carbon Dioxide 31 Anion Gap 12.0 BUN 28 H Creatinine 1.5 H Estimated GFR (MDRD) 34 L Glucose 121 H Calcium 9.5 Total Bilirubin 1.6 H AST 23 ALT 13 Alkaline Phosphatase 56 Total Protein 7.6 Albumin 4.4 Globulin 3.2 Albumin/Globulin Ratio 1.4 Lipase 36 Urine Color DARK YELLOW Urine Clarity CLOUDY Urine pH 5.5 Ur Specific [place] >=1.030 H Urine Protein 30 H Urine Glucose (UA) NEGATIVE Urine Ketones NEGATIVE Urine Occult Blood TRACE-INTA Urine Nitrite NEGATIVE Urine Bilirubin NEGATIVE Urine Urobilinogen 0.2 (NORMAL) Ur Leukocyte Esterase SMALL H Urine RBC 0-5 Urine WBC >25 H Ur Squamous Epith Cells MANY Squamous H Urine Bacteria Many H Urine Casts 6-10 Hyaline Casts Urine Mucus Moderate Strands Ur Microscopic Review INDICATED Urine Culture Comments NOT INDICATED - Rads (name of study) cervical ct Radiology: Final report received (No fracture. 4.6 cm right thyroid nodule.) ct head Radiology: Final report received (No acute intracranial disease process) cxr Radiology: Final report received (No acute Cardiopulmonary disease process) right elbow xr Radiology: Final report received (No fracture. No osseous lesion.) left knee Radiology: Final report received (No fracture no osseous lesion.) PD MEDICAL DECISION MAKING - ED course Complexity details: reviewed results, re-evaluated patient, d/w patient, d/w family ED course: 71-year-old female presents to the emergency department after ground-level fall last night in which she fell transferring from the commode to the bed. She did sustain an abrasion above her right eye on her right elbow and left knee. CT the head unremarkable. X-ray of the elbow and knee also unremarkable. Patient is able to ambulate with a walker. Screening labs do show a significant leukocytosis but she has no fevers there is no abdominal pain elicited and chest x-ray is free of focal opacity. Urinalysis was checked and she does have a urinary tract infection. Ceftriaxone 1 g was given here in the ER and patient will be started on Keflex at home. Given lack of fevers flank pain or abdominal tenderness I doubt pyelonephritis. We do note moderate dehydration as elevated as evidenced by the elevated BUN and creatinine. Patient will be repleted with 2 L of crystalloid. I have discussed the findings with the patient and her daughter. Patient is to follow-up with her primary care doctor later this week for recheck of her BUN and creatinine. I am also requesting that they consider evaluation of the number of narcotics that she takes as this is most likely contributing to her recurrent falls. There is an incidental finding of a right thyroid nodule which the daughter is aware of and they are working to get an outpatient ultrasound. Departure - Departure Disposition: 01 Home, Self Care Clinical Impression: Fall from ground level, Dehydration, Elevated BUN, Elevated serum creatinine, Abrasion, Narcotic dependence, Right thyroid nodule UTI (urinary tract infection) Qualifiers: Urinary tract infection type: acute cystitis Hematuria presence: without hematuria Qualified Code(s): N30.00 - Acute cystitis without hematuria Condition: Stable Record reviewed to determine appropriate education?: Yes Follow-Up: Madeline Cramer MD [Primary Care Provider] - Prescriptions: cephALEXin [Keflex] 500 mg PO BID #14 Comments: Rosamaria was seen in the ER today after ground-level fall last night from the bed. As we discussed she is at high risk for falls because of her previous strokes as well as her narcotic dependence. I do encourage you to discuss the number of narcotics that she is taking with her primary care doctor and determine if there is a way to use less narcotics in the management of her symptoms. The CT of her head did not show any bruising or bleeding. CT of her cervical spine was unremarkable for breaks or fractures though there is the noted right thyroid nodule which were previously aware of. It is recommend that you get an ultrasound of this nodule as soon as you are able. Her chest x-ray, right elbow x-ray and left knee x-ray were all also unremarkable. I am her labs today do show that she is likely moderately dehydrated she has an elevated BUN and creatinine. This may have contributed to her falls. We did give her 2 L of IV fluids here in the emergency department. I would like you to repeat her electrolyte panel with her primary care doctor later this week. Her blood count was normal though she did have an elevated white count. Her urine does show a urinary tract infection. Please fill the prescription for the Kefle x and give to her twice daily for the next week. If at any point you feel that mom is not doing well, she develops fevers, has recurrent falls or any other worrisome symptoms please return immediately to the ER.
[2021-04-10 18:19] LABS: BASOPHILS # (AUTO) 0.1 10^3/uL (0.0-0.1); BASOPHILS % (AUTO) 0.3 %; EOSINOPHILS % (AUTO) 0.2 %; HCT - HEMATOCRIT 45.1 % (37.0-47.0); HGB - HEMOGLOBIN 14.9 g/dL (12.0-16.0); LYMPHOCYTES # (AUTO) 2.5 10^3/uL (1.5-3.5); LYMPHOCYTES % (AUTO) 13.5 %; MEAN CORPUSCULAR HEMOGLOBIN 32.7 pg (27.0-31.0); MEAN CORPUSCULAR VOLUME 99.1 fL (81.0-99.0); MEAN PLATELET VOLUME 10.3 fL (7.9-10.8); MONOCYTES # (AUTO) 1.4 10^3/uL (0.0-1.0); MONOCYTES % (AUTO) 7.9 %; NEUTROPHILS # (AUTO) 14.2 10^3/uL (1.5-6.6); NEUTROPHILS % (AUTO) 77.7 %; PLT - PLATELET COUNT 153 10^3/uL (130-450); RED BLOOD COUNT 4.55 10^6/uL (4.20-5.40); RED CELL DISTRIBUTION WIDTH 13.4 % (12.0-15.0); WHITE BLOOD COUNT 18.2 x10^3/uL (4.8-10.8)
--- NOTE | 2021-04-10 18:21 | CT Report ---
PROCEDURE: CERVICAL SPINE WO INDICATIONS: glf TECHNIQUE: Noncontrast 3 mm thick sections acquired from the skull base to the T4 level. Sagittal and coronal r eformats were then constructed. For radiation dose reduction, the following was used: automated exp osure control, adjustment of mA and/or kV according to patient size. COMPARISON: None. FINDINGS: Image quality: Excellent. Bones: No fractures or dislocations. Visualized superior ribs are intact. Spine degenerative disc d isease and facet arthropathy are noted. Soft tissues: Prevertebral soft tissues are normal in thickness. No paravertebral hematomas. No ap ical pneumothoraces. 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 4.6 cm right thyroid nodule which is causing mass effect on the cervical trachea. IMPRESSION: 1. No fracture. No acute osseous lesion. If there is continued clinical concern for pathology, then M RI should be considered for further evaluation. 2. 4.6 cm right thyroid nodule. Recommend thyroid ultrasound for definitive characterization when cli nically feasible. Reviewed by: Debi Turner MD, PhD on 04/10/2021 6:20 PM PDT Approved by: Debi Turner MD, PhD on 04/10/2021 6:20 PM PDT Station ID: [id number]
--- NOTE | 2021-04-10 18:24 | CT Report ---
PROCEDURE: HEAD WO INDICATIONS: glf; bruise pam chavez TECHNIQUE: Noncontrast 4.5 mm thick angled axial sections acquired from the foramen magnum to the vertex. For r adiation dose reduction, the following was used: automated exposure control, adjustment of mA and/or kV according to patient size. COMPARISON: 12/20/2019. FINDINGS: Image quality: Excellent. CSF spaces: Basal cisterns are patent. No extra-axial fluid collections. The ventricles are symmet topher in size and shape. Brain: No intracranial bleeds or masses. Chronic bilateral occipital lobe infarcts. Chronic left fro ntal lobe infarct. There is cerebral volume loss for age, with resultant ventricular and sulcal promi nence. There are periventricular and deep white matter chronic small vessel ischemic changes. Skull and face: Calvarium and visualized facial bones appear intact, without suspicious lesions. Sinuses: Visualized sinuses and mastoids are clear. IMPRESSION: No acute intracranial disease process. Reviewed by: Debi Turner MD, PhD on 04/10/2021 6:23 PM PDT Approved by: Debi Turner MD, PhD on 04/10/2021 6:23 PM PDT Station ID: [id number]
--- NOTE | 2021-04-10 18:26 | XRAY Report ---
PROCEDURE: Chest 1 View X-Ray INDICATIONS: chest pain TECHNIQUE: One view of the chest was acquired. COMPARISON: 07/06/2018 and 07/15/2019 FINDINGS: Surgical changes and devices: None. Lungs and pleura: No pleural effusions or pneumothorax. Lungs are clear. Mediastinum: Mediastinal contours appear normal. Heart size is normal. Bones and chest wall: Severe shoulder osteoarthritis, left greater than right, stable compared to pr ior exams. No suspicious bony lesions. Overlying soft tissues appear unremarkable. No displaced rib fractures. IMPRESSION: No acute cardiopulmonary disease process. Reviewed by: Debi Turner MD, PhD on 04/10/2021 6:24 PM PDT Approved by: Dbei Turner MD, PhD on 04/10/2021 6:24 PM PDT Station ID: [email or web address]
--- NOTE | 2021-04-10 18:26 | XRAY Report ---
PROCEDURE: Elbow 2 View RT INDICATIONS: glf; bruise TECHNIQUE: 3 views of the elbow were acquired. COMPARISON: None FINDINGS: Bones: No fractures or dislocations. No suspicious bony lesions. Soft tissues: No elbow joint effusion. No suspicious soft tissue calcifications. IMPRESSION: No fracture. No osseous lesion. If there are persistent symptoms or continued clinical concern for pa thology, then repeat plain film radiographs (7-10 days) or advanced imaging (CT, MR, bone scan) shoul d be considered for further evaluation. Reviewed by: Debi Turner MD, PhD on 04/10/2021 6:25 PM PDT Approved by: Debi Turner MD, PhD on 04/10/2021 6:25 PM PDT Station ID: [email or web address]
--- NOTE | 2021-04-10 18:27 | XRAY Report ---
PROCEDURE: Knee 2 View LT INDICATIONS: bruise after fall TECHNIQUE: 2 views of the left knee(s) were acquired. COMPARISON: None. FINDINGS: Bones: No fractures or dislocations. No suspicious bony lesions. Moderate tricompartmental osteoart hritis. Soft tissues: No joint effusion. No suspicious soft tissue calcifications. IMPRESSION: No fracture. No acute osseous lesion. If there persistent symptoms or continued clinical concern for pathology, then repeat plain film radiographs (7-10 days) or advanced imaging (CT, MR, bone scan) allegra uld be considered for further evaluation. Reviewed by: Debi Turner MD, PhD on 04/10/2021 6:25 PM PDT Approved by: Debi Turner MD, PhD on 04/10/2021 6:25 PM PDT Station ID: [email or web address]
[2021-04-10 18:31] LABS: ALBUMIN 4.4 g/dL (3.2-5.5); ALBUMIN/GLOBULIN RATIO 1.4 (1.0-2.2); BILIRUBIN,TOTAL 1.6 mg/dL (0.2-1.0); CALCIUM 9.5 mg/dL (8.5-10.3); CREATININE 1.5 mg/dL (0.4-1.0); POTASSIUM 3.4 mmol/L (3.5-5.0); TOTAL PROTEIN 7.6 g/dL (6.7-8.2)
[2021-04-10] MEDS ORDERED: SODIUM CHLORIDE 0.9% 1,000 ML IV STA ×2 (19:30)
[2021-04-10 21:05] LABS: GLUCOSE, URINE (UA) NEGATIVE (NEGATIVE); KETONES,URINE (UA) NEGATIVE (NEGATIVE); LEUKOCYTE ESTERASE, URINE SMALL (NEGATIVE); NITRITE,URINE NEGATIVE (NEGATIVE); OCCULT BLOOD,URINE TRACE-INTA (NEGATIVE); PH,URINE 5.5 PH (5.0-7.5); PROTEIN,URINE 30 mg/dL (NEGATIVE); UROBILINOGEN,URINE 0.2 (NORMAL) E.U./dL (NORMAL)
[2021-04-10 21:10] LABS: CLARITY,URINE CLOUDY (CLEAR)
[2021-04-10 21:11] LABS: BILIRUBIN,URINE NEGATIVE (NEGATIVE); ICTOTEST,URINE NEGATIVE
[2021-04-10 21:18] LABS: BACTERIA,URINE Many /HPF (None Seen); CASTS, URINE 6-10 Hyaline Casts /LPF; MUCUS,URINE Moderate Strands; RBC,URINE 0-5 /HPF (0-5); SQUAMOUS EPITHELIAL CELL,UR MANY Squamous (<= Few); WBC,URINE >25 /HPF (0-5)
[2021-04-10] MEDS ORDERED: cefTRIAXone 1 GM VIAL IVP STA (21:27)
[2021-04-10 22:13] VITALS: BP 153/85
== END 2021-04-10 22:23 | disposition home or self-care (01) ==
LOC: ED 16:52
DX: N30.00 Acute cystitis without hematuria (principal); E86.0 Dehydration; W18.11XA Fall from or off toilet without subsequent striking against object, initial encounter; R79.89 Other specified abnormal findings of blood chemistry; Z91.81 History of falling; E04.1 Nontoxic single thyroid nodule; F19.20 Other psychoactive substance dependence, uncomplicated; I10 Essential (primary) hypertension
CPT/HCPCS: 36415; 80053; 81001; 81003; 83690; 85025; 87086; 96361; 96374; 99284

== ENCOUNTER 2021-04-27 11:19 | Outpatient (CLI) | payer MEDICARE | END 2021-04-27 11:20 | disposition critical access hospital (66) | LOC: EMS 11:19 | DX: S00.212A Abrasion of left eyelid and periocular area, initial encounter (principal); S51.812A Laceration without foreign body of left forearm, initial encounter; W06.XXXA Fall from bed, initial encounter; Y92.003 Bedroom of unspecified non-institutional (private) residence as the place of occurrence of the external cause | CPT/HCPCS: A0425; A0429 ==

== ENCOUNTER 2021-04-27 11:39 | Emergency (ER) | payer MEDICARE ==
--- NOTE | 2021-04-27 12:02 | ED Physician Documentation ---
History of Present Illness - Stated complaint Stated Complaint: GLF - Chief complaint Chief Complaint: Trauma Hd/Nk - Additonal information Additional information: 71-year-old female comes emergency department for evaluation after ground-level fall this a.m. She reports that she was using the toilet attempted to get toilet paper and fell forward striking her head on the ground. There was no loss of consciousness. However she was unable to get up on her own and summoned EMS. She has a skin tear on her left forearm, and abrasion of her left cheek and is complaining of neck and low back pain. No paresthesias. She is not anticoagulated. She denies that she had a syncopal episode however she is unable to describe to me exactly why she fell. She does have a history of previous CVA in 2011 with some mild left-sided weakness. But she also has a chronic pain in the back shoulders and knees and is on morphine as well as Vicodin. Patient reports to me that she is essentially bedbound. After her last visit in the emergency department for which I saw her she has been staying with her daughter. She reports that they do not have help at home and care is becoming increasingly difficult. She does not have a wheelchair. She is unsure if she can safely return to her daughters home without significant assistance. Pt is tearful, crying; asking for social work assistance Review of Systems Constitutional: denies: Fever, Chills Eyes: denies: Loss of vision Ears: reports: Reviewed and negative Nose: reports: Reviewed and negative Throat: reports: Reviewed and negative Cardiac: denies: Chest pain / pressure, Palpitations Respiratory: denies: Dyspnea, Cough GI: denies: Abdominal Pain, Nausea, Vomiting : denies: Dysuria, Frequency Skin: reports: Abrasion (s) (Left forearm. Cheek). denies: Rash, Lesions Musculoskeletal: reports: Neck pain, Back pain Neurologic: reports: Generalized weakness, Headache, Head injury. denies: Focal weakness, Numbness, Difficulty speaking, Syncope PD PAST MEDICAL HISTORY - Past Medical History Cardiovascular: Hypertension, High cholesterol Respiratory: None Neuro: CVA, Headaches Endocrine/Autoimmune: HyPOthyroidism GI: None RUG CLIPPER: None : None HEENT: None Psych: Depression, Anxiety, Panic attacks Musculoskeletal: Osteoarthritis Derm: None - Past Surgical History Past Surgical History: Yes General: Appendectomy Ortho: Arthroscopic surgery /RUG CLIPPER: Dilation and currettage, Tubal ligation - Present Medications Home Medications: Ambulatory Orders Medication Instructions Recorded Confirmed HYDROcod/ACETAM 5/325 [Vicodin 1 - 2 ea PO TID 02/05/13 04/27/21 5/325] Levothyroxine [Synthroid] 125 mcg PO QDAC 02/05/13 04/27/21 traZODone [Desyrel] 200 mg PO DAILY PM 10/24/13 04/27/21 Aspirin 325 mg PO DAILY 11/15/13 04/27/21 Ondansetron [Zofran] 4 mg PO Q6H PRN #10 tablet 01/02/14 04/27/21 Famotidine [Pepcid] 20 mg PO ONCE #30 tablet 07/06/18 04/27/21 Morphine ER [Morphine Sulfate ER] 30 mg PO TID 04/10/21 04/27/21 cephALEXin [Keflex] 500 mg PO BID #14 04/10/21 04/27/21 diazePAM [Valium] 2 mg PO BID PRN 04/10/21 04/27/21 - Allergies Allergies/Adverse Reactions: Allergies Allergy/AdvReac Type Severity Reaction Status Date / Time naproxen [From Naprosyn] Allergy Mild Unknown Verified 04/27/21 11:50 - Social History Does the pt smoke?: No Smoking Status: Never smoker Does the pt drink ETOH?: No Does the pt have substance abuse?: No - Immunizations Immunizations are current?: Yes - POLST Patient has POLST: Yes POLST Status: DNR PD ED PE EXPANDED - General General: Alert, Other (obese) - Neck Neck: Supple w/out meningeal sx, Soft tissue TTP (left soft tissue ttp; no midline tenderness), Limited ROM. No: Adenopathy, Bony TTP - Cardiac Cardiac: Regular Rate, Radial strong equal, Pedal strong equal, Cap refill < 2 sec - Respiratory Respiratory: Clear to ausultation janny. No: Distress, Labored - Abdomen Abdomen: Normal Bowel sounds, Tender to palpation - Back Back: Other (Limited exam given body habitus and bedbound status. Generalized tenderness of the lower lumbar spine without crepitus or deformity. No ecchymosis or step-off) - Derm Derm: Normal color, Warm and dry. No: Rash - Extremities Extremities: Normal, Pedal edema bilateral. No: Deformity, Tenderness - Neuro Neuro: Alert and Oriented X 3, CNII-XII intact - GCS Eye Opening: Spontaneous Motor: Obeys Commands Verbal: Oriented Total: 15 Results - Vitals Vitals: Vital Signs - 24 hr 04/27/21 04/27/21 11:46 12:38 Temperature 36.4 C L 36.6 C Heart Rate 66 60 Respiratory 18 14 Rate Blood Pressure 161/97 H 151/72 H O2 Saturation 98 99 Oxygen O2 Source Room air - Labs Labs: Laboratory Tests 04/27/21 04/27/21 04/27/21 12:17 12:17 12:17 WBC 8.2 RBC 4.25 Hgb 13.7 Hct 42.1 MCV 99.1 H MCH 32.2 H MCHC 32.5 RDW 13.2 Plt Count 149 MPV 9.7 Neut # (Auto) 4.8 Lymph # (Auto) 2.4 [place] # (Auto) 0.8 Eos # (Auto) 0.2 Baso # (Auto) 0.0 Absolute Nucleated RBC 0.00 Nucleated RBC % 0.0 Sodium 138 Potassium 4.4 Chloride 96 L Carbon Dioxide 33 H Anion Gap 9.0 BUN 32 H Creatinine 0.8 Estimated GFR (MDRD) 71 L Glucose 91 Calcium 9.3 Total Bilirubin 0.7 AST 15 ALT < 10 L Alkaline Phosphatase 55 Total Protein 6.6 L Albumin 3.4 Globulin 3.2 Albumin/Globulin Ratio 1.1 Lipase 32 TSH 4.87 - Rads (name of study) lumbar CT Radiology: Final report received (No acute fractures are seen. Multiple levels of prominent lumbar spine degenerative changes can be seen) CT head Radiology: Final report received (No intracranial hemorrhage is seen. No significant intracranial abnormality is seen. Remote stable left frontal lobe infarction. No displaced calvarial fracture can be seen.) Cervical CT Radiology: Final report received (Stable study demonstrating prominent degenerative changes without acute fracture. Cystic-appearing right thyroid nodule is seen.) PD MEDICAL DECISION MAKING - ED course Complexity details: reviewed results, considered differential, d/w patient, d/w family ED course: 71-year-old female who has a history of previous CVA with left-sided deficits, chronic opioid use, recurrent falls returns to the emergency department after ground-level fall this morning. She reports that she was reaching for toilet paper when she fell forward striking the left side of her head. She does have a superficial tear on her left forearm as well as an abrasion on her cheek. She is reporting head neck pain as well as low back pain. CT imaging of the head neck and lumbar spine are unremarkable though she does have significant degenerative changes. Screening labs today are without acute worrisome abnormality. Given the history of recurrent falls the patient was seen by social work. Social work did speak with the patient and patient's daughter via phone. At this time they are able to adequately care for her at home though they are very interested in further community resources to help in the care of Rosamaria. Though it may be coming to a point in the future where they are unable to adequately care for her and may require fci or assisted living. I did discuss the CT imaging results as well as labs with the daughter on the phone patient feels reassured knowing that she can return to her daughter's care. She will be sent via BLS given inability to ambulate otherwise. Approp artem AARON form filled out. Departure - Departure Disposition: 01 Home, Self Care Clinical Impression: Fall from ground level, Cheek abrasion, non-infected, Weakness of left side of body, Narcotic dependence Skin tear of forearm without complication Qualifiers: Encounter type: initial encounter Laterality: left Qualified Code(s): S51.812A - Laceration without foreign body of left forearm, initial encounter Opioid dependence Qualifiers: Substance use status: uncomplicated Qualified Code(s): F11.20 - Opioid dependence, uncomplicated Condition: Stable Record reviewed to determine appropriate education?: Yes Comments: Rosamaria was seen in the emergency department today after a ground-level fall. The CT of her head, neck and lumbar spine did not show any broken bones though she does have significant degenerative disc disease. Rosamaria was seen by her social sciences chair today. A referral is being made for [facility] to evaluate whether she would benefit from further assistance at home. It is important to discuss this ED visit with her primary care provider. If at any point she developed sudden severe headache, slurred speech new onset weakness or any other emergent medical conditions and please return immediately to the ER for a second evaluation.
[2021-04-27] MEDS ORDERED: SODIUM CHLORIDE 0.9% 1,000 ML IV STA (12:03)
[2021-04-27] MEDS ORDERED: MORPHINE 2 MG/ML CARPUJECT IVP STA ×2 (12:10→13:54)
[2021-04-27 12:23] LABS: BASOPHILS % (AUTO) 0.5 %; EOSINOPHILS # (AUTO) 0.2 10^3/uL (0.0-0.7); EOSINOPHILS % (AUTO) 2.9 %; HCT - HEMATOCRIT 42.1 % (37.0-47.0); HGB - HEMOGLOBIN 13.7 g/dL (12.0-16.0); LYMPHOCYTES # (AUTO) 2.4 10^3/uL (1.5-3.5); LYMPHOCYTES % (AUTO) 29.2 %; MEAN CORPUSCULAR HEMOGLOBIN 32.2 pg (27.0-31.0); MEAN CORPUSCULAR HGB CONC 32.5 g/dL (32.0-36.0); MEAN CORPUSCULAR VOLUME 99.1 fL (81.0-99.0); MEAN PLATELET VOLUME 9.7 fL (7.9-10.8); MONOCYTES # (AUTO) 0.8 10^3/uL (0.0-1.0); MONOCYTES % (AUTO) 9.1 %; NEUTROPHILS # (AUTO) 4.8 10^3/uL (1.5-6.6); NEUTROPHILS % (AUTO) 58.1 %; PLT - PLATELET COUNT 149 10^3/uL (130-450); RED BLOOD COUNT 4.25 10^6/uL (4.20-5.40); RED CELL DISTRIBUTION WIDTH 13.2 % (12.0-15.0); WHITE BLOOD COUNT 8.2 x10^3/uL (4.8-10.8)
[2021-04-27 12:40] LABS: ALBUMIN 3.4 g/dL (3.2-5.5); ALBUMIN/GLOBULIN RATIO 1.1 (1.0-2.2); ALKALINE PHOSPHATASE 55 IU/L (42-121); ALT ALANINE AMINOTRANSFERASE < 10 IU/L (10-60); AST ASPARTATE AMINOTRANSFERASE 15 IU/L (10-42); BILIRUBIN,TOTAL 0.7 mg/dL (0.2-1.0); BUN - BLOOD UREA NITROGEN 32 mg/dL (6-20); CALCIUM 9.3 mg/dL (8.5-10.3); CARBON DIOXIDE - CO2 33 mmol/L (21-32); CHLORIDE 96 mmol/L (101-111); CREATININE 0.8 mg/dL (0.4-1.0); GFR - MDRD 71 (>89); GLUCOSE 91 mg/dL (70-100); LIPASE 32 U/L (22-51); POTASSIUM 4.4 mmol/L (3.5-5.0); SODIUM 138 mmol/L (135-145); TOTAL PROTEIN 6.6 g/dL (6.7-8.2)
--- NOTE | 2021-04-27 13:16 | CT Report ---
PROCEDURE: HEAD WO INDICATIONS: GLF; large left cheek abrasion TECHNIQUE: Noncontrast 4.5 mm thick angled axial sections acquired from the foramen magnum to the vertex. For r adiation dose reduction, the following was used: automated exposure control, adjustment of mA and/or kV according to patient size. COMPARISON: 04/10/2021, 12/20/2019, and 07/15/2019. Correlation is also made with the accompanying CT e xaminations, 04/27/2021. FINDINGS: Image quality: Excellent. CSF spaces: Basal cisterns are patent. No extra-axial fluid collections. Ventricles are normal in size and shape. Brain: No midline shift. No intracranial masses or hemorrhage. Lubin-white matter interface is norm al. There is made of left frontal lobe focal volume loss, which is stable compared to the prior exam ination. Skull and face: Calvarium and visualized facial bones are intact, without suspicious lesions. Hyper ostosis frontalis is incidentally noted, which is not frankly abnormal for a female patient of this a ge. Sinuses: Visualized sinuses and mastoids are clear. IMPRESSION: No intracranial hemorrhage is seen. No significant intracranial abnormality is seen. No displaced calvarial fracture can be seen. Remote, stable left frontal lobe infarction. Reviewed by: Devaughn Escamilla MD on 04/27/2021 12:15 PM DAVIN Approved by: Devaughn Escamilla MD on 04/27/2021 12:15 PM DAVIN Station ID: [id number]
--- NOTE | 2021-04-27 13:19 | CT Report ---
PROCEDURE: CERVICAL SPINE WO INDICATIONS: GLF; neck pain TECHNIQUE: Noncontrast 3 mm thick sections acquired from the skull base to the T4 level. Sagittal and coronal r eformats were then constructed. For radiation dose reduction, the following was used: automated exp osure control, adjustment of mA and/or kV according to patient size. COMPARISON: 04/10/2021. Correlation is also made with the accompanying CT examinations, 04/27/2021. FINDINGS: Image quality: Excellent. Bones: No fractures or dislocations. Visualized superior ribs are intact. There is moderate to severe disc space narrowing seen at C4-C5, C5-C6, and C6-C7, with at least moder ate disc space narrowing seen at C3-C4 and C7-T1. Grade 1 anterolisthesis is seen at C7-T1. Posterior ly directed endplate osteophytes are seen, which are worst at the C6-C7 level. There is ossification of the posterior longitudinal ligament seen posterior to the C4 and C5 vertebral bodies. Soft tissues: Prevertebral soft tissues are normal in thickness. No paravertebral hematomas. No ap ical pneumothoraces. A cystic right thyroid nodule is again seen, which measures 4.5 cm. IMPRESSION: Stable study demonstrating prominent degenerative changes, without an acute fracture. There is ossification of the posterior longitudinal ligament seen posterior to the C4 and C5 vertebra l bodies. There is a cystic-appearing right thyroid nodule is seen. When clinically appropriate, please conside r thyroid ultrasound for further evaluation. Reviewed by: Devaughn Escamilla MD on 04/27/2021 12:18 PM DAVIN Approved by: Devaughn Escamilla MD on 04/27/2021 12:18 PM MINANCY Station ID: [id number]
--- NOTE | 2021-04-27 13:26 | CT Report ---
PROCEDURE: LUMBAR SPINE WO INDICATIONS: low back pain after fall TECHNIQUE: Noncontrast 3 mm thick sections acquired from the T12 level to the sacrum. Sagittal and coronal refo rmats were constructed. For radiation dose reduction, the following was used: automated exposure co ntrol, adjustment of mA and/or kV according to patient size. COMPARISON: Correlation is made with abdomen pelvis CT, 09/16/2020. Correlation is also made with the accompanying CT examinations, 04/27/2021. FINDINGS: Image quality: Excellent. Bones: No acute vertebral body compression fractures. No suspicious lytic or blastic bony lesions. Central spinal caliber is of normal overall caliber. No pars defects. S-shaped scoliosis is seen. There is minimal retrolisthesis seen at the L5-S1 level. T12-L1: Mild loss of disc height is seen. Mild disc bulge is seen. Bridging endplate osteophytes a re seen on the right side. No significant neural foraminal or central canal narrowing can be seen. L1-L2: Moderate to severe loss of disc height is seen on the right side. Vacuum disc phenomenon i s seen at this level. Bridging a plate osteophytes are seen on the right. Moderate facet hypertrop hy is seen. Associated hypertrophy of the ligamentum flavum can be seen. There is moderate to og re right-sided and at least moderate left-sided neuroforaminal narrowing seen. Moderate to severe nigel tral canal narrowing is seen. L2-L3: There is severe loss of disc height seen, with a degree of bony bridging seen at this level . Bridging anterior osteophytes are seen on the right. Moderate to prominent disc bulge is seen at th is level. There is moderate to severe bilateral neuroforaminal narrowing seen. Moderate to severe nigel tral canal narrowing is seen. L3-L4: Moderate to severe loss of disc height is seen. Endplate irregularity and sclerosis can be s een. Vacuum disc phenomenon is seen at this level. At least moderate disc bulge is seen. Moderate to prominent facet hypertrophy is seen. Associated hypertrophy of the ligamentum flavum can be seen. There is moderate to severe bilateral neuroforaminal narrowing seen. Moderate to severe central can al narrowing is seen. L4-L5: There is moderate to severe loss of disc height seen. There is a degree of vertebral body br idging seen at this level. Moderate to prominent disc bulge is seen, which is eccentric to the left. Bridging endplate osteophytes are seen on the left. There is moderate to severe bilateral neuroforami nal narrowing seen. Moderate to severe central canal narrowing is seen at this level. L5-S1: At least moderate loss of disc height is seen. Endplate irregularity and sclerosis can be se en. Vacuum disc phenomenon is seen at this level. At least moderate disc bulge is seen, which is eccentric to the right. At least moderate facet hypertrophy can be seen. There is moderate to severe bilateral neuroforaminal narrowing seen. Moderate central canal narrowing is seen. Soft tissues: No retroperitoneal masses or hematomas. Visualized aorta is normal in caliber. A prom inent right kidney parapelvic cyst is again seen. Within the [id number] of this study, no kidney s tones are seen. An apparent simple cyst can be seen along the posterior medial left kidney measuring 16 mm. IMPRESSION: No acute fractures are seen. Multiple levels of prominent lumbar spine degenerative change can be seen. S-shaped scoliosis is seen. The previously seen right-sided kidney stones are not seen on the current study. Presumed simple right renal cysts are seen, including a prominent peripelvic cyst Reviewed by: Devaughn Escamilla MD on 04/27/2021 12:25 PM DAVIN Approved by: Devaughn Escamilla MD on 04/27/2021 12:25 PM DAVIN Station ID: [id number]
[2021-04-27] MEDS ORDERED: ONDANSETRON 4 MG/2 ML VIAL IVP STA (13:54)
[2021-04-27 14:09] VITALS: BP 157/75
== END 2021-04-27 14:25 | disposition home or self-care (01) ==
LOC: EDUNIT# → ED 11:39
DX: S51.812A Laceration without foreign body of left forearm, initial encounter (principal); S00.81XA Abrasion of other part of head, initial encounter; W18.12XA Fall from or off toilet with subsequent striking against object, initial encounter; I10 Essential (primary) hypertension; Z74.01 Bed confinement status; Z91.81 History of falling; F11.20 Opioid dependence, uncomplicated
CPT/HCPCS: 36415; 80053; 83690; 84443; 85025; 96361; 96374; 96375; 96376; 99284

== ENCOUNTER 2021-04-27 14:59 | Outpatient (CLI) | payer MEDICARE | END 2021-04-27 15:00 | disposition home or self-care (01) | LOC: EMS 14:59 | PROVIDERS: ATTEND Registered Nurse | DX: S00.81XA Abrasion of other part of head, initial encounter (principal); Z79.82 Long term (current) use of aspirin; W06.XXXA Fall from bed, initial encounter; Z74.01 Bed confinement status | CPT/HCPCS: A0425; A0428 ==

== ENCOUNTER 2021-07-03 16:47 | Emergency (ER) | payer MEDICARE ==
--- NOTE | 2021-07-03 17:09 | ED Physician Documentation ---
History of Present Illness - Stated complaint Stated Complaint: RT SIDE PX - Chief complaint Chief Complaint: Abd Pain - Additonal information Additional information: 71-year-old female presents emergency department for evaluation of right upper quadrant pain. Began a number of weeks ago but over the last few days has been more constant and worsening. She reports low-grade fevers at home perhaps up to 101. Some nausea and vomiting. Denies any diarrhea. She does have a history of right-sided nephrolithiasis though this feels distinctly different. She retains her gallbladder. History of previous CVA with residual left-sided deficits. Review of Systems Constitutional: reports: Fever Eyes: reports: Reviewed and negative Ears: reports: Reviewed and negative Throat: reports: Reviewed and negative Cardiac: reports: Reviewed and negative Respiratory: reports: Reviewed and negative GI: reports: Abdominal Pain, Nausea, Vomiting. denies: Constipation, Diarrhea : reports: Reviewed and negative Skin: reports: Reviewed and negative Musculoskeletal: reports: Reviewed and negative PD PAST MEDICAL HISTORY - Past Medical History Cardiovascular: Hypertension, High cholesterol Respiratory: None Neuro: CVA, Headaches Endocrine/Autoimmune: HyPOthyroidism GI: None CUSTOMS AGENT: None : None HEENT: None Psych: Depression, Anxiety, Panic attacks Musculoskeletal: Osteoarthritis Derm: None - Past Surgical History Past Surgical History: Yes General: Appendectomy Ortho: Arthroscopic surgery /CUSTOMS AGENT: Dilation and currettage, Tubal ligation - Present Medications Home Medications: Ambulatory Orders Medication Instructions Recorded Confirmed HYDROcod/ACETAM 5/325 [Vicodin 1 - 2 ea PO TID 02/05/13 04/27/21 5/325] Levothyroxine [Synthroid] 125 mcg PO QDAC 02/05/13 04/27/21 traZODone [Desyrel] 200 mg PO DAILY PM 10/24/13 04/27/21 Aspirin 325 mg PO DAILY 11/15/13 04/27/21 Ondansetron [Zofran] 4 mg PO Q6H PRN #10 tablet 01/02/14 04/27/21 Famotidine [Pepcid] 20 mg PO ONCE #30 tablet 07/06/18 04/27/21 Morphine ER [Morphine Sulfate ER] 30 mg PO TID 04/10/21 04/27/21 cephALEXin [Keflex] 500 mg PO BID #14 04/10/21 04/27/21 diazePAM [Valium] 2 mg PO BID PRN 04/10/21 04/27/21 - Allergies Allergies/Adverse Reactions: Allergies Allergy/AdvReac Type Severity Reaction Status Date / Time naproxen [From Naprosyn] Allergy Mild Unknown Verified 07/03/21 16:57 - Social History Does the pt smoke?: No Smoking Status: Never smoker Does the pt drink ETOH?: No Does the pt have substance abuse?: No - Immunizations Immunizations are current?: Yes - POLST Patient has POLST: Yes POLST Status: DNR PD ED PE EXPANDED - General General: Alert, In Pain, Other - HEENT HEENT: Atraumatic - Cardiac Cardiac: Regular Rate, Radial strong equal, Pedal strong equal, Cap refill < 2 sec - Respiratory Respiratory: Clear to ausultation janny. No: Distress, Labored - Abdomen Abdomen: Normal Bowel sounds, Rebound, RUQ - Derm Derm: Normal color, Warm and dry. No: Rash - Extremities Extremities: Normal, Deformity, Tenderness, Pedal edema bilateral (unchanged) - Neuro Neuro: Alert and Oriented X 3, CNII-XII intact Results - Vitals Vitals: Vital Signs - 24 hr 07/03/21 07/03/21 07/03/21 16:53 18:34 18:52 Temperature 36.8 C Heart Rate 59 L 62 64 Respiratory 16 18 18 Rate Blood Pressure 126/73 162/69 H 162/69 H O2 Saturation 99 100 95 07/03/21 19:43 Temperature Heart Rate 68 Respiratory 18 Rate Blood Pressure 158/88 H O2 Saturation 97 Oxygen O2 Source Room air - Labs Labs: Laboratory Tests 07/03/21 07/03/21 07/03/21 17:10 17:10 17:30 WBC 8.4 RBC 4.40 Hgb 14.4 Hct 43.8 MCV 99.5 H MCH 32.7 H MCHC 32.9 RDW 12.8 Plt Count 190 MPV 9.6 Neut # (Auto) 4.4 Lymph # (Auto) 3.0 Butts # (Auto) 0.7 Eos # (Auto) 0.3 Baso # (Auto) 0.1 Absolute Nucleated RBC 0.00 Nucleated RBC % 0.0 Sodium 142 Potassium 3.5 Chloride 101 Carbon Dioxide 31 Anion Gap 10.0 BUN 13 Creatinine 0.6 Estimated GFR (MDRD) 99 Glucose 98 Calcium 9.3 Total Bilirubin 1.0 AST 17 ALT 10 Alkaline Phosphatase 71 Total Protein 7.2 Albumin 3.8 Globulin 3.4 Albumin/Globulin Ratio 1.1 Lipase 28 Urine Color YELLOW Urine Clarity HAZY Urine pH 5.0 Ur Specific [place] 1.025 Urine Protein NEGATIVE Urine Glucose (UA) NEGATIVE Urine Ketones TRACE Urine Occult Blood TRACE-INTA Urine Nitrite NEGATIVE Urine Bilirubin NEGATIVE Urine Urobilinogen 0.2 (NORMAL) Ur Leukocyte Esterase MODERATE H Urine RBC 0-5 Urine WBC 6-10 H Ur Squamous Epith Cells MOD Squamous H Urine Bacteria Few Ur Microscopic Review INDICATED Urine Culture Comments NOT INDICATED - Rads (name of study) CT abd Radiology: Final report received (Mild intrahepatic and extrahepatic biliary dilation. Hepatic steatosis. 1.5 cm left adrenal nodule unchanged in size since 2019. 2.4 x 3.9 cm density in the right hilum unchanged. Scoliosis and degenerative changes in lumbar spine.) Abd US Radiology: Final report received (Nondiagnostic abdominal ultrasound secondary to body habitus. Visible CBD not dilated.)
[2021-07-03 17:16] LABS: BASOPHILS # (AUTO) 0.1 10^3/uL (0.0-0.1); BASOPHILS % (AUTO) 0.7 %; EOSINOPHILS # (AUTO) 0.3 10^3/uL (0.0-0.7); HCT - HEMATOCRIT 43.8 % (37.0-47.0); HGB - HEMOGLOBIN 14.4 g/dL (12.0-16.0); LYMPHOCYTES % (AUTO) 35.4 %; MEAN CORPUSCULAR HEMOGLOBIN 32.7 pg (27.0-31.0); MEAN CORPUSCULAR HGB CONC 32.9 g/dL (32.0-36.0); MEAN CORPUSCULAR VOLUME 99.5 fL (81.0-99.0); MEAN PLATELET VOLUME 9.6 fL (7.9-10.8); MONOCYTES # (AUTO) 0.7 10^3/uL (0.0-1.0); MONOCYTES % (AUTO) 8.4 %; NEUTROPHILS # (AUTO) 4.4 10^3/uL (1.5-6.6); NEUTROPHILS % (AUTO) 52.3 %; PLT - PLATELET COUNT 190 10^3/uL (130-450); RED CELL DISTRIBUTION WIDTH 12.8 % (12.0-15.0); WHITE BLOOD COUNT 8.4 x10^3/uL (4.8-10.8)
[2021-07-03] MEDS ORDERED: IOVERSOL 320 100 ML VIAL IVP ONE (17:25)
[2021-07-03 17:33] LABS: ALBUMIN 3.8 g/dL (3.2-5.5); ALBUMIN/GLOBULIN RATIO 1.1 (1.0-2.2); CALCIUM 9.3 mg/dL (8.5-10.3); CREATININE 0.6 mg/dL (0.4-1.0); POTASSIUM 3.5 mmol/L (3.5-5.0); TOTAL PROTEIN 7.2 g/dL (6.7-8.2)
[2021-07-03 17:33] LABS: BILIRUBIN,URINE NEGATIVE (NEGATIVE); GLUCOSE, URINE (UA) NEGATIVE (NEGATIVE); KETONES,URINE (UA) TRACE mg/dL (NEGATIVE); LEUKOCYTE ESTERASE, URINE MODERATE (NEGATIVE); NITRITE,URINE NEGATIVE (NEGATIVE); OCCULT BLOOD,URINE TRACE-INTA (NEGATIVE); PROTEIN,URINE NEGATIVE (NEGATIVE); UROBILINOGEN,URINE 0.2 (NORMAL) E.U./dL (NORMAL)
[2021-07-03 17:36] LABS: CLARITY,URINE HAZY (CLEAR)
[2021-07-03 17:39] LABS: RBC,URINE 0-5 /HPF (0-5); SQUAMOUS EPITHELIAL CELL,UR MOD Squamous (<= Few)
[2021-07-03 17:40] LABS: BACTERIA,URINE Few /HPF (None Seen)
[2021-07-03] MEDS: HYDROmorphone 1 MG/ML CARPUJECT IVP STA (17:40)
[2021-07-03] MEDS: ONDANSETRON 4 MG/2 ML VIAL IVP STA ×2 (17:40→19:04)
[2021-07-03] MEDS: SODIUM CHLORIDE 0.9% 1,000 ML IV STA (17:40)
[2021-07-03] MEDS: SALINE ENEMA 133 ML BOTTLE RC STA (17:57)
[2021-07-03] MEDS: IOVERSOL 320 100 ML VIAL IVP ONE (18:07)
[2021-07-03] MEDS: PROCHLORPERAZINE 10 MG/2 ML VIAL IVP STA (18:34)
--- NOTE | 2021-07-03 19:11 | CT Report ---
PROCEDURE: Abdomen/Pelvis W INDICATIONS: RUQ abd pain CONTRAST: IV CONTRAST: Optiray 320 ml: 100 PO CONTRAST: *NO PO CONTRAST TECHNIQUE: After the administration of intravenous contrast, 5 mm thick sections acquired from the diaphragms to the symphysis. 5 mm thick coronal and sagittal reformats were acquired. For radiation dose reducti on, the following was used: automated exposure control, adjustment of mA and/or kV according to brittny ent size. COMPARISON: CT abdomen and pelvis without contrast, 09/16/2020. CT abdomen and pelvis with contrast, 07/15/2019.. FINDINGS: Image quality: Excellent. ABDOMEN: Lung bases: Lung bases are clear. Heart size is normal. Small hiatal hernia. Solid organs: Liver i s normal in size. There is hepatic steatosis. Gallbladder is normal. Biliary system is mildly dilat ed. Common bile duct measures 8 mm. Spleen is normal. There is a 1 cm splenule in the splenic hilum. Pancreas enhances normally. A 1.5 cm left adrenal nodule is identified, unchanged. Kidneys demonstrate normal size and enhancement, without hydronephrosis. There is a 2.4 x 3.9 cm mass like density in the right renal hilum. Compared with the prior examinations, it appears unchanged. A 1.2 cm low-density cortical nodule in the superior pole of the right kidney is most likely a cyst. Peritoneum and bowel: Bowel loops demonstrate normal wall thickness and caliber. There is a moderat e amount of stool in colon. No free fluid or air. Nodes and vessels: No retroperitoneal or mesenteric adenopathy by size criteria. Aorta and inferior vena cava are normal in size. Note is made of retroaortic left renal vein. Miscellaneous: Tiny fat-containing umbilical hernia. PELVIS: Genitourinary: Bladder wall thickness is normal. Miscellaneous: No inguinal hernias or adenopathy. Bones: No suspicious bony lesions. No vertebral body compression fractures. Moderate levoscoliosis. Severe degenerative changes in lumbar spine. There is osteopenia. IMPRESSION: 1. There is mild intrahepatic and extrahepatic biliary dilation. Please correlate with serum bilirubi n for biliary obstruction. If clinically indicated, MRCP may be helpful. 2. Hepatic steatosis. 3. A 1.5 cm left adrenal nodule, unchanged in size since 2019, favoring benign normal. Adrenal protoc ol CT or MRI may be helpful for further evaluation if clinically indicated. 4. A 2.4 x 3.9 cm masslike density in the right hilum, unchanged. If clinically indicated, further ev aluation with ultrasound or MRI would be helpful. 5. Scoliosis and severe degenerative changes in lumbar spine. Reviewed by: Funmi Ruiz MD on 07/03/2021 7:09 PM PDT Approved by: Funmi Ruiz MD on 07/03/2021 7:09 PM PDT Station ID: [id number]
[2021-07-03] MEDS: MORPHINE ER 15 MG TABLET PO STA (19:33)
[2021-07-03 19:45] VITALS: BP 158/88
[2021-07-03] MEDS: METOCLOPRAMIDE 10 MG/2 ML VIAL IVP STA (20:17)
--- NOTE | 2021-07-03 21:04 | ED Physician Documentation ---
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 PLANT CONSTRUCTION WORKER: Dilation and currettage, Tubal ligation - Present Medications Home Medications: Ambulatory Orders Medication Instructions Recorded Confirmed HYDROcod/ACETAM 5/325 [Vicodin 1 - 2 ea PO TID 02/05/13 04/27/21 5/325] Levothyroxine [Synthroid] 125 mcg PO QDAC 02/05/13 04/27/21 traZODone [Desyrel] 200 mg PO DAILY PM 10/24/13 04/27/21 Aspirin 325 mg PO DAILY 11/15/13 04/27/21 Ondansetron [Zofran] 4 mg PO Q6H PRN #10 tablet 01/02/14 04/27/21 Famotidine [Pepcid] 20 mg PO ONCE #30 tablet 07/06/18 04/27/21 Morphine ER [Morphine Sulfate ER] 30 mg PO TID 04/10/21 04/27/21 cephALEXin [Keflex] 500 mg PO BID #14 04/10/21 04/27/21 diazePAM [Valium] 2 mg PO BID PRN 04/10/21 04/27/21 - Allergies Allergies/Adverse Reactions: Allergies Allergy/AdvReac Type Severity Reaction Status Date / Time naproxen [From Naprosyn] Allergy Mild Unknown Verified 07/03/21 16:57 - Social History Does the pt smoke?: No Smoking Status: Never smoker Does the pt drink ETOH?: No Does the pt have substance abuse?: No - Immunizations Immunizations are current?: Yes - POLST Patient has POLST: Yes POLST Status: DNR Results - Vitals Vitals: Vital Signs - 24 hr 07/03/21 07/03/21 07/03/21 16:53 18:34 18:52 Temperature 36.8 C Heart Rate 59 L 62 64 Respiratory 16 18 18 Rate Blood Pressure 126/73 162/69 H 162/69 H O2 Saturation 99 100 95 07/03/21 19:43 Temperature Heart Rate 68 Respiratory 18 Rate Blood Pressure 158/88 H O2 Saturation 97 Oxygen O2 Source Room air - Labs Labs: Laboratory Tests 07/03/21 07/03/21 07/03/21 17:10 17:10 17:30 WBC 8.4 RBC 4.40 Hgb 14.4 Hct 43.8 MCV 99.5 H MCH 32.7 H MCHC 32.9 RDW 12.8 Plt Count 190 MPV 9.6 Neut # (Auto) 4.4 Lymph # (Auto) 3.0 [place] # (Auto) 0.7 Eos # (Auto) 0.3 Baso # (Auto) 0.1 Absolute Nucleated RBC 0.00 Nucleated RBC % 0.0 Sodium 142 Potassium 3.5 Chloride 101 Carbon Dioxide 31 Anion Gap 10.0 BUN 13 Creatinine 0.6 Estimated GFR (MDRD) 99 Glucose 98 Calcium 9.3 Total Bilirubin 1.0 AST 17 ALT 10 Alkaline Phosphatase 71 Total Protein 7.2 Albumin 3.8 Globulin 3.4 Albumin/Globulin Ratio 1.1 Lipase 28 Urine Color YELLOW Urine Clarity HAZY Urine pH 5.0 Ur Specific [place] 1.025 Urine Protein NEGATIVE Urine Glucose (UA) NEGATIVE Urine Ketones TRACE Urine Occult Blood TRACE-INTA Urine Nitrite NEGATIVE Urine Bilirubin NEGATIVE Urine Urobilinogen 0.2 (NORMAL) Ur Leukocyte Esterase MODERATE H Urine RBC 0-5 Urine WBC 6-10 H Ur Squamous Epith Cells MOD Squamous H Urine Bacteria Few Ur Microscopic Review INDICATED Urine Culture Comments NOT INDICATED PD MEDICAL DECISION MAKING - ED course Complexity details: reviewed results, re-evaluated patient, d/w patient ED course: 71-year-old female presents emergency department for evaluation of now approximately 3 weeks of right upper quadrant abdominal pain with increasing frequency. Some nausea but no vomiting no fevers. Patient has a history of previous CVA and is also a chronic pain patient. She does take with hydrocodone and extended relief morphine multiple times daily. Today screening labs are essentially unremarkable without leukocytosis or concerning findings within the cavity kidney or liver function test. She did have focal tenderness in the right upper quadrant thus a CT scan was performed. The most significant finding was that of some possible intrahepatic biliary ductal dilation though no obvious stones or secondary findings to suggest cholecystitis was seen. Again her bilirubin was normal. An abdominal ultrasound was attempted to further diagnose however given patient's body habitus this was mostly nondiagnostic study. Patient may need an MRCP in the future. I did discuss the findings on the phone with the patient and her daughter. I have advised very close follow-up with Dr. Cramer at which time patient should be referred for an MRCP. We also discussed the incidental findings of suspected right hilar mass as well and was the left adrenal nodule. Emergent return precautions were discussed. Departure - Departure Disposition: 01 Home, Self Care Clinical Impression: RUQ abdominal pain, Adrenal nodule, Mass of hilum, Dilation of biliary tract Condition: Stable Record reviewed to determine appropriate education?: Yes Instructions: ED Abdominal Pain Unkn Cause Male Follow-Up: Madeline Cramer MD [Primary Care Provider] - Comments: Rosamaria was seen in the emergency department today for few weeks of worsening right upper quadrant abdominal pain. Today her screening labs including her blood count, liver tests kidney tests are all essentially normal. There is no infection in her urine. A CT of her abdomen was completed. The most significant finding was some hepatic biliary dilation. This can sometimes be seen when there are concerns of stones obstructing the biliary tract. However none were seen on CT scan or her abdominal ultrasound. In addition to that her liver tests were essentially normal. An MRCP may be helpful in diagnosing her abdominal pain. There were some incidental findings that have been seen on previous images that include a 1.5 cm left adrenal nodule that has been unchanged in size since 2019. This makes it most likely a benign finding. There is also an approximate 3 cm density in her right hilar area of her lung. This is also unchanged from previous imaging. But an MRI or ultrasound could help diagnose this as well. These are "incidental findings." It is very important that you discuss this ED visit with Dr. Cramer. If at any point her abdominal pain is worsening please return her to the emergency department. Return sooner for fevers, uncontrolled vomiting, black or bloody stools.
--- NOTE | 2021-07-03 21:16 | Ultrasound Report ---
PROCEDURE: Abdomen Limited INDICATIONS: RUQ pain TECHNIQUE: Real-time focused scanning was performed of the abdomen, with image documentation. COMPARISON: CT abdomen and pelvis, 07/03/2021. FINDINGS: . Examination due to body habitus. Liver is normal in size and demonstrates heterogeneous echotexture. Gallbladder is not well seen. No obvious gallstones. Gallbladder wall measures 2.3 mm. No pericholecy stic fluid collection or sonographic Levine sign. Common bile duct is normal in caliber measuring 3.3 mm. Right kidney is normal in size measuring 10.4 cm. There is a 2.3 x 2.2 x 2.2 cm hypoechoic structure in the renal pelvis, demonstrating no vascularity Doppler ultrasound. IMPRESSION: 1. Limited examination due to the patient's body habitus. 2. No gallstones or ultrasound findings to suggest acute cholecystitis. 3. Liver demonstrates heterogeneous echotexture. The finding is nonspecific could be secondary to fat ty infiltration or hepatitis. Recommend clinical correlation. 4. Normal caliber of common bile duct. 5. A 2.3 x 2.2 x 2.2 cm hypoechoic structure in the renal hilum/pelvic area, which demonstrates no va scularity on Doppler ultrasound, this could represent a parapelvic cyst. Reviewed by: Funmi Ruiz MD on 07/03/2021 9:15 PM PDT Approved by: Funmi Ruiz MD on 07/03/2021 9:15 PM PDT Station ID: [id number]
== END 2021-07-03 21:40 | disposition home or self-care (01) ==
LOC: ED 16:47
DX: R10.11 Right upper quadrant pain (principal); E27.8 Other specified disorders of adrenal gland; R91.8 Other nonspecific abnormal finding of lung field; Z66 Do not resuscitate; K83.9 Disease of biliary tract, unspecified
CPT/HCPCS: 36415; 74177; 76705; 80053; 81001; 83690; 85025; 96374; 96375; 99283; 99285; A9270; J1170; J2765; Q9967; 81003; 87086

== ENCOUNTER 2021-11-14 18:10 | Outpatient (CLI) | payer MEDICARE | END 2021-11-14 18:11 | disposition EMS.NT | LOC: EMS 18:10 | DX: Z03.89 Encounter for observation for other suspected diseases and conditions ruled out (principal) ==

== ENCOUNTER 2021-12-03 21:17 | Outpatient (CLI) | payer MEDICARE | END 2021-12-03 21:18 | disposition critical access hospital (66) | LOC: EMS 21:17 | DX: R41.82 Altered mental status, unspecified (principal) | CPT/HCPCS: A0425; A0429 ==

== ENCOUNTER 2021-12-03 21:30 | Emergency (ER) | payer MEDICARE ==
--- NOTE | 2021-12-03 21:37 | ED Physician Documentation ---
PD HPI FOCAL NEURO - Stated complaint Stated Complaint: POSS STROKE - History obtained from History obtained from: Patient, Family (granddaughter says she has control of patient med case, so that no extra-dosing by patient.) - History of Present Illness Timing - onset: Today (this afternoon between 3:30 and 5:30 (granddaughter went out for errands and came back finding patient altered). history of prior CVAs with dysarthria but was now less interactive, aphasic with word search, and seemed blank stare/slow answers.) Timing - details: Abrupt onset (onset between 4 and 6 hours ago.) Severity of deficit: Moderate Weakness: No: Face, Arm, Leg Numbness: No: Face, Arm, Leg Associated symptoms: Other (see above: aphasia, confused, slow to respond.). No: Headache, Nausea / vomiting Contributing factors: negative: Anticoagulated Baseline status: positive: A&OX3, ambulatory, indep, Mildly confused, Other (dysarthria) Similar symptoms before: Diagnosis (prior CVA and some episodes similar dx as possible TIAs. Also similar symptoms with illness/infections.) Review of Systems Constitutional: denies: Fever Nose: denies: Congestion Throat: denies: Sore throat Cardiac: denies: Chest pain / pressure Respiratory: denies: Cough GI: denies: Abdominal Pain, Vomiting, Diarrhea Neurologic: reports: Confused, Altered mental status. 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 : None HEENT: None Psych: Depression, Anxiety, Panic attacks Musculoskeletal: Osteoarthritis Derm: None - Past Surgical History Past Surgical History: Yes General: Appendectomy Ortho: Arthroscopic surgery /REHABILITATION SERVICES AIDE: Dilation and currettage, Tubal ligation - Present Medications Home Medications: Ambulatory Orders Medication Instructions Recorded Confirmed HYDROcod/ACETAM 5/325 [Vicodin 1 - 2 ea PO TID 02/05/13 04/27/21 5/325] Levothyroxine [Synthroid] 125 mcg PO QDAC 02/05/13 04/27/21 traZODone [Desyrel] 200 mg PO DAILY PM 10/24/13 04/27/21 Aspirin 325 mg PO DAILY 11/15/13 04/27/21 Ondansetron [Zofran] 4 mg PO Q6H PRN #10 tablet 01/02/14 04/27/21 Famotidine [Pepcid] 20 mg PO ONCE #30 tablet 07/06/18 04/27/21 Morphine ER [Morphine Sulfate ER] 30 mg PO TID 04/10/21 04/27/21 cephALEXin [Keflex] 500 mg PO BID #14 04/10/21 04/27/21 diazePAM [Valium] 2 mg PO BID PRN 04/10/21 04/27/21 - Allergies Allergies/Adverse Reactions: Allergies Allergy/AdvReac Type Severity Reaction Status Date / Time naproxen [From Naprosyn] Allergy Mild Unknown Verified 07/03/21 16:57 - Social History Does the pt smoke?: No Smoking Status: Never smoker Does the pt drink ETOH?: No Does the pt have substance abuse?: No - Immunizations Immunizations are current?: Yes - POLST Patient has POLST: Yes POLST Status: DNR PD ED PE NORMAL - Vitals Vital signs reviewed: Yes - General General: No acute distress, Well developed/nourished. No: Alert and oriented X 3 (somnolent but eyes open to touch/verbal. Attempting to answer questions, but blank stare and slow, then difficulty articulating. Able to nod reply better. ) - HEENT HEENT: Atraumatic, PERRL (constricted pupils.), EOMI - Neck Neck: Supple, no meningeal sign, No adenopathy - Cardiac Cardiac: RRR, No murmur - Respiratory Respiratory: Clear bilaterally - Abdomen Abdomen: Soft, Non tender, Non distended - Derm Derm: Normal color, Warm and dry - Neuro Neuro: No motor deficit, No sensory deficit. No: Normal speech Eye Opening: To Voice Motor: Obeys Commands Verbal: Confused GCS Score: 13 NIHSS - Level of Consciousness Level of consciousness: (0) Alert, Keenly responsive LOC Questions: (2) Answers neither correct LOC Commands: (0) Performs both correctly - Gaze Best Gaze: (0) Normal - Visual Visual: (0) No loss - Facial Palsy Facial Palsy: (0) Normal, symmetrical movement - Motor Arms (both separate) Motor Arm (right): (0) No drift Motor Arm (left): (0) No drift - Motor Legs (both separate) Motor Leg (right): (0) No drift Motor Leg (left): (0) No drift - Limb Ataxia Limb Ataxia: (0) Absent - Sensory Sensory: (0) Normal - Best Language Best Language: (2) Severe aphasia - Dysarthria Dysarthria: (1) [id number] dysarthria - Extinction and Inattention (formally neg Extinction and inattention: (0) No abnormality - Total Score/Results Total Score/Result: 5 Results - Vitals Vitals: Vital Signs - 24 hr 12/03/21 12/03/21 12/03/21 21:36 21:52 23:47 Temperature 36.6 C Heart Rate 60 66 100 Respiratory 16 13 12 Rate Blood Pressure 110/57 L 102/71 157/93 H O2 Saturation 98 99 12/04/21 00:51 Temperature Heart Rate 100 Respiratory 12 Rate Blood Pressure 157/93 H O2 Saturation 99 Oxygen O2 Source Room air - Labs Labs: Laboratory Tests 12/03/21 12/03/21 12/03/21 21:45 21:45 21:45 WBC 11.8 H RBC 4.20 Hgb 13.5 Hct 40.0 MCV 95.2 MCH 32.1 H MCHC 33.8 RDW 14.0 Plt Count 172 MPV 10.1 Neut # (Auto) 7.0 H Lymph # (Auto) 3.5 [place] # (Auto) 1.0 Eos # (Auto) 0.3 Baso # (Auto) 0.1 Absolute Nucleated RBC 0.00 Nucleated RBC % 0.0 PT 11.3 INR 1.0 APTT 24.8 L Sodium 131 L Potassium 2.9 L Chloride 90 L Carbon Dioxide 30 Anion Gap 11.0 BUN 42 H Creatinine 1.7 H Estimated GFR (MDRD) 30 L Glucose 113 H Calcium 8.5 Total Bilirubin 0.5 AST 17 ALT 11 Alkaline Phosphatase 66 Total Protein 6.9 Albumin 3.9 Globulin 3.0 Albumin/Globulin Ratio 1.3 Lipase 47 Ethyl Alcohol 6.0 - Rads (name of study) head CT Radiology: Prelim report reviewed (no acute process), See rad report PD MEDICAL DECISION MAKING - ED course Complexity details: re-evaluated patient (Patient eyes open and conversant, smiling. Seems more likely that she had med effect or such, but consider potential TIA. She is already on aspirin. Granddaughter and patient want to go home. Seems reasonable. ), considered differential, d/w patient, d/w family (granddaughter) Departure - Departure Disposition: 01 Home, Self Care Clinical Impression: Hypokalemia Altered mental status Qualifiers: Altered mental status type: unspecified Qualified Code(s): R41.82 - Altered mental status, unspecified Condition: Stable Record reviewed to determine appropriate education?: Yes Instructions: ED Altered Loc, ED Diet High Potassium Follow-Up: Madeline Cramer MD [Primary Care Provider] - Comments: It is unclear the cause of your altered mentation earlier. It could be an effect of hydration, tiredness, medications, etc. It could represent a brief TIA episode as well. You seem to be back to your usual now. Your CT scan of the head did not show any acute abnormalities. The old strokes were evident. Your basic blood test showed a low potassium but nothing else otherwise abnormal. Continue with your current medications including in particular aspirin a day. Have a high potassium diet the next week or 2. Follow-up with your primary care if recurrent episodes or problems or return to the ER. Discharge Date/Time: 12/04/21 00:53
[2021-12-03 21:51] LABS: BASOPHILS # (AUTO) 0.1 10^3/uL (0.0-0.1); BASOPHILS % (AUTO) 0.5 %; EOSINOPHILS # (AUTO) 0.3 10^3/uL (0.0-0.7); EOSINOPHILS % (AUTO) 2.2 %; HGB - HEMOGLOBIN 13.5 g/dL (12.0-16.0); LYMPHOCYTES # (AUTO) 3.5 10^3/uL (1.5-3.5); LYMPHOCYTES % (AUTO) 29.8 %; MEAN CORPUSCULAR HEMOGLOBIN 32.1 pg (27.0-31.0); MEAN CORPUSCULAR HGB CONC 33.8 g/dL (32.0-36.0); MEAN CORPUSCULAR VOLUME 95.2 fL (81.0-99.0); MEAN PLATELET VOLUME 10.1 fL (7.9-10.8); MONOCYTES % (AUTO) 8.3 %; NEUTROPHILS % (AUTO) 58.9 %; PLT - PLATELET COUNT 172 10^3/uL (130-450); WHITE BLOOD COUNT 11.8 x10^3/uL (4.8-10.8)
[2021-12-03 21:57] LABS: PT - PROTHROMBIN TIME 11.3 secs (9.9-12.6)
[2021-12-03 22:04] LABS: ALBUMIN 3.9 g/dL (3.2-5.5); ALBUMIN/GLOBULIN RATIO 1.3 (1.0-2.2); BILIRUBIN,TOTAL 0.5 mg/dL (0.2-1.0); CALCIUM 8.5 mg/dL (8.5-10.3); CREATININE 1.7 mg/dL (0.4-1.0); POTASSIUM 2.9 mmol/L (3.5-5.0); TOTAL PROTEIN 6.9 g/dL (6.7-8.2)
[2021-12-03] MEDS ORDERED: IOVERSOL 320 100 ML VIAL IVP ONE (22:04)
[2021-12-03 22:07] LABS: PARTIAL THROMBOPLASTIN TIME 24.8 secs (24.9-33.3)
--- NOTE | 2021-12-03 22:45 | CT Report ---
PROCEDURE: Head W/O Stroke Protocol INDICATIONS: confused, aphasia onset between 3 and 5 pm TECHNIQUE: Noncontrast 4.5 mm thick angled axial sections acquired from the foramen magnum to the vertex, with c oronal reformats. For radiation dose reduction, the following was used: automated exposure control, adjustment of mA and/or kV according to patient size. COMPARISON: CT head 04/27/2021. FINDINGS: Image quality: There is mild motion artifact. CSF spaces: There is mild cerebral volume loss with prominence of the ventricles and sulci. Basal ci sterns are patent. No extra-axial fluid collections. Brain: No intracranial hemorrhage, mass, or mass effect. There are areas of encephalitis are redemon strated within the left frontal and bilateral occipital lobes consistent with sequelae of prior infar cts. There are subcortical and periventricular white matter hypodensities consistent with chronic sma ll vessel ischemic changes. Skull and face: Calvarium and visualized facial bones are intact, without suspicious lesions. Sinuses: Visualized sinuses and mastoids are clear. IMPRESSION: 1. No definite acute intracranial abnormality. Specifically, no imaging contraindications to TPA iden tified. 2. Areas of encephalomalacia in the left frontal and bilateral occipital lobes consistent with sequel ae of prior infarct redemonstrated. Findings reported to Dr. Schwartz on 12/03/2021 at 10:42 PM. This study fulfills neurological imaging criteria for inclusion or exclusion of acute stroke therapie s based on available published neurological imaging guidelines. Reviewed by: Best Polanco MD on 12/03/2021 10:44 PM PDT Approved by: Best Polanco MD on 12/03/2021 10:44 PM PDT Station ID: [id number]
[2021-12-03] MEDS ORDERED: POTASSIUM CHLOR 10 MEQ/100 ML 10 MEQ/100 ML BAG IV STA (22:56)
[2021-12-03] MEDS ORDERED: POTASSIUM CHLORIDE 20 MEQ TABLET PO STA (22:56)
[2021-12-03] MEDS ORDERED: traZODone 50 MG TABLET PO STA (23:37)
[2021-12-03] MEDS ORDERED: HYDROmorphone 1 MG/ML CARPUJECT IVP STA (23:37)
[2021-12-03 23:50] VITALS: BP 157/93
== END 2021-12-04 00:53 | disposition home or self-care (01) ==
LOC: EDUNIT# → ED 21:30
DX: E87.6 Hypokalemia (principal); R41.82 Altered mental status, unspecified; Z66 Do not resuscitate
CPT/HCPCS: 36415; 70450; 80053; 83690; 85025; 85610; 85730; 93005; 96365; 96375; 99284; A9270; G0480; J1170; 80320

== ENCOUNTER 2022-06-21 07:30 | Outpatient (CLI) | payer MEDICARE | END 2022-06-21 07:31 | disposition EMS.NT | LOC: EMS 07:30 | DX: R53.1 Weakness (principal) ==

== ENCOUNTER 2022-12-12 18:19 | Outpatient (CLI) | payer MEDICARE | END 2022-12-12 23:59 | disposition home or self-care (01) | LOC: LAB.N 18:19 | PROVIDERS: ATTEND Physician Assistant Medical | DX: N30.00 Acute cystitis without hematuria (principal) | CPT/HCPCS: 87086; 87181 ==

== ENCOUNTER 2022-12-13 21:59 | Outpatient (CLI) | payer MEDICARE | END 2022-12-13 22:00 | disposition critical access hospital (66) | LOC: EMS 21:59 | DX: M79.662 Pain in left lower leg (principal); R60.0 Localized edema; R23.8 Other skin changes | CPT/HCPCS: A0425; A0429 ==

== ENCOUNTER 2022-12-13 23:15 | Emergency (ER) | payer MEDICARE ==
--- NOTE | 2022-12-14 00:29 | Ultrasound Report ---
PROCEDURE: Duplex Ext Veins Left INDICATIONS: RED SWOLLEN, LLE TECHNIQUE: Real-time imaging, as well as color and pulse Doppler interrogation, were performed of the lower extr emity deep veins from the inguinal ligament to the popliteal fossa. COMPARISON: None. FINDINGS: The deep veins are normally compressible, and free of intraluminal thrombus. Color and pu lse Doppler demonstrate normal phasic intraluminal flow. There is normal augmentation response to di stal compression maneuver. Calf edema. IMPRESSION: Limited exam. Calf veins are not well seen. No left lower extremity DVT. Reviewed by: Prince Encarnacion MD on 12/14/2022 12:27 AM PDT Approved by: Prince Encarnacion MD on 12/14/2022 12:27 AM PDT Station ID: [id number]
--- NOTE | 2022-12-14 01:04 | ED Physician Documentation ---
History of Present Illness - Stated complaint Stated Complaint: LEG SWELLING - Chief complaint Chief Complaint: Ext Problem - History obtained from History obtained from: Patient - Additonal information Additional information: 72-year-old woman with history of lymphedema, hypothyroidism, presents with left lower extremity swelling and erythema worsening over the past day. Patient was diagnosed with UTI yesterday and is on Bactrim. She has no history of blood clots but daughter is concerned for clot as well as for her lymphedema worsening.Denies fever. 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 - Past Surgical History Past Surgical History: Yes General: Appendectomy Ortho: Arthroscopic surgery /TELEMARKETING MANAGER: Dilation and currettage, Tubal ligation - Present Medications Home Medications: Ambulatory Orders Medication Instructions Recorded Confirmed HYDROcod/ACETAM 5/325 [Vicodin 1 - 2 ea PO TID 02/05/13 04/27/21 5/325] Levothyroxine [Synthroid] 125 mcg PO QDAC 02/05/13 04/27/21 traZODone [Desyrel] 200 mg PO DAILY PM 10/24/13 04/27/21 Aspirin 325 mg PO DAILY 11/15/13 04/27/21 Ondansetron [Zofran] 4 mg PO Q6H PRN #10 tablet 01/02/14 04/27/21 Famotidine [Pepcid] 20 mg PO ONCE #30 tablet 07/06/18 04/27/21 Morphine ER [Ms Contin] 30 mg PO TID 04/10/21 04/27/21 cephALEXin [Keflex] 500 mg PO BID #14 04/10/21 04/27/21 diazePAM [Valium] 2 mg PO BID PRN 04/10/21 04/27/21 cephALEXin [Keflex] 500 mg PO Q6H #28 tab 12/14/22 - Allergies Allergies/Adverse Reactions: Allergies Allergy/AdvReac Type Severity Reaction Status Date / Time naproxen [From Naprosyn] Allergy Mild Unknown Verified 12/13/22 23:00 - Social History Does the pt smoke?: No Smoking Status: Never smoker Does the pt drink ETOH?: No Does the pt have substance abuse?: No - Immunizations Immunizations are current?: Yes - POLST Patient has POLST: Yes POLST Status: DNR PD ED PE NORMAL - Vitals Vital signs reviewed: Yes - General General: Alert and oriented X 3, No acute distress, Other (large body habitus) - HEENT HEENT: Atraumatic, PERRL, EOMI - Neck Neck: Supple, no meningeal sign - Derm Derm: Normal color, Warm and dry, Other (Erythema to left lower extremity) - Extremities Extremities: Other (Swelling and erythema to left lower extremity. Bilateral lymphedema. 1+ bilateral DP pulses.) Results - Vitals Vitals: Vital Signs - 24 hr 12/13/22 12/13/22 12/13/22 22:25 23:01 23:12 Temperature 36.8 C Heart Rate 70 Respiratory 20 20 18 Rate Blood Pressure 188/79 H O2 Saturation 100 12/14/22 00:09 Temperature Heart Rate 68 Respiratory 18 Rate Blood Pressure 178/71 H O2 Saturation 98 Oxygen O2 Source Room air PD Medical Decision Making - ED course ED course: 72-year-old woman with history of chronic lymphedema presents withLeft leg swelling and redness starting today. She is also having significant pain. Her ultrasound was nondiagnostic but I have low suspicion for DVT. It is more likely a cellulitis therefore Keflex was added onto her Bactrim which she is already taking for UTI. I advised the patient to follow-up with her primary care provider for repeat ultrasound in 2 weeks to confirm no blood clot. Return precautions were given. Departure - Departure Disposition: 01 Home, Self Care Clinical Impression: Lymphedema, Cellulitis Condition: Stable Instructions: Cellulitis Dc Prescriptions: cephALEXin [Keflex] 500 mg PO Q6H #28 tab Comments: You were seen in the emergency department for evaluation of leg swelling and redness. Please take your antibiotics as prescribed and follow-up for repeat ultrasound in 2 weeks with your primary care provider.Return to the emergency department if your redness does not improve in 48 hours Or if you have other concerns.
[2022-12-14] MEDS ORDERED: cephALEXin 250 MG CAPSULE PO STA (01:05)
[2022-12-14 01:25] VITALS: BP 179/80
== END 2022-12-14 02:02 | disposition home or self-care (01) ==
LOC: ED 23:15
DX: L03.116 Cellulitis of left lower limb (principal); I89.0 Lymphedema, not elsewhere classified; I10 Essential (primary) hypertension
CPT/HCPCS: 93971; 99283; 99284; A9270

== ENCOUNTER 2022-12-24 08:00 | Outpatient (CLI) | payer MEDICARE | END 2022-12-24 23:59 | disposition home or self-care (01) | LOC: LAB.N 08:00 | PROVIDERS: ATTEND Nurse Practitioner | DX: R30.0 Dysuria (principal) | CPT/HCPCS: 87086 ==

== ENCOUNTER 2023-02-02 11:59 | Emergency (ER) | payer MEDICARE ==
[2023-02-02] MEDS ORDERED: DEXAMETHASONE 10 MG/ML VIAL IM STA (12:39)
[2023-02-02] MEDS ORDERED: HYDROmorphone 1 MG/ML CARPUJECT IM STA (12:40)
--- NOTE | 2023-02-02 12:45 | ED Physician Documentation ---
History of Present Illness - Stated complaint Stated Complaint: LOWER BACK PX - Chief complaint Chief Complaint: Back Pain - History obtained from History obtained from: Patient, Family - Additonal information Additional information: The patient is brought to the emergency department by private vehicle for chief complaint of back pain. The patient has a longstanding history of chronic low back pain and states it is flaring up on her. She states it feels like the same pain she has had before but worse than her baseline. The patient also reports some upper back pain but she not really sure why she has upper back pain. She denies any falls or other trauma. No increased or decreased activity she thinks although her granddaughter thinks she has been lying in bed a little more lately, due to the edema in her legs. The patient denies any fevers or chills. She states she is almost out of her medications but her granddaughter states the patient has a refill that she is picking up tomorrow. She also states she has an appointment with Dr. Cramer, her primary care physician, on February 07. The patient denies any new bowel or bladder changes. The granddaughter states she mainly brought the patient here to see if she can get a dose of some medicine for her pain and says she would Yousef the pain medicine she has at home. The patient notes she is no longer seeing a chronic pain specialist. She states she is on morphine and hydrocodone at home. PD PAST MEDICAL HISTORY - Past Medical History Cardiovascular: Hypertension, High cholesterol Respiratory: None Neuro: CVA, Headaches Endocrine/Autoimmune: HyPOthyroidism GI: None DYE ROOM HELPER: None : None HEENT: None Psych: Depression, Anxiety, Panic attacks Musculoskeletal: Osteoarthritis Derm: None - Past Surgical History Past Surgical History: Yes General: Appendectomy Ortho: Arthroscopic surgery /DYE ROOM HELPER: Dilation and currettage, Tubal ligation - Present Medications Home Medications: Ambulatory Orders Medication Instructions Recorded Confirmed HYDROcod/ACETAM 5/325 [Vicodin 1 - 2 ea PO TID 02/05/13 04/27/21 5/325] Levothyroxine [Synthroid] 125 mcg PO QDAC 02/05/13 04/27/21 traZODone [Desyrel] 200 mg PO DAILY PM 10/24/13 04/27/21 Aspirin 325 mg PO DAILY 11/15/13 04/27/21 Ondansetron [Zofran] 4 mg PO Q6H PRN #10 tablet 01/02/14 04/27/21 Famotidine [Pepcid] 20 mg PO ONCE #30 tablet 07/06/18 04/27/21 Morphine ER [Ms Contin] 30 mg PO TID 04/10/21 04/27/21 cephALEXin [Keflex] 500 mg PO BID #14 04/10/21 04/27/21 diazePAM [Valium] 2 mg PO BID PRN 04/10/21 04/27/21 cephALEXin [Keflex] 500 mg PO Q6H #28 tab 12/14/22 predniSONE [Deltasone] 10 mg PO [id number] #42 tab 02/02/23 - Allergies Allergies/Adverse Reactions: Allergies Allergy/AdvReac Type Severity Reaction Status Date / Time naproxen [From Naprosyn] Allergy Mild Unknown Verified 12/13/22 23:00 - Social History Does the pt smoke?: No Smoking Status: Never smoker Does the pt drink ETOH?: No Does the pt have substance abuse?: No - Immunizations Immunizations are current?: Yes - POLST Patient has POLST: Yes POLST Status: DNR PD ED PE NORMAL - Vitals Vital signs reviewed: Yes - General General: No acute distress, Other (Morbidly obese, alert but somewhat confused.) - HEENT HEENT: Atraumatic, PERRL, EOMI, Moist mucous membranes - Neck Neck: Supple, no meningeal sign - Cardiac Cardiac: RRR, No murmur - Respiratory Respiratory: No respiratory distress, Clear bilaterally - Abdomen Abdomen: Soft, Non tender, Other (Obese) - Back Back: Other (Mild tenderness over her lumbar spine. No thoracic tenderness at any level.) - Derm Derm: Normal color, Warm and dry, No rash - Extremities Extremities: No deformity, Other (Severe lymphedema bilaterally) - Neuro Neuro: Alert and oriented X 3 - Psych Psych: Normal mood, Normal affect Results - Vitals Vitals: Vital Signs - 24 hr 02/02/23 02/02/23 02/02/23 12:02 12:30 13:00 Temperature 36 C L Heart Rate 66 64 60 Respiratory 16 16 16 Rate Blood Pressure 151/90 H 198/62 H 185/96 H O2 Saturation 100 98 92 Oxygen O2 Source Room air - Labs Labs: Laboratory Tests 02/02/23 12:25 Urine Color YELLOW Urine Clarity CLEAR Urine pH 8.5 H Ur Specific [place] 1.015 Urine Protein NEGATIVE Urine Glucose (UA) NEGATIVE Urine Ketones NEGATIVE Urine Occult Blood NEGATIVE Urine Nitrite NEGATIVE Urine Bilirubin NEGATIVE Urine Urobilinogen 0.2 (NORMAL) Ur Leukocyte Esterase NEGATIVE Ur Microscopic Review NOT INDICATED Urine Culture Comments NOT INDICATED PD Medical Decision Making - ED course Complexity details: considered differential, d/w patient, d/w family ED course: The patient's back pain was consistent with prior episodes, and she had not had any exacerbating factors. Furthermore, she did not have any symptoms consistent with an emergent cause or complication of the back pain and I felt that there was no indication at this point for emergent imaging. Patient was treated symptomatically with Decadron and Dilaudid. I did speak at length with her granddaughter, who is comfortable taking her home. Departure - Departure Disposition: 01 Home, Self Care Clinical Impression: Acute exacerbation of chronic low back pain Condition: Stable Instructions: ED Neck Back Pain General Prescriptions: predniSONE [Deltasone] 10 mg PO [id number] #42 tab Comments: There is no obvious cause for your flareup of your back pain at this time. You may have been in bed too much or it may just be strain from the normal activities of life that has caused your pain to flare up. You have been treated with a steroid and a dose of pain medication in the emergency department. 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 Please continue your plans to follow-up with Dr. Cramer next week. A prescription for a steroid taper has been electronically transmitted to the [facility] pharmacy in [place], your pharmacy of choice on record. Discharge Date/Time: 02/02/23 13:19
[2023-02-02 12:49] LABS: BILIRUBIN,URINE NEGATIVE (NEGATIVE); GLUCOSE, URINE (UA) NEGATIVE (NEGATIVE); KETONES,URINE (UA) NEGATIVE (NEGATIVE); LEUKOCYTE ESTERASE, URINE NEGATIVE (NEGATIVE); NITRITE,URINE NEGATIVE (NEGATIVE); OCCULT BLOOD,URINE NEGATIVE (NEGATIVE); PH,URINE 8.5 PH (5.0-7.5); PROTEIN,URINE NEGATIVE (NEGATIVE); UROBILINOGEN,URINE 0.2 (NORMAL) E.U./dL (NORMAL)
[2023-02-02] MEDS ORDERED: ONDANSETRON ODT 4 MG TABLET TL STA (12:55)
[2023-02-02 13:02] LABS: CLARITY,URINE CLEAR (CLEAR)
[2023-02-02 13:19] VITALS: BP 185/96
== END 2023-02-02 13:19 | disposition home or self-care (01) ==
LOC: ED 11:59
DX: M54.50 Low back pain, unspecified (principal); G89.29 Other chronic pain; Z66 Do not resuscitate
CPT/HCPCS: 81003; 96372; 99283; J1170; Q0162; 81001; 87086

== ENCOUNTER 2023-06-20 11:06 | Outpatient (CLI) | payer MEDICARE | END 2023-06-20 11:07 | disposition EMS.NT | LOC: EMS 11:06 | DX: Z03.89 Encounter for observation for other suspected diseases and conditions ruled out (principal) ==

== ENCOUNTER 2023-10-24 07:38 | Outpatient (CLI) | payer MEDICARE | END 2023-10-24 07:39 | disposition left against medical advice (07) | LOC: EMS 07:38 | DX: R53.1 Weakness (principal); R39.89 Other symptoms and signs involving the genitourinary system; R60.0 Localized edema; I48.91 Unspecified atrial fibrillation ==

== ENCOUNTER 2023-11-26 05:30 | Outpatient (CLI) | payer MEDICARE | END 2023-11-26 23:59 | disposition EMS.NT | LOC: EMS 05:30 | DX: Z04.3 Encounter for examination and observation following other accident (principal); W19.XXXA Unspecified fall, initial encounter; Y92.003 Bedroom of unspecified non-institutional (private) residence as the place of occurrence of the external cause ==

== ENCOUNTER 2023-11-28 06:40 | Outpatient (CLI) | payer MEDICARE | END 2023-11-28 23:59 | disposition EMS.NT | LOC: EMS 06:40 | DX: Z03.89 Encounter for observation for other suspected diseases and conditions ruled out (principal) ==

== ENCOUNTER 2023-12-24 15:58 | Outpatient (CLI) | payer MEDICARE | END 2023-12-24 23:59 | disposition critical access hospital (66) | LOC: EMS 15:58 | DX: R47.81 Slurred speech (principal); R53.1 Weakness; R29.810 Facial weakness | CPT/HCPCS: A0425; A0429 ==

== ENCOUNTER 2024-01-08 20:06 | Outpatient (CLI) | payer MEDICARE | END 2024-01-08 20:07 | disposition EMS.NT | LOC: EMS 20:06 | DX: Z03.89 Encounter for observation for other suspected diseases and conditions ruled out (principal) ==

== ENCOUNTER 2024-01-18 09:48 | Outpatient (CLI) | payer MEDICARE | END 2024-01-18 21:57 | disposition critical access hospital (66) | LOC: EMS 09:48 | DX: M79.632 Pain in left forearm (principal); W06.XXXA Fall from bed, initial encounter; Y92.009 Unspecified place in unspecified non-institutional (private) residence as the place of occurrence of the external cause; I48.91 Unspecified atrial fibrillation | CPT/HCPCS: A0425; A0429 ==

== ENCOUNTER 2024-01-18 10:18 | Emergency (ER) | payer MEDICARE ==
[~2024-01-18] VITALS: BP 149/74
[2024-01-18] MEDS: SODIUM CHLORIDE 0.9% 1,000 ML IV STA (10:54)
[2024-01-18 11:05] LABS: BASOPHILS # (AUTO) 0.1 10^3/uL (0.0-0.1); BASOPHILS % (AUTO) 0.4 %; EOSINOPHILS # (AUTO) 0.2 10^3/uL (0.0-0.7); EOSINOPHILS % (AUTO) 1.3 %; HCT - HEMATOCRIT 44.1 % (37.0-47.0); HGB - HEMOGLOBIN 14.4 g/dL (12.0-16.0); LYMPHOCYTES # (AUTO) 2.4 10^3/uL (1.5-3.5); LYMPHOCYTES % (AUTO) 17.9 %; MEAN CORPUSCULAR HGB CONC 32.7 g/dL (32.0-36.0); MEAN PLATELET VOLUME 10.4 fL (7.9-10.8); MONOCYTES # (AUTO) 0.9 10^3/uL (0.0-1.0); MONOCYTES % (AUTO) 6.8 %; NEUTROPHILS # (AUTO) 9.9 10^3/uL (1.5-6.6); NEUTROPHILS % (AUTO) 73.2 %; PLT - PLATELET COUNT 171 10^3/uL (130-450); RED CELL DISTRIBUTION WIDTH 14.2 % (12.0-15.0); WHITE BLOOD COUNT 13.5 x10^3/uL (4.8-10.8)
[2024-01-18 11:20] LABS: ALBUMIN 3.7 g/dL (3.2-5.5); ALBUMIN/GLOBULIN RATIO 1.2 (1.0-2.2); ALKALINE PHOSPHATASE 83 IU/L (42-121); ALT ALANINE AMINOTRANSFERASE 15 IU/L (10-60); AST ASPARTATE AMINOTRANSFERASE 24 IU/L (10-42); BILIRUBIN,TOTAL 0.9 mg/dL (0.2-1.0); BUN - BLOOD UREA NITROGEN 7 mg/dL (6-20); CALCIUM 9.9 mg/dL (8.5-10.3); CARBON DIOXIDE - CO2 30 mmol/L (21-32); CHLORIDE 103 mmol/L (101-111); CREATININE 0.8 mg/dL (0.6-1.3); GFR - MDRD 71 (>89); GLUCOSE 103 mg/dL (74-104); POTASSIUM 4.2 mmol/L (3.5-4.5); SODIUM 141 mmol/L (135-145); TOTAL PROTEIN 6.9 g/dL (6.4-8.9)
[2024-01-18 11:22] LABS: LIPASE < 10 U/L (11-82)
--- NOTE | 2024-01-18 11:54 | CT Report ---
PROCEDURE: Head WO INDICATIONS: fall/head injury/nonverbal from stroke TECHNIQUE: Noncontrast 4.5 mm thick angled axial sections acquired from the foramen magnum to the vertex. For r adiation dose reduction, the following was used: automated exposure control, adjustment of mA and/or kV according to patient size. COMPARISON: CT head 12/24/2023. FINDINGS: Image quality: Excellent. The ventricular system and cortical sulci demonstrate atrophy, consistent for patient's stated age. There are areas of hypodensity in the periventricular and subcortical white matter. There is no acut e intra or extra-axial fluid collection. No acute hemorrhage, mass lesion or midline shift. Brainst em is unremarkable. Focus of low-attenuation is present in the right temporal lobe also identified o n prior exam consistent with prior focus of infarction. Similar is present in the left parietal occip ital lobe and left frontal lobes. Globes are symmetrical. Sinuses are aerated. Osseous structures are intact. IMPRESSION: 1. No acute intracranial process. 2. Moderate atrophy and chronic microvascular ischemic changes. 3. Multiple foci of low-attenuation consistent with areas of previous infarction. Superimposed areas of subacute ischemia cannot be excluded and as clinically indicated, MRI may be obtained. Reviewed by: Qing Shaffer MD on 01/18/2024 11:52 AM PDT Approved by: Qing Shaffer MD on 01/18/2024 11:52 AM PDT Station ID: [id number]
--- NOTE | 2024-01-18 11:59 | CT Report ---
PROCEDURE: Cervical Spine WO INDICATIONS: fall/head inj/nonverbal from stroke TECHNIQUE: Noncontrast 3 mm thick sections acquired from the skull base to the T4 level. Sagittal and coronal r eformats were then constructed. For radiation dose reduction, the following was used: automated exp osure control, adjustment of mA and/or kV according to patient size. COMPARISON: CT head 01/18/2024, 12/24/2023, CT cervical spine 09/18/2023 FINDINGS: Image quality: Excellent. Bones: No fractures or dislocations. Visualized superior ribs are intact. Multilevel degenerative changes are present including moderate to severe degenerative disc space narrowing as well as anterio r osteophytes. There is calcification of posterior longitudinal ligament. Soft tissues: Prevertebral soft tissues are normal in thickness. No paravertebral hematomas. No ap ical pneumothoraces. Prominent right thyroid nodule, unchanged. IMPRESSION: Multilevel degenerative changes without visualized fracture. Reviewed by: Qing Shaffer MD on 01/18/2024 11:58 AM PDT Approved by: Qing Shaffer MD on 01/18/2024 11:58 AM PDT Station ID: [id number]
[2024-01-18 12:30] LABS: BILIRUBIN,URINE NEGATIVE (NEGATIVE); GLUCOSE, URINE (UA) NEGATIVE (NEGATIVE); KETONES,URINE (UA) NEGATIVE (NEGATIVE); LEUKOCYTE ESTERASE, URINE NEGATIVE (NEGATIVE); NITRITE,URINE NEGATIVE (NEGATIVE); OCCULT BLOOD,URINE NEGATIVE (NEGATIVE); PROTEIN,URINE NEGATIVE (NEGATIVE); UROBILINOGEN,URINE 0.2 (NORMAL) E.U./dL (NORMAL)
[2024-01-18 12:33] LABS: CLARITY,URINE CLEAR (CLEAR)
--- NOTE | 2024-01-18 15:26 | ED Physician Documentation ---
History of Present Illness - Stated complaint Stated Complaint: GLF - Chief complaint Chief Complaint: General - History obtained from History obtained from: Patient, Family, EMS - Additonal information Additional information: Patient is brought to the emergency department by EMS for chief complaint of ground-level fall. She is approximately 3-1/2 weeks status post intracranial hemorrhage after being treated with tenecteplase for an ischemic stroke. The patient is minimally verbal and has had issues with gait. She was discharged back to home after being admitted to [place] for 7 days and is living with her daughter and her daughters 2 roommates. Apparently another family member is also coming in to help. The patient also has home health coming for couple hours a day. The daughter states that they could use more help with the patient but that she does not have the money to pay for more. Medics states that the house seem to be in quite a bit of disorder. No obvious injuries. Daughter was on a walk at the time of fall. No other complaints at this time. PD PAST MEDICAL HISTORY - Past Medical History Cardiovascular: Hypertension, High cholesterol Respiratory: None Neuro: CVA, Headaches Endocrine/Autoimmune: HyPOthyroidism GI: None MAGNETIC LOCATER: None : None HEENT: None Psych: Depression, Anxiety, Panic attacks Musculoskeletal: Osteoarthritis Derm: None - Past Surgical History Past Surgical History: Yes General: Appendectomy Ortho: Arthroscopic surgery /MAGNETIC LOCATER: Dilation and currettage, Tubal ligation - Present Medications Home Medications: Ambulatory Orders Medication Instructions Recorded Confirmed HYDROcod/ACETAM 5/325 [Vicodin 1 - 2 ea PO TID 02/05/13 04/27/21 5/325] Levothyroxine [Synthroid] 125 mcg PO QDAC 02/05/13 04/27/21 traZODone [Desyrel] 200 mg PO DAILY PM 10/24/13 04/27/21 Aspirin 325 mg PO DAILY 11/15/13 04/27/21 Ondansetron [Zofran] 4 mg PO Q6H PRN #10 tablet 01/02/14 04/27/21 Famotidine [Pepcid] 20 mg PO ONCE #30 tablet 07/06/18 04/27/21 Morphine ER [Ms Contin] 30 mg PO TID 04/10/21 04/27/21 cephALEXin [Keflex] 500 mg PO BID #14 04/10/21 04/27/21 diazePAM [Valium] 2 mg PO BID PRN 04/10/21 04/27/21 cephALEXin [Keflex] 500 mg PO Q6H #28 tab 12/14/22 predniSONE [Deltasone] 10 mg PO [id number] #42 tab 02/02/23 - Allergies Allergies/Adverse Reactions: Allergies Allergy/AdvReac Type Severity Reaction Status Date / Time naproxen [From Naprosyn] Allergy Severe Edema Verified 12/24/23 16:40 - Social History Does the pt smoke?: No Smoking Status: Never smoker Does the pt drink ETOH?: No Does the pt have substance abuse?: No - Immunizations Immunizations are current?: Yes - POLST Patient has POLST: Yes POLST Status: DNR PD ED PE NORMAL - Vitals Vital signs reviewed: Yes - General General: No acute distress, Well developed/nourished - HEENT HEENT: Atraumatic, PERRL, EOMI, Moist mucous membranes - Neck Neck: Supple, no meningeal sign - Cardiac Cardiac: RRR, No murmur - Respiratory Respiratory: No respiratory distress, Clear bilaterally - Abdomen Abdomen: Soft, Non tender, Non distended - Derm Derm: Normal color, Warm and dry, No rash - Extremities Extremities: No deformity, No edema - Neuro Neuro: Other (Alert, answers some questions with one-word but unable to be articulate.) - Psych Psych: Normal mood, Normal affect Results - Vitals Vitals: Vital Signs - 24 hr 01/18/24 01/18/24 01/18/24 10:18 12:23 14:00 Temperature 36.4 C L Heart Rate 84 65 64 Respiratory 18 13 12 Rate Blood Pressure 154/71 H 162/82 H 148/82 H O2 Saturation 95 98 94 Oxygen O2 Source Room air - Labs Labs: Laboratory Tests 01/18/24 01/18/24 01/18/24 10:40 10:40 12:18 WBC 13.5 H RBC 4.50 Hgb 14.4 Hct 44.1 MCV 98.0 MCH 32.0 H MCHC 32.7 RDW 14.2 Plt Count 171 MPV 10.4 Neut # (Auto) 9.9 H Lymph # (Auto) 2.4 [place] # (Auto) 0.9 Eos # (Auto) 0.2 Baso # (Auto) 0.1 Absolute Nucleated RBC 0.00 Nucleated RBC % 0.0 Sodium 141 Potassium 4.2 Chloride 103 Carbon Dioxide 30 Anion Gap 8.0 BUN 7 Creatinine 0.8 Estimated GFR (MDRD) 71 L Glucose 103 Calcium 9.9 Total Bilirubin 0.9 AST 24 ALT 15 Alkaline Phosphatase 83 Total Protein 6.9 Albumin 3.7 Globulin 3.2 Albumin/Globulin Ratio 1.2 Lipase < 10 L Urine Color DARK YELLOW Urine Clarity CLEAR Urine pH 6.0 Ur Specific [place] >=1.030 H Urine Protein NEGATIVE Urine Glucose (UA) NEGATIVE Urine Ketones NEGATIVE Urine Occult Blood NEGATIVE Urine Nitrite NEGATIVE Urine Bilirubin NEGATIVE Urine Urobilinogen 0.2 (NORMAL) Ur Leukocyte Esterase NEGATIVE Ur Microscopic Review NOT INDICATED Urine Culture Comments NOT INDICATED - Rads (name of study) Head CT Relevant Findings:: Final report received, See rad report (No acute findings) PD Medical Decision Making - ED course Complexity details: reviewed results, re-evaluated patient, considered differential, d/w patient, d/w family ED course: The patient was worked up with labs and head CT and urinalysis with no significant findings. Social work was consulted as the patient's family felt that they would like her to go to a SNF if possible though they were willing to take her home if SNF did not work out. PT and OT were consulted to this end. At this point, social work is still trying to figure out if the patient can go to SNF today. The patient was signed out to Dr. Bobby at change of shift, pending final disposition. Departure - Departure Clinical Impression: Generalized weakness Condition: Stable
[2024-01-18] MEDS ORDERED: ONDANSETRON 4 MG/2 ML VIAL IVP PRN (18:46)
[2024-01-18] MEDS: ACETAMINOPHEN 500 MG TABLET PO PRN (22:44)
--- NOTE | 2024-01-18 23:05 | ED Physician Documentation ---
ED Addendum - Addendum Addendum: 01/18/24 23:05 Social work is still looking for placement for this patient. There were no significant changes during my shift. Patient will be signed out to the oncoming emergency department physician. She will be boarded in the emergency department for continued social work tomorrow.
[2024-01-19] MEDS: oxyCODONE 5 MG TABLET PO STA (02:28)
[2024-01-19] MEDS: PANTOPRAZOLE 40 MG TABLET PO SCH (06:13)
--- NOTE | 2024-01-19 07:02 | ED Physician Documentation ---
ED Addendum - Addendum Addendum: 01/19/24 07:01 No acute events overnight. Plan to endorse to incoming daytime ED MD at 7am shift change.
--- NOTE | 2024-01-19 07:53 | ED Physician Documentation ---
ED Addendum - Addendum Addendum: 01/19/24 07:51 The patient is status post recent stroke several weeks ago. Had been discharged to home with some home health care. Increase services may be needed versus placement at assisted. With her recent hospitalization that may work for short-term rehab. I looked up the pharmacy prescription through [employer] and saw medication for sleep and chronic pain. Not wishing to have her in vein or withdrawal type symptoms,, I did order what had been prescribed which included morphine extended release 30 mg daily as well as hydrocodone 10 mg looks like 3 daily and trazodone 100 mg tablets prescribed 90 of them for 30 days so presumed 300 mg at night. Unclear with her recent stroke whether the same doses on the trazodone would be appropriate. I decreased to 200 mg for now until we get better information.
[2024-01-19] MEDS: MORPHINE ER 15 MG TABLET PO SCH (09:14)
[2024-01-19 10:41] VITALS: O2SAT 97
--- NOTE | 2024-01-19 10:59 | PHARMACY PROGRESS NOTE ---
- Best Possible Medication History Admit Date and Time: Processed by: Nursing Medications reviewed in ED?: Yes Medication History completed: Yes Patient Interview: Completed Secondary Source(s): Insurance records As the person ultimately responsible for medication therapy, providers are able to order a medication from an existing home medication list in [facility] via the "Reconcile Routine" prior to Confirmation of that medication by logistics support. Such practice is discouraged except when the physician, in their clinical judgment, deems that a medical need exists for a medication without regard to previous use.
--- NOTE | 2024-01-19 12:29 | ED Physician Documentation ---
ED Addendum - Addendum Addendum: 01/19/24 12:27 Ena from [employer] states she did find placement for the patient at the [facility] in [place]. We will fill out the paperwork necessary with the temporary senior care orders until her ongoing provider can fill out more detailed. I am working off her current medication list. The patient did not have any particular complaints this morning. Reportedly had breakfast without any problems. The patient will be brought by BLS due to inability to mobilize related to her recent stroke. Disposition the patient is [facility] to a jail in stable condition Diagnoses: 1. General weakness 2. Poor self-care 3. Recent stroke
[2024-01-19] MEDS: HYDROcod/ACETAM 10 MG/325 MG TABLET PO PRN (13:27)
[2024-01-19 13:33] VITALS: BP 149/74
[2024-01-19] MEDS ORDERED: traZODone 50 MG TABLET PO SCH (21:00)
== END 2024-01-19 13:27 ==
LOC: ED 10:18
DX: R53.1 Weakness (principal); W19.XXXA Unspecified fall, initial encounter; Y92.009 Unspecified place in unspecified non-institutional (private) residence as the place of occurrence of the external cause; I10 Essential (primary) hypertension; E78.00 Pure hypercholesterolemia, unspecified; E03.9 Hypothyroidism, unspecified; Z75.1 Person awaiting admission to adequate facility elsewhere; Z86.73 Personal history of transient ischemic attack (TIA), and cerebral infarction without residual deficits; Z79.899 Other long term (current) drug therapy; Z79.82 Long term (current) use of aspirin
CPT/HCPCS: 36415; 70450; 72125; 80053; 81003; 83690; 85025; 97162; 99285; A9270; P9612; 51701; 81001; 87086